=== PATIENT | female | born 1945 | race Caucasian/White ===

== ENCOUNTER 2017-07-13 13:30 | Outpatient (RCR) | payer MEDICARE, MEDICAID ==
[~2017-07-13 13:30] MED LIST: ALBU8.5H2 IH; ASP81TEC PO; ATEN-158 GT; ATOR10TA66 PO; CALC-794 PO; CODE-54 PO; FLUT10SP NS; GABA300C PO; HYDR-1231 PO; HYDR-3714 PO; HYOS0.1217 PO; HYOS0.1295 PO; Hydrocodone Bit/Acetaminophen PO; LEXAPRO PO; METO10TA3 PO; NITR100C PO; NTR.4SL SL; OMEP20TA2 PO; PNT40TEC PO; SMTR50T PO; SUMA100T2 PO; SUMA25TA3 PO; TOLT4CAP PO; TRIM100T7 PO; TROS20TA2 PO; TROS60CA3 PO; [UNRECOGNIZED DRUG - OTHER]
== END 2017-07-13 14:30 | disposition home or self-care (01) ==
PROVIDERS: ATTEND Nurse Practitioner
DX: M54.12 Radiculopathy, cervical region (principal)

== ENCOUNTER 2017-09-14 13:06 | Outpatient (CLI) | payer MEDICARE, MEDICAID ==
[~2017-09-14] VITALS: Ht 162.6 cm; Wt 90.8 kg
[~2017-09-14 13:06] MED LIST changes: +ACHD5005 PO; +ATEN50TA PO; +FLUT16SP22 NS; +NITR-68 PO; +PANT40TA3 PO; +SUMA25TA4 PO; +TRIM100T PO; +TROS20TA3 PO
[2017-09-14] MEDS ORDERED: DEXAMETHASONE 10 MG/ML (DECADRON) 1 ML VIAL ONE (13:10)
[2017-09-14 13:15] VITALS: BP 163/83
[2017-09-14 13:40] VITALS: BP 185/87
== END 2017-09-14 13:44 | disposition home or self-care (01) ==
LOC: CARD 13:06
PROVIDERS: ATTEND Pain Medicine Interventional Pain Medicine
DX: M54.12 Radiculopathy, cervical region (principal)
CPT/HCPCS: 62321

== ENCOUNTER 2017-11-04 21:10 | Emergency (ER) | payer MEDICARE, MEDICAID ==
[~2017-11-04] VITALS: Ht 162.6 cm; Wt 90.8 kg
--- NOTE | 2017-11-04 22:02 | Diagnostic Imaging Report ---
INDICATION: Chest pain Portable chest 9:56 PM There is a left subclavian central line. There is a dorsal column stimulator. Heart size and pulmonary vascularity is normal. Lungs are clear. IMPRESSION: No acute abnormalities in the chest Dictated by: Dictated on workstation # [id number]
--- NOTE | 2017-11-04 22:07 | ED General ---
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 She felt fine and then suddenly had pins and needles sensation in the skin overlying the Groshong. She states this was very tender to touch. She denied any chest tightness or shortness of breath or other chest pain. She was able to distract herself with some chores and the pain eventually subsided. She has no pain at all currently. She is concerned that this may represent port malfunction or displacement. Timing/Duration: 1/2 Hour Associated Systoms: No Chest Pain, No Cough Allergies and Home Medications Allergies Coded Allergies: hydromorphone (Verified Allergy, Unknown, 12/29/05) morphine (Verified Allergy, Unknown, 12/29/05) Home Medications Atenolol 50 Mg Tablet, 50 MG PO DAILY, (Reported) Fluticasone Propionate 16 Gm [place].susp, 2 SPRAYS NS DAILY, (Reported) Hydrocodone Bit/Acetaminophen 1 Tab Tab, 1-2 TAB PO Q4H PRN for PAIN-MODERATE TO SEVERE, (Reported) Hyoscyamine Sulfate 0.125 Mg/1 Ml Drops, 0.125 MG PO Q4-6HRS, (Reported) Nitrofurantoin Macrocrystal 100 Mg Capsule, 100 MG PO DAILY, (Reported) Pantoprazole Sodium 40 Mg Tablet.dr, 40 MG PO DAILY, (Reported) Sumatriptan Succinate 25 Mg Tablet, 25 MG PO UD, (Reported) 1 TAB AT ONSET OF FELIPE, MAY REPEAT X1 IN 2 HOURS Trimethoprim 100 Mg Tablet, 100 MG PO DAILY, (Reported) Trospium Chloride 20 Mg Tablet, 60 MG PO DAILY, (Reported) Patient Home Medication List Home Medication List Reviewed: Yes Review of Systems Constitutional: see HPI; No chills, No fever EENTM: see HPI Respiratory: no symptoms reported Cardiovascular: no symptoms reported Genitourinary: no symptoms reported Musculoskeletal: no symptoms reported Psychiatric/Neurological: No Symptoms Reported Past Asaqqii-Rllhwh-Eeelwy Hx Patient Social History Alcohol Use: Denies Use Recreational Drug Use: No Recent Foreign Travel: No Contact w/Someone Who Travel: No Recent Infectious Disease Expo: No Recent Hopitalizations: No Physical Abuse: No Sexual Abuse: No Immunizations Up To Date Tetanus Booster (TDap): More than 5yrs Date of Pneumonia Vaccine: Aug 02, 2010 Date of Influenza Vaccine: May 09, 2017 Seasonal Allergies Seasonal Allergies: No Past Medical History Surgeries: Yes (LEFT TOTAL KNEE, BACK, BLADDER SLING, CATARACTS, RIGHT ING HERNIA) 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, Orthopedic, Transurethral Resection Respiratory: No Currently Using CPAP: No Currently Using BIPAP: No Cardiac: No Neurological: No Reproductive Disorders: No Female Reproductive Disorders: Denies Sexually Transmitted Disease: No HIV/AIDS: No UTI-Chronic Gastrointestinal: Yes (CHRONIC CONSTIPATION;REFLUX; HERNIA REPAIR) Gastroesophageal Reflux Musculoskeletal: Yes (LUMBAR SPINAL STENOSIS) Arthritis Endocrine: No Cataract Loss of Vision: Denies Hearing Impairment: Denies Cancer: No Psychosocial: No Nursing Suicide Risk Score: 0 Integumentary: No Blood Disorders: No Adverse Reaction/Blood Tranf: No Family Medical History Cancer 03 FATHER Cataract 03 MOTHER Chest pain 03 MOTHER Family history: Arthritis 03 MOTHER Family history: Asthma 09 BROTHER Family history: Cardiovascular disease 03 MOTHER Family history: Hypertension 03 MOTHER Family history: Osteoporosis 03 MOTHER History of - respiratory disease 09 BROTHER Hypercholesterolemia 03 MOTHER Visual impairment 03 MOTHER No Family History of: Abdominal aortic aneurysm Jasper's disease Alcoholism Aphasia Cancer of colon Congenital heart disease Congestive heart failure Cystic fibrosis Dementia Dysphagia Family history: Allergy Family history: Alzheimer's disease Family history: Breast disease Family history: Coronary thrombosis Family history: Diabetes mellitus Family history: Gastrointestinal disease Family history: Glaucoma Family history: Thyroid disorder Headache Hearing loss Heart disease Hereditary disease History of - anemia History of - disorder History of drug abuse Human immunodeficiency virus (HIV) seropositivity Infertile Kidney disease Malignant neoplasm of lung Myocardial infarction Parkinson's disease Prostate cancer Psychotic disorder Seizure disorder Stroke Tuberculosis Physical Exam Vital Signs Vital Signs - First Documented 11/04/17 21:33 Temp 98.2 Pulse 78 Resp 18 B/P (MAP) 163/80 (107) Pulse Ox 95 Capillary Refill : Less Than 3 Seconds General Appearance: No Apparent Distress, WD/WN Eyes: Bilateral Eye Normal Inspection, Bilateral Eye PERRL, Bilateral Eye EOMI HEENT: PERRL/EOMI, TMs Normal Respiratory: No Accessory Muscle Use, No Respiratory Distress Cardiovascular: Regular Rate, Rhythm, Normal Peripheral Pulses Gastrointestinal: Non Tender, Soft Neurologic/Psychiatric: Alert, Oriented x3, No Motor/Sensory Deficits Skin: Normal Color, Warm/Dry, Other (There is a palpable nonmobile [place]shong to the left anterior upper chest wall. The overlying skin is intact without erythema ecchymosis or other abnormality. There is no tenderness to palpation at this time.) Progress/Results/Core Measures Suspected Sepsis Recent Fever Within 48 Hours: No Infection Criteria Present: None New/Unexplained Altered Menta: No Sepsis Screen: No Definite Risk SIRS Temperature:98.2 Pulse: 78 Respiratory Rate: 18 Blood Pressure 163 /80 Mean: 107 Results/Orders My Orders Orders - SILAS HERNÁNDEZ APRN Chest 1 View, Ap/Pa Only (11/04/17 21:46) Vital Signs/I&O 11/04/17 21:33 Temp 98.2 Pulse 78 Resp 18 B/P (MAP) 163/80 (107) Pulse Ox 95 Capillary Refill : Less Than 3 Seconds Blood Pressure Mean: 107 Departure Impression Primary Impression: Transient chest wall pain Disposition: 01 HOME, SELF-CARE Condition: Stable Departure-Patient Inst. Decision time for Depature: 22:14 Referrals: CYNTHIA ALATORRE MD (PCP/Family) Primary Care Physician Patient Instructions: NO INSTRUCTIONS GIVEN Add. Discharge Instructions: 1. Follow-up with Dr. Rodriguez next week 2. Return to ER for any recurrence of the symptoms or other concerns. All discharge instructions reviewed with patient and/or family. Voiced understanding. SILAS HERNÁNDEZ APRN Nov 04, 2017 22:07
[2017-11-04 22:25] VITALS: BP 163/80
--- OUTSIDE RECORDS SUMMARY | 2017-11-05 10:40 | XMS REPORT ---
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 Info Not Available Non Drug Allergy Problems Problem Type Condition Code Onset Dates Condition Status Assessment Caries K02.9 Active Assessment Dental examination Z01.20 Active Medications Medication Code System Code Instructions Start Date End Date Status Dosage Omeprazole ND 0 not defined Fluticasone Furoate [facility] [address]-82 not defined Atenolol [facility] [address]-60 not defined Lexapro [facility] [address]-32 not defined Detrol [facility] [address]-45 not defined Hydrocodone-Acetaminophen [facility] [address]-97 not defined Procedures Procedure Coding System Code Date INTRAORL-PERIAPICAL 1 FILM 39162 CPT-4 D0220 Jun 17, 2015 SURG REMOVAL ERUPTED TOOTH CPT-4 D7210 Jun 17, 2015 LTD ORAL EVALUATION - PROBLEM FOCUS CPT-4 D0140 Jun 17, 2015 Vital Signs Date/Time: Jun 17, 2015 Blood Pressure Diastolic 91 mmHg Blood Pressure Systolic 128 mmHg Results No Known Results Summary Purpose [employer] Submission
--- OUTSIDE RECORDS SUMMARY | 2017-11-05 10:41 | XMS REPORT | Continuity of Care Document ---
Author Author [facility] Organization [facility] Address Unknown Phone Unavailable Allergies Active Description Code Type Severity Reaction Onset Reported/Identified Relationship to Patient Clinical Status Yes DILAUDID SEVERE GI PROBLEMS - VOMITI Yes MORPHINE MILD GI PROBLEMS - NAUSEA Yes ciprofloxacin [id number] Drug Allergy Unknown N/A 12/29/2005 Yes hydromorphone [id number] Drug Allergy Unknown N/A 12/29/2005 Yes morphine [id number] Drug Allergy Unknown N/A 12/29/2005 Medications There is no data. Problems Date Dx Coded Attending Type Code Diagnosis Diagnosed By 03/02/2009 Ot 722.52 03/02/2009 Ot V57.1 12/09/2009 Ot 722.52 12/09/2009 Ot V43.65 12/09/2009 Ot V57.1 07/29/2011 Ot 780.50 SLEEP DISTURBANCE NOS 07/29/2011 Ot 786.09 RESPIRATORY ABNORM NEC 05/29/2013 AARON DING MD Ot 211.3 BENIGN NEOPLASM LG BOWEL 05/29/2013 AARON DING MD Ot 455.0 INT HEMORRHOID W/O COMPL 05/29/2013 AARON DING MD Ot 455.3 EXT HEMORRHOID W/O COMPL 05/29/2013 AARON DING MD Ot 562.10 DIVERTICULOSIS COLON (W/O MENT OF HEMORR 05/29/2013 AARON DING MD Ot V76.51 SCREEN MAL NEOP-COLON 08/03/2013 OLGA LIDIA SCHMITZ MD Ot 272.4 HYPERLIPIDEMIA NEC/NOS 08/03/2013 OLGA LIDIA SCHMITZ MD Ot 278.00 OBESITY, NOS 08/03/2013 OLGA LIDIA SCHMITZ MD Ot 401.9 HYPERTENSION NOS 08/03/2013 OLGA LIDIA SCHMITZ MD Ot 715.90 OSTEOARTHROS NOS-UNSPEC 08/03/2013 OLGA LIDIA SCHMITZ MD Ot 786.09 RESPIRATORY ABNORM NEC 08/03/2013 OLGA LIDIA SCHMITZ MD Ot 786.50 CHEST PAIN NOS 08/03/2013 OLGA LIDIA SCHMITZ MD Ot V43.65 KNEE JOINT REPLACEMENT STATUS 08/03/2013 OLGA LIDIA SCHMITZ MD, Ot V58.69 OTH MED,LT,CURRENT USE 08/03/2013 OLGA LIDIA SCHMITZ MD Ot V85.41 BODY MASS INDEX 40.0-44.9, ADULT 09/12/2013 RAÚL CALDERA DO Ot 327.23 OBSTRUCTIVE SLEEP APNEA (ADULT) (PEDIATR 09/12/2013 RAÚL CALDERA DO Ot 785.0 TACHYCARDIA NOS 09/13/2013 ZACHERY ROLLINS MD Ot 721.3 LUMBOSACRAL SPONDYLOSIS 09/13/2013 ZACHERY ROLLINS MD Ot 724.6 DISORDERS OF SACRUM 09/13/2013 ZACHERY ROLLINS MD Ot 729.1 MYALGIA AND MYOSITIS NOS 09/13/2013 ZACHERY ROLLINS MD Ot 737.30 IDIOPATHIC SCOLIOSIS 09/13/2013 ZACHERY ROLLINS MD, Ot V58.69 OTH MED,LT,CURRENT USE 10/11/2013 ZACHERY ROLLINS MD Ot 278.00 OBESITY, NOS 10/11/2013 ZACHERY ROLLINS MD Ot 721.3 LUMBOSACRAL SPONDYLOSIS 10/11/2013 ZACHERY ROLLINS MD Ot 724.6 DISORDERS OF SACRUM 10/11/2013 ZACHERY ROLLINS MD Ot 729.1 MYALGIA AND MYOSITIS NOS 10/11/2013 ZACHERY ROLLINS MD Ot 737.30 IDIOPATHIC SCOLIOSIS 10/11/2013 ZACHERY ROLLISN MD, Ot V58.69 OTH MED,LT,CURRENT USE 10/11/2013 ZACHERY ROLLINS MD Ot V85.39 BODY MASS INDEX 39.0-39.9, ADULT 11/11/2013 ZACHERY ROLLINS MD Ot 278.00 OBESITY, NOS 11/11/2013 ZACHERY ROLLINS MD Ot 721.3 LUMBOSACRAL SPONDYLOSIS 11/11/2013 ZACHERY ROLLINS MD Ot 724.6 DISORDERS OF SACRUM 11/11/2013 ZACHERY ROLLINS MD Ot 729.1 MYALGIA AND MYOSITIS NOS 11/11/2013 ZACHERY ROLLINS MD, Ot V58.69 OTH MED,LT,CURRENT USE 11/11/2013 ZACHERY ROLLINS MD Ot V85.38 BODY MASS INDEX 38.0-38.9, ADULT 11/19/2013 RAÚL CALDERA DO Ot 327.23 OBSTRUCTIVE SLEEP APNEA (ADULT) (PEDIATR 12/20/2013 ZACHERY ROLLINS MD Ot 278.00 OBESITY, NOS 12/20/2013 ZACHERY ROLLINS MD Ot 721.3 LUMBOSACRAL SPONDYLOSIS 12/20/2013 ZACHERY ROLLINS MD Ot 724.6 DISORDERS OF SACRUM 12/20/2013 ZACHERY ROLLINS MD Ot 729.1 MYALGIA AND MYOSITIS NOS 12/20/2013 ZACHERY ROLLINS MD, Ot V58.69 OTH MED,LT,CURRENT USE 12/20/2013 ZACHERY ROLLINS MD Ot V85.37 BODY MASS INDEX 37.0-37.9, ADULT 03/12/2014 DAWSON BUSCH MD Ot 338.29 OTHER CHRONIC PAIN 03/12/2014 DAWSON BUSCH MD Ot 457.1 OTHER LYMPHEDEMA 03/12/2014 DAWSON BUSCH MD Ot 724.3 SCIATICA 03/12/2014 DAWSON BUSCH MD Ot V57.1 PHYSICAL THERAPY NEC 05/26/2014 ZACHERY ROLLINS MD Ot 338.29 OTHER CHRONIC PAIN 05/26/2014 ZACHERY ROLLINS MD Ot 722.52 LUMB/LUMBOSAC DISC DEGEN 05/26/2014 ZACHERY ROLLINS MD Ot 722.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 06/14/2014 HARLEEN GUY MD Ot 311 06/14/2014 HARLEEN GUY MD Ot 401.9 06/14/2014 HARLEEN GUY MD Ot 530.81 06/14/2014 HARLEEN GUY MD Ot 564.00 06/14/2014 HARLEEN GUY MD Ot 599.0 06/14/2014 HARLEEN GUY MD Ot 724.02 06/14/2014 HARLEEN GUY MD Ot 820.8 06/14/2014 HARLEEN GUY MD Ot E849.0 06/14/2014 HARLEEN GUY MD Ot E885.9 06/14/2014 HARLEEN GUY MD Ot V43.65 06/16/2014 HARLEEN GUY MD Ot 276.1 HYPOSMOLALITY 06/16/2014 HARLEEN GUY MD Ot 276.69 OTHER FLUID OVERLOAD 06/16/2014 HARLEEN GUY MD Ot 311 DEPRESSIVE DISORDER NEC 06/16/2014 HARLEEN GUY MD Ot 401.9 HYPERTENSION NOS 06/16/2014 HARLEEN GUY MD Ot 530.81 ESOPHAGEAL REFLUX 06/16/2014 HARLEEN GUY MD Ot 564.00 UNSPEC CONSTIPATION 06/16/2014 HARLEEN GUY MD Ot 599.0 URIN TRACT INFECTION NOS 06/16/2014 HARLEEN GUY MD Ot 724.02 SPINAL STENOSIS, LUMBAR REG, W/OUT NEURO 06/16/2014 HARLEEN GUY MD Ot 780.60 FEVER, UNSPECIFIED 06/16/2014 HARLEEN GUY MD Ot 820.8 FX NECK OF FEMUR NOS-CL 06/16/2014 HARLEEN GUY MD Ot 873.63 TOOTH (BROKEN) (FRACTURED) (DUE TO TRAUM 06/16/2014 HARLEEN GUY MD Ot E849.0 ACCIDENT IN HOME 06/16/2014 HARLEEN GUY MD Ot E885.9 FALL FROM SLIPPING, TRIPPING, OR STUMBLI 06/16/2014 HARLEEN GUY MD Ot V43.65 KNEE JOINT REPLACEMENT STATUS 06/16/2014 Ot V76.12 06/16/2014 Ot V76.12 06/16/2014 AARON DING MD Ot V72.84 06/16/2014 RAÚL CALDERA DO Ot 278.00 06/16/2014 RAÚL CALDERA DO Ot 401.9 06/16/2014 RAÚL CALDERA DO Ot 553.3 06/16/2014 RAÚL CALDERA DO Ot 571.8 06/16/2014 RAÚL CALDERA DO Ot 716.90 06/16/2014 RAÚL CALDERA DO Ot 786.05 06/16/2014 RAÚL CALDERA DO Ot 278.00 06/16/2014 RAÚL CALDERA DO Ot 401.9 06/16/2014 RAÚL CALDERA DO Ot 786.05 06/16/2014 RAÚL CALDERA DO Ot 786.09 06/16/2014 ZACHERY ROLLINS MD Ot 278.00 06/16/2014 ZACHERY ROLLINS MD Ot 721.3 06/16/2014 ZACHERY ROLLINS MD Ot 724.6 06/16/2014 ZACHERY ROLLINS MD Ot 729.1 06/16/2014 ZACHERY ROLLINS MD Ot V58.69 06/16/2014 ZACHERY ROLLINS MD Ot V85.38 06/16/2014 ZACHERY ROLLINS MD Ot 721.3 06/16/2014 ZACHERY ROLLINS MD Ot 722.83 06/16/2014 ZACHERY ROLLINS MD Ot 724.6 06/16/2014 ZACHERY ROLLINS MD Ot 729.1 06/16/2014 ZACHERY ROLLINS MD Ot V58.69 06/16/2014 ZACHERY ROLLINS MD Ot 338.29 06/16/2014 ZACHERY ROLLINS MD Ot 722.83 06/16/2014 ZACHERY ROLLINS MD Ot V72.83 06/16/2014 ZACHERY ROLLINS MD Ot V74.8 06/26/2014 GARY SOLOMON UBALDO E Ot 285.9 06/26/2014 GARY SOLOMON UBALDO E Ot 401.9 06/26/2014 UBALDO VEGA MD E Ot 530.81 06/26/2014 GARY SOLOMON UBALDO E Ot 564.00 06/26/2014 GARY SOLOMON UBALDO E Ot 599.0 06/26/2014 UBALDO VEGA MD Ot 724.02 06/26/2014 UBALDO VEGA MD E Ot V54.13 06/26/2014 UBALDO VEGA MD E Ot V57.89 06/27/2014 GARY SOLOMON UBALDO E Ot 285.9 ANEMIA NOS 06/27/2014 GARY SOLOMON UBALDO E Ot 401.9 HYPERTENSION NOS 06/27/2014 GARY SOLOMON UBALDO E Ot 530.81 ESOPHAGEAL REFLUX 06/27/2014 GARY SOLOMON UBALDO E Ot 564.00 UNSPEC CONSTIPATION 06/27/2014 GARY SOLOMON UBALDO E Ot 599.0 URIN TRACT INFECTION NOS 06/27/2014 GARY SOLOMON UBALDO E Ot 724.02 SPINAL STENOSIS, LUMBAR REG, W/OUT NEURO 06/27/2014 GARY SOLOMON UBALDO E Ot 873.63 TOOTH (BROKEN) (FRACTURED) (DUE TO TRAUM 06/27/2014 UBALDO VEGA MD Ot E849.7 ACCID IN RESIDENT INSTIT 06/27/2014 UBALDO VEGA MD, Ot E879.8 ABN REACT-PROCEDURE NEC 06/27/2014 UBALDO VEGA MD, Ot V54.13 AFTERCARE HEALING TRAUMATIC FX HIP 06/27/2014 UBALDO VEGA MD Ot V57.89 REHABILITATION PROC NEC 07/30/2014 DAWSON BUSCH MD Ot 599.0 08/12/2014 DAWSON BUSCH MD Ot 599.0 09/05/2014 ZACHERY ROLLINS MD Ot 338.4 CHRONIC PAIN SYNDROME 09/05/2014 ZACHERY ROLLINS MD Ot 721.3 LUMBOSACRAL SPONDYLOSIS 09/05/2014 ZACHERY ROLLINS MD Ot 722.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 09/05/2014 ZACHERY ROLLINS MD Ot 724.6 DISORDERS OF SACRUM 09/05/2014 ZACHERY ROLLINS MD, Ot V58.69 OTH MED,LT,CURRENT USE 10/13/2014 ZACHERY ROLLINS MD Ot 338.4 CHRONIC PAIN SYNDROME 10/13/2014 ZACHERY ROLLINS MD Ot 721.3 LUMBOSACRAL SPONDYLOSIS 10/13/2014 ZACHERY ROLLINS MD Ot 722.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 10/13/2014 ZACHERY ROLLINS MD Ot 724.6 DISORDERS OF SACRUM 10/13/2014 ZACHERY ROLLINS MD Ot 729.1 MYALGIA AND MYOSITIS NOS 10/13/2014 ZACHERY ROLLINS MD Ot 737.30 IDIOPATHIC SCOLIOSIS 10/13/2014 ZACHERY ROLLINS MD, Ot V58.69 OTH MED,LT,CURRENT USE 10/21/2014 Ot 721.3 10/21/2014 Ot 724.00 10/30/2014 Ot 721.3 10/30/2014 Ot 724.00 11/03/2014 HARLEEN GUY MD Ot 722.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 11/03/2014 HARLEEN GUY MD Ot 791.9 ABN URINE FINDINGS NEC 11/03/2014 HARLEEN GUY MD Ot V64.3 NO PROC FOR REASONS NEC 11/17/2014 HARLEEN GUY MD Ot 401.9 HYPERTENSION NOS 11/17/2014 HARLEEN GUY MD Ot 530.81 ESOPHAGEAL REFLUX 11/17/2014 HARLEEN GUY MD Ot 553.3 DIAPHRAGMATIC HERNIA 11/17/2014 HARLEEN GUY MD Ot 722.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 11/20/2014 HARLEEN GUY MD Ot 401.9 11/20/2014 HARLEEN GUY MD Ot 530.81 11/20/2014 HARLEEN GUY MD Ot 553.3 11/20/2014 HARLEEN GUY MD Ot 722.83 11/25/2014 HARLEEN GUY MD Ot 722.83 11/25/2014 HARLEEN GUY MD Ot V72.63 11/25/2014 HARLEEN GUY MD Ot V72.81 11/25/2014 HARLEEN GUY MD Ot V74.8 12/12/2014 HARLEEN GUY MD Ot 722.83 12/12/2014 HARLEEN GUY MD Ot V72.63 12/12/2014 HARLEEN GUY MD Ot V72.81 12/12/2014 HARLEEN GUY MD Ot V74.8 05/03/2016 Ot V76.12 OTH SCREEN MAMMO-MALIGN NEOPLASM OF JACK 05/03/2016 Ot V76.12 OTH SCREEN MAMMO-MALIGN NEOPLASM OF JACK 05/03/2016 AARON DING MD Ot V72.84 EXAM PRE-OPERATIVE NOS 05/03/2016 RAÚL CALDERA DO Ot 278.00 OBESITY, NOS 05/03/2016 RAÚL CALDERA DO Ot 401.9 HYPERTENSION NOS 05/03/2016 RAÚL CALDERA DO Ot 553.3 DIAPHRAGMATIC HERNIA 05/03/2016 RAÚL CALDERA DO Ot 571.8 CHRONIC LIVER DIS NEC 05/03/2016 RAÚL CALDERA DO Ot 716.90 ARTHROPATHY NOS-UNSPEC 05/03/2016 RAÚL CALDERA DO Ot 786.05 SHORTNESS OF BREATH 05/03/2016 RAÚL CALDERA DO Ot 278.00 OBESITY, NOS 05/03/2016 RAÚL CALDERA DO Ot 401.9 HYPERTENSION NOS 05/03/2016 RAÚL CALDERA DO Ot 786.05 SHORTNESS OF BREATH 05/03/2016 RAÚL CALDERA DO Ot 786.09 RESPIRATORY ABNORM NEC 05/03/2016 ZACHERY ROLLINS MD Ot 278.00 OBESITY, NOS 05/03/2016 ZACHERY ROLLINS MD Ot 721.3 LUMBOSACRAL SPONDYLOSIS 05/03/2016 ZACHERY ROLLINS MD Ot 724.6 DISORDERS OF SACRUM 05/03/2016 ZACHERY ROLLINS MD Ot 729.1 MYALGIA AND MYOSITIS NOS 05/03/2016 ZACHERY ROLLINS MD Ot V58.69 OTH MED,LT,CURRENT USE 05/03/2016 ZACHERY ROLLINS MD Ot V85.38 BODY MASS INDEX 38.0-38.9, ADULT 05/03/2016 ZACHERY ROLLINS MD, Ot 721.3 LUMBOSACRAL SPONDYLOSIS 05/03/2016 ZACHERY ROLLINS MD, Ot 722.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 05/03/2016 ZACHERY ROLLINS MD, Ot 724.6 DISORDERS OF SACRUM 05/03/2016 ZACHERY ROLLINS MD, Ot 729.1 MYALGIA AND MYOSITIS NOS 05/03/2016 ZACHERY ROLLINS MD, Ot V58.69 OTH MED,LT,CURRENT USE 05/03/2016 ZACHERY ROLLINS MD Ot 338.29 OTHER CHRONIC PAIN 05/03/2016 ZACHERY ROLLINS MD Ot 722.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 05/03/2016 ZACHERY ROLLINS MD Ot V72.83 EXAM PRE-OPERATIVE NEC 05/03/2016 ZACHERY ROLLINS MD Ot V74.8 SCREEN-BACTERIAL DIS NEC 05/03/2016 DAWSON BUSCH MD Ot 599.0 URIN TRACT INFECTION NOS 05/03/2016 Ot 721.3 LUMBOSACRAL SPONDYLOSIS 05/03/2016 Ot 724.00 SPINAL STENOSIS NOS 05/03/2016 HARLEEN GUY MD Ot 722.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 05/03/2016 HARLEEN GUY MD Ot V72.63 PRE-PROCEDURAL LABORATORY EXAMINATION 05/03/2016 HARLEEN GUY MD Ot V72.81 [id number] CARDIOVASCULAR 05/03/2016 HARLEEN GUY MD, Ot V74.8 SCREEN-BACTERIAL DIS NEC 05/03/2016 CHANG SOLOMON, DARRELL M Ot K20.9 ESOPHAGITIS, UNSPECIFIED 05/03/2016 CHANG SOLOMON, DARRELL M Ot K44.9 DIAPHRAGMATIC HERNIA WITHOUT OBSTRUCTION 05/05/2016 CHANG SOLOMON, DARRELL M Ot K20.9 ESOPHAGITIS, UNSPECIFIED 05/05/2016 CHANG SOLOMON, DARRELL M Ot K44.9 DIAPHRAGMATIC HERNIA WITHOUT OBSTRUCTION 05/13/2016 CHANG SOLOMON, DARRELL M Ot K20.9 ESOPHAGITIS, UNSPECIFIED 05/13/2016 CHANG SOLOMON, DARRELL M Ot K44.9 DIAPHRAGMATIC HERNIA WITHOUT OBSTRUCTION 05/13/2016 CHANG SOLOMON, DARRELL M Ot K20.9 ESOPHAGITIS, UNSPECIFIED 05/13/2016 CHANG SOLOMON, DARRELL M Ot K44.9 DIAPHRAGMATIC HERNIA WITHOUT OBSTRUCTION 05/27/2017 Brown, Dawson W 599.0 URINARY TRACT INFECTION, SITE NOT SPECIFIED 05/27/2017 Brown, Dawson W N39.0 URINARY TRACT INFECTION, SITE NOT SPECIFIED 05/27/2017 Brown, Dawson W 599.0 URINARY TRACT INFECTION, SITE NOT SPECIFIED 05/27/2017 Brown, Dawson W N39.0 URINARY TRACT INFECTION, SITE NOT SPECIFIED 06/13/2017 CANDELARIA ANDERSON SENIOR SOFTWARE QA ANALYST Ot M54.12 RADICULOPATHY, CERVICAL REGION 06/20/2017 CANDELARIA ANDERSON SENIOR SOFTWARE QA ANALYST Ot M54.12 RADICULOPATHY, CERVICAL REGION 07/13/2017 CANDELARIA ANDERSON SENIOR SOFTWARE QA ANALYST Ot M54.12 RADICULOPATHY, CERVICAL REGION 08/17/2017 SARAH FU MD Ot Z45.2 ENCOUNTER FOR ADJUSTMENT AND MANAGEMENT 09/13/2017 SARAH FU MD Ot Z45.2 ENCOUNTER FOR ADJUSTMENT AND MANAGEMENT 09/14/2017 SARAH FU MD Ot Z45.2 ENCOUNTER FOR ADJUSTMENT AND MANAGEMENT 09/14/2017 CHANDRA ALVAREZ DO Ot M54.12 RADICULOPATHY, CERVICAL REGION 09/15/2017 CHANDRA ALVAREZ DO Ot M54.12 RADICULOPATHY, CERVICAL REGION 09/25/2017 SARAH FU MD, Ot Z45.2 ENCOUNTER FOR ADJUSTMENT AND MANAGEMENT 10/12/2017 SARAH FU MD, Ot Z45.2 ENCOUNTER FOR ADJUSTMENT AND MANAGEMENT Procedures Code Description Performed By Performed On 78.55 06/11/2014 Results Test Result Range Thyroid Stimulating Hormone - 06/24/16 16:45 TSH 1.27 mIU/mL 0.32-5.00 Urinalysis - 09/27/16 18:15 Icotest N/A Negative Urine Volume Urine Volume Sufficient (10mL) Urine Yeast No Yeast present Urine-Appearance Cloudy Clear Urine-Bacteria 2+ Urine-Bilirubin Negative Negative Urine-Blood Trace-intact Negative Urine-Color Yellow Colorless-Lt. Yellow Urine-Epithelial Cells 5-10/HPF Urine-Glucose Negative Negative Urine-Ketones Negative Negative Urine-Leukocytes 3+ Negative Urine-Nitrite Positive Negative Urine-Other Culture to follow Urine-pH 7.5 5-8.5 Urine-Protein 1+ Negative Urine-RBC 2-5/HPF Urine-Specific [place] 1.020 1.000-1.030 Urine-WBC TNTC Urobilinogen 0.2 0.2-1.0 Urine Culture - 09/27/16 18:15 PRELIM CULTURE RESULTS >100,000 Gram Negative Lactose Party Plan Sales Host/Hostess MONET / ID to Follow MEDIA PLATED Setup at 18:34 on 09/27/2016 CULTURE SOURCE void Sensi - 09/27/16 18:15 FINAL CULTURE RESULTS Klebsiella pneumoniae (Isolate 1) Ampicillin/Sulbactam 16/8 Ampicillin >16 Amoxicillin/K Clavulanate <=8/4 Ceftriaxone <=8 Ciprofloxacin <=1 Nitrofurantoin >64 Gentamicin <=4 Levofloxacin <=2 Trimethoprim/ Sulfamethoxazole >2/38 Tetracycline >8 Amikacin <=16 Aztreonam <=8 Ceftazidime <=1 Ceftazidime/K Clavulanate <=0.25 Cephalothin >16 Cefotaxime <=2 Cefotaxime/K Clavulanate <=0.5 Cefoxitin >16 Cefazolin 16 Cefepime <=8 Cefuroxime >16 Ertapenem <=1 Imipenem <=4 Meropenem <=4 Piperacillin/Tazobactam <=16 Piperacillin <=16 Tigecycline <=2 Tobramycin <=4 Urine Culture - 10/24/16 16:15 PRELIM CULTURE RESULTS No Growth 24 hours FINAL CULTURE RESULTS <10,000 Gram Positive Mixed Sana [id number] Skin Contaminant MEDIA PLATED Setup at 15:38 on 10/25/2016 CULTURE SOURCE void VIT B-12 - 12/23/16 17:00 Vitamin B12 744.00 pg/mL 213.00-816.00 Urine Culture - 12/23/16 21:15 PRELIM CULTURE RESULTS 20,000-50,000 Gram Positive Mixed Sana Probable Skin Contaminant FINAL CULTURE RESULTS No Further Workup done MEDIA PLATED Setup at 21:20 on 12/23/2016 CULTURE SOURCE [id number] Urine Culture - 01/10/17 16:38 PRELIM CULTURE RESULTS No Growth 24 hours FINAL CULTURE RESULTS No Growth 48 hours MEDIA PLATED Setup at 15:13 on 01/11/2017 CULTURE SOURCE void Draw Fee[i] - 05/27/17 15:45 Urine Culture - 05/27/17 15:45 PRELIM CULTURE RESULTS 20,000-50,000 Gram Negative Lactose Party Plan Sales Host/Hostess. MONET / ID to Follow. CULTURE SOURCE voided Sensi - 05/27/17 15:45 FINAL CULTURE RESULTS Escherichia coli (Isolate 1) Ampicillin/Sulbactam >16/8 Ampicillin >16 Amoxicillin/K Clavulanate 16/8 Ceftriaxone <=8 Ciprofloxacin >2 Nitrofurantoin <=32 Gentamicin >8 Levofloxacin >4 Trimethoprim/ Sulfamethoxazole >2/38 Tetracycline >8 Amikacin <=16 Aztreonam <=8 Ceftazidime <=1 Ceftazidime/K Clavulanate <=0.25 Cephalothin >16 Cefotaxime <=2 Cefotaxime/K Clavulanate <=0.5 Cefoxitin <=8 Cefazolin >16 Cefepime <=8 Cefuroxime 8 Ertapenem <=1 Imipenem <=4 Meropenem <=4 Piperacillin/Tazobactam 64 Piperacillin >64 Tigecycline <=2 Tobramycin >8 Automated blood complete blood count (hemogram) panel - 09/13/17 15:00 Blood leukocytes automated count (number/volume) 5.8 10*3/uL 4.3-11.0 Blood erythrocytes automated count (number/volume) 4.24 10*6/uL 4.35-5.85 Venous blood hemoglobin measurement (mass/volume) 12.9 g/dL 11.5-16.0 Blood hematocrit (volume fraction) 40 % 35-52 Automated erythrocyte mean corpuscular volume 93 [foz_us] 80-99 Automated erythrocyte mean corpuscular hemoglobin (mass per erythrocyte) 30 pg 25-34 Automated erythrocyte mean corpuscular hemoglobin concentration measurement ( mass/volume) 33 g/dL 32-36 Automated erythrocyte distribution width ratio 14.1 % 10.0-14.5 Automated blood platelet count (count/volume) 161 10*3/uL 130-400 Automated blood platelet mean volume measurement 10.4 [foz_us] 7.4-10.4 Comprehensive metabolic panel - 09/13/17 15:00 Serum or plasma sodium measurement (moles/volume) 142 mmol/L 135-145 Serum or plasma potassium measurement (moles/volume) 4.1 mmol/L 3.6-5.0 Serum or plasma chloride measurement (moles/volume) 109 mmol/L 98-107 Carbon dioxide 25 mmol/L 21-32 Serum or plasma anion gap determination (moles/volume) 8 mmol/L 5-14 Serum or plasma urea nitrogen measurement (mass/volume) 14 mg/dL 7-18 Serum or plasma creatinine measurement (mass/volume) 0.75 mg/dL 0.60-1.30 Serum or plasma urea nitrogen/creatinine mass ratio 19 NRG Serum or plasma creatinine measurement with calculation of estimated glomerular filtration rate > NRG Serum or plasma glucose measurement (mass/volume) 76 mg/dL 70-105 Serum or plasma calcium measurement (mass/volume) 9.1 mg/dL 8.5-10.1 Serum or plasma total bilirubin measurement (mass/volume) 0.8 mg/dL 0.1-1.0 Serum or plasma alkaline phosphatase measurement (enzymatic activity/volume) 107 U/L 40-136 Serum or plasma aspartate aminotransferase measurement (enzymatic activity/ volume) 21 U/L 5-34 Serum or plasma alanine aminotransferase measurement (enzymatic activity/volume ) 20 U/L 0-55 Serum or plasma protein measurement (mass/volume) 6.2 g/dL 6.4-8.2 Serum or plasma albumin measurement (mass/volume) 3.6 g/dL 3.2-4.5 Lipid 1996 panel - 09/13/17 15:00 Serum or plasma triglyceride measurement (mass/volume) 85 mg/dL <150 Serum or plasma cholesterol measurement (mass/volume) 207 mg/dL < 200 Serum or plasma cholesterol in HDL measurement (mass/volume) 80 mg/ dL 40-60 Cholesterol in LDL [mass/volume] in serum or plasma by direct assay 112 mg/dL 1-129 Serum or plasma cholesterol in VLDL measurement (mass/volume) 17 mg/ dL 5-40 THYROID STIMULATING HORMONE - 09/13/17 15:00 THYROID STIMULATING HORMONE 1.50 u[iU]/mL 0.35-4.94 Serum or plasma thyroxine (T4) free measurement (mass/volume) - 09/13/17 15:00 Serum or plasma thyroxine (T4) free measurement (mass/volume) 0.91 ng/dL 0.70-1.48 Hemoglobin A1c - 09/13/17 15:00 Blood hemoglobin A1C measurement (mass/volume) 4.7 % 4.0- 5.6 MEAN BLOOD GLUCOSE 88 % <=126 Encounters ACCT No. Visit Date/Time Discharge Status Pt. Type Provider Facility Loc./Unit Complaint [id number] 10/12/2017 12:47:00 10/12/2017 23:59:59 CLS Outpatient SARAH FU MD [facility] LEFT SUBCLAVIAN PORT [id number] 09/14/2017 13:06:00 09/14/2017 13:44:00 DIS Outpatient CHANDRA ALVAREZ DO [facility] CARD M54.12 CERVICAL RADICULOPATHY [id number] 07/13/2017 13:30:00 07/13/2017 14:30:00 DIS Outpatient CANDELARIA ANDERSON APRN [facility] REHAB CERVICAL RADICULOPATHY; CERVICALGIA [id number] 05/03/2016 07:46:00 05/03/2016 11:10:00 DIS Outpatient DARRELL DOWNING MD [facility] GERD [id number] 11/17/2014 07:53:00 11/17/2014 14:45:00 DIS Outpatient HARLEEN GUY MD [facility] POST OPERATIVE SPINE SYNDROME [id number] 11/03/2014 08:58:00 11/03/2014 11:20:00 DIS Outpatient HARLEEN GUY MD [facility] POST LAMINECTOMY SYNDROME [id number] 10/21/2014 13:59:00 10/21/2014 23:59:59 CLS Outpatient HARLEEN GUY MD [facility] PREOP POST LAMINECTOMY SYNDROME [id number] 10/13/2014 13:54:00 10/13/2014 15:34:00 DIS Outpatient ZACHERY ROLLINS MD [facility] CARD LUMBAR SPONDOLOYSIS [id number] 09/05/2014 09:15:00 09/05/2014 10:19:00 DIS Outpatient ZACHERY ROLLINS MD [facility] CARD LUMBAR SPONDOLOYSIS SACROLILIAC JOINT DSYFUNCTION [id number] 08/05/2014 12:03:00 08/05/2014 23:59:59 CLS Preadmit UCHE SOLOMON, ROS Zeng [facility] DYSURIA,POSSIBLE UTI [id number] 07/08/2014 12:00:00 07/08/2014 23:59:59 CLS Outpatient DAWSON BUSCH MD [facility] UTI, DYSURIA [id number] 06/16/2014 09:50:00 06/27/2014 13:30:00 DIS Inpatient GARY SOLOMON, UBALDO Hennessy [facility] IRF IRF-R FEMORAL NECK FX, UTI [id number] 06/11/2014 19:00:00 06/16/2014 09:50:00 DIS Inpatient HARLEEN GUY MD [facility] SURGICAL R FEMORAL NECK FX, UTI [id number] 05/26/2014 11:30:00 05/26/2014 16:20:00 DIS Outpatient ZACHERY ROLLINS MD [facility] SDC CHRONIC PAIN [id number] 05/20/2014 14:36:00 05/20/2014 23:59:59 CLS Outpatient ZACHERY ROLLINS MD [facility] PREOP CHRONIC PAIN [id number] 04/21/2014 14:34:00 04/21/2014 23:59:59 CLS Outpatient ZACHERY ROLLINS MD [facility] CARD SIJD [id number] 02/20/2014 15:15:00 02/20/2014 23:59:59 CLS Outpatient DAWSON BUSCH MD [facility] REHAB LYMPHEDEMA L LE; CHRONIC BACK PAIN R SCIATICA [id number] 12/20/2013 09:17:00 12/20/2013 10:39:00 DIS Outpatient ZACHERY ROLLINS MD [facility] CARD SACROILLIAC JOINT DYSFUNCTION [id number] 12/09/2013 13:20:00 12/09/2013 23:59:59 CLS Outpatient ZACHERY ROLLINS MD [facility] CARD SJD [id number] 11/18/2013 21:02:00 11/19/2013 06:45:00 DIS Outpatient RAÚL CALDERA DO [facility] SLEEP DAISHA [id number] 11/11/2013 12:13:00 11/11/2013 13:44:00 DIS Outpatient ZACHERY ROLLINS MD [facility] SACRAL ILLIAC JOINT DSYFUNCTION [id number] 10/11/2013 08:33:00 10/11/2013 09:09:00 DIS Outpatient ZACHERY ROLLINS MD [facility] CARD SACRALILLIAC JOINT DYSFUNCTION [id number] 09/13/2013 07:45:00 09/13/2013 08:40:00 DIS Outpatient ZACHERY ROLLINS MD [facility] CARD SACROILLIAC JOINT DSYFUNCTION [id number] 09/11/2013 20:57:00 09/12/2013 06:30:00 DIS Outpatient RAÚL CALDERA DO [facility] SLEEP SNORING,HTN,CHOKING/ GASPING,EDS,MOOD DISORDER [id number] 09/11/2013 14:03:00 09/11/2013 23:59:59 CLS Outpatient RAÚL CALDERA DO [facility] RT SOB,SNORING [id number] 08/09/2013 09:39:00 08/09/2013 23:59:59 CLS Outpatient RAÚL CALDERA DO [facility] RAD SOB [id number] 08/02/2013 21:30:00 08/03/2013 16:30:00 DIS Outpatient OLGA LIDIA SCHMITZ MD [facility] CATH CHEST PAIN; UNSTABLE ANGINA, DYSPNEA OR EXERTION [id number] 05/29/2013 08:21:00 05/29/2013 12:20:00 DIS Outpatient AARON DING MD [facility] SCREENING; HX POLYPS [id number] 05/23/2013 07:14:00 05/23/2013 23:59:59 CLS Outpatient AARON DING MD [facility] PREOP SCREENING; HX POLYPS [id number] 03/28/2013 16:59:00 03/28/2013 23:59:59 CLS Outpatient [id number] 02/12/2013 19:04:00 02/12/2013 23:59:59 CLS Outpatient [id number] 09/22/2014 09:17:00 Document Registration [id number] 06/11/2014 19:52:00 Document Registration [id number] 11/09/2012 13:36:00 Document Registration [id number] 11/02/2011 14:09:00 Document Registration [id number] 07/28/2011 20:20:00 Document Registration [id number] 12/09/2009 13:04:00 Document Registration [id number] 02/18/2009 12:58:00 Document Registration [id number] 09/01/2017 11:40:00 09/01/2017 23:59:59 CLS Outpatient CYNTHIA ALATORRE [facility] [id number] 05/27/2017 17:41:00 05/27/2017 23:59:00 DIS Outpatient Dawson Busch [id number] 01/10/2017 14:45:00 01/10/2017 23:59:00 DIS Outpatient Deanna Hood [id number] 12/23/2016 20:53:00 12/23/2016 23:59:00 [facility] Outpatient Dawson Busch [id number] 10/24/2016 16:15:00 10/24/2016 23:59:00 [facility] Outpatient Dawson Busch [id number] 09/27/2016 18:14:00 09/27/2016 23:59:00 [facility] Outpatient Dawson Busch [id number] 06/24/2016 16:45:00 06/24/2016 23:59:00 [facility] Outpatient Dawson Busch
[2018-01-12] MEDS ORDERED: HYDR-34 PO (11:51)
[2018-01-12] MEDS ORDERED: CLOT30LO2 TP (11:51)
== END 2017-11-04 22:25 | disposition home or self-care (01) ==
LOC: EDUNIT# 21:10 → ER 21:13
DX: T85.848A Pain due to other internal prosthetic devices, implants and grafts, initial encounter (principal); G89.18 Other acute postprocedural pain; R07.89 Other chest pain; K21.9 Gastro-esophageal reflux disease without esophagitis; Z87.39 Personal history of other diseases of the musculoskeletal system and connective tissue; Z87.442 Personal history of urinary calculi; Z90.710 Acquired absence of both cervix and uterus; Z90.79 Acquired absence of other genital organ(s); Z96.652 Presence of left artificial knee joint; Z88.5 Allergy status to narcotic agent; Z96.0 Presence of urogenital implants; Z82.49 Family history of ischemic heart disease and other diseases of the circulatory system
CPT/HCPCS: 71045

== ENCOUNTER 2018-01-11 05:35 | Outpatient (CLI) | payer MEDICARE, MEDICAID ==
[~2018-01-11] VITALS: Ht 162.6 cm; Wt 90.8 kg
[2018-01-11] MEDS ORDERED: TOLT2CAP PO (10:12)
[2018-01-12] MEDS ORDERED: CLOT30LO2 TP (11:51)
[2018-01-12] MEDS ORDERED: HYDR-34 PO (11:51)
== END 2018-01-11 10:44 | disposition home or self-care (01) ==
LOC: PREOP 05:35
PROVIDERS: ATTEND Surgery
DX: Z29.8 Encounter for other specified prophylactic measures (principal)

== ENCOUNTER 2018-04-16 13:34 | Outpatient (RCR) | payer MEDICARE, MEDICAID ==
[~2018-04-16] VITALS: Ht 162.6 cm; Wt 90.8 kg
[~2018-04-16 13:34] MED LIST changes: +CLOT30LO2 TP; +HYDR-34 PO; +TOLT2CAP PO
[2018-04-16] MEDS ORDERED: HEParin (CENTRAL IV FLUSH) 500 UNIT/5 ML SYR ONE (13:38)
[2018-04-16 13:45] VITALS: BP 130/56
[2018-04-16] MEDS ORDERED: CATHETER FLUSH 10 ML SYR IV SCH (14:15)
[2018-04-16] MEDS ORDERED: HEParin (CENTRAL IV FLUSH) 500 UNIT/5 ML SYR IV PRN (14:15)
== END 2018-04-22 | disposition home or self-care (01) ==
LOC: SDC 13:34
PROVIDERS: ATTEND Pediatrics
DX: Z45.2 Encounter for adjustment and management of vascular access device (principal)
CPT/HCPCS: 96523

== ENCOUNTER 2018-07-20 14:25 | Outpatient (RCR) | payer MEDICARE, MEDICAID ==
[2018-05-17 13:50] VITALS: BP 182/82
[2018-06-20 14:20] VITALS: BP 156/84
[~2018-07-20] VITALS: Ht 162.6 cm; Wt 90.8 kg
[~2018-07-20 14:25] MED LIST changes: +HEParin (CENTRAL IV FLUSH) 500 UNIT/5 ML SYR ONE
[2018-07-20 14:53] VITALS: BP 137/93
== END 2018-08-15 | disposition home or self-care (01) ==
LOC: SDC 14:25
PROVIDERS: ATTEND Pediatrics
DX: Z45.2 Encounter for adjustment and management of vascular access device (principal)
CPT/HCPCS: 96523

== ENCOUNTER 2018-10-10 14:05 | Outpatient (CLI) | payer MEDICARE, MEDICAID ==
[~2018-10-10 14:05] MED LIST changes: -HEParin (CENTRAL IV FLUSH) 500 UNIT/5 ML SYR ONE
--- NOTE | 2018-10-10 14:40 | NUR ---
LABS DRAWN DURING PORT FLUSH
[2018-10-10 15:12] LABS: ALBUMIN 3.7 GM/DL (3.2-4.5); BILIRUBIN,TOTAL 0.4 MG/DL (0.1-1.0); CALCIUM 9.4 MG/DL (8.5-10.1); CREATININE SERUM 0.91 MG/DL (0.60-1.30); POTASSIUM 4.5 MMOL/L (3.6-5.0); TOTAL PROTEIN 6.1 GM/DL (6.4-8.2)
== END 2018-10-10 16:30 | disposition home or self-care (01) ==
LOC: LAB 14:05
PROVIDERS: ATTEND Family Medicine
DX: E78.5 Hyperlipidemia, unspecified (principal); R73.9 Hyperglycemia, unspecified; I10 Essential (primary) hypertension; G89.4 Chronic pain syndrome
CPT/HCPCS: 36415; 80053; 80061; 82043; 83036; 85652; 86141

== ENCOUNTER 2018-10-10 14:15 | Outpatient (RCR) | payer MEDICARE, MEDICAID ==
[2018-08-21 14:30] VITALS: BP 134/86
[~2018-10-10] VITALS: Ht 162.6 cm; Wt 90.8 kg
[2018-10-10 14:14] VITALS: BP 104/67
[~2018-10-10 14:15] MED LIST changes: +CATHETER FLUSH 10 ML SYR IV SCH; +HEParin (CENTRAL IV FLUSH) 500 UNIT/5 ML SYR IV PRN
== END 2018-11-19 | disposition home or self-care (01) ==
LOC: SDC 14:15
PROVIDERS: ATTEND Family Medicine
DX: Z45.2 Encounter for adjustment and management of vascular access device (principal)
CPT/HCPCS: 36591; 96523

== ENCOUNTER 2018-11-06 14:06 | Outpatient (RCR) | payer MEDICARE, MEDICAID ==
[2018-10-31] MEDS: cefTRIAXone 1,000 MG/SWFI 10 ML IV PUSH IV SCH ×2 (12:37)
[2018-10-31 12:39] VITALS: BP 141/97
[2018-10-31 12:49] VITALS: BP 141/97
[2018-11-01 14:05] VITALS: BP 142/82
[2018-11-01] MEDS: cefTRIAXone 1,000 MG/SWFI 10 ML IV PUSH IV SCH ×2 (14:15)
[2018-11-02] MEDS: cefTRIAXone 1,000 MG/SWFI 10 ML IV PUSH IV SCH ×2 (14:22)
[2018-11-02 14:25] VITALS: BP 129/82
[2018-11-03 14:30] VITALS: BP 130/77
[2018-11-03] MEDS: cefTRIAXone 1,000 MG/SWFI 10 ML IV PUSH IV SCH ×2 (14:34)
[2018-11-04 15:40] VITALS: BP 144/86
[2018-11-04] MEDS: cefTRIAXone 1,000 MG/SWFI 10 ML IV PUSH IV SCH ×2 (15:43)
[2018-11-05] MEDS: cefTRIAXone 1,000 MG/SWFI 10 ML IV PUSH IV SCH ×2 (14:00)
[2018-11-05 14:10] VITALS: BP 135/81
[~2018-11-06] VITALS: Ht 162.6 cm; Wt 90.7 kg
[~2018-11-06 14:06] MED LIST changes: -CATHETER FLUSH 10 ML SYR IV SCH; -HEParin (CENTRAL IV FLUSH) 500 UNIT/5 ML SYR IV PRN
[2018-11-06] MEDS: cefTRIAXone 1,000 MG/SWFI 10 ML IV PUSH IV SCH ×2 (14:10)
[2018-11-06 14:20] VITALS: BP 146/86
== END 2018-11-06 15:00 | disposition home or self-care (01) ==
LOC: SDC 14:06
PROVIDERS: ATTEND Urology
DX: N39.0 Urinary tract infection, site not specified (principal)
CPT/HCPCS: 96365; 96374

== ENCOUNTER 2019-02-24 16:13 | Emergency (ER) | payer MEDICARE, MEDICAID ==
[~2019-02-24] VITALS: Ht 162.6 cm; Wt 90.7 kg
--- NOTE | 2019-02-24 16:27 | NUR ---
PT TO ED 8 W/ FAMILY FOR C/O UTI SYMPTOMS ONSET X2 WKS. REPORTS HX OF SIMILAR SYMPTOMS X1 YR AGO ET WAS TX W/ ROCEPHIN ET KEFLEX AT THAT TIME. ALSO STATES SHE WAS SEEN IN AT URGENT CARE YESTERDAY, GIVEN A SHOT OF ROCEPHIN ET A RX OF BACTRIM BUT PT REPORTS SHE DOES NOT FEEL ANY BETTER AT THIS TIME. NO OTHER C/O VOICED
[2019-02-24 16:43] LABS: BILIRUBIN,URINE NEGATIVE (NEGATIVE); CLARITY,URINE CLOUDY; COLOR,URINE YELLOW; GLUCOSE, URINE (UA) NEGATIVE (NEGATIVE); KETONES,URINE NEGATIVE (NEGATIVE); LEUKOCYTE ESTERASE ,URINE 3+ (NEGATIVE); NITRITE,URINE POSITIVE (NEGATIVE); PH,URINE 6 (5-9); PROTEIN,URINE 3+ (NEGATIVE); UROBILINOGEN,URINE NORMAL (NORMAL)
--- NOTE | 2019-02-24 16:43 | ED GU-Female ---
General Chief Complaint: - Urinary Stated Complaint: UTI Nursing Triage Note: pt is having UTI symptoms- pain, urinary frequency.. Pt was seen in clinic et got a rocephin shot but she feels like her symptoms aren't getting better. Pt is weak and shaky. Denies fever. Nursing Sepsis Screen: No Definite Risk Source: patient (DIFFICULT HISTORIAN--GIVES CONFLICTING INFORMATION) History of Present Illness Date Seen by Provider: Feb 24, 2019 Time Seen by Provider: 16:27 Initial Comments PT ARRIVES VIA POV FROM HOME C/O UTI SYMPTOMS FOR 2 WEEKS--URGENCY, FREQUENCY, PAIN, SMALL AMOUNTS STATES SHE WENT TO [facility] YESTERDAY FOR THIS PROBLEM AND WAS GIVEN A SHOT OF ROCEPHIN AND RX FOR BACTRIM "NOT BETTER" SO CAME HERE TODAY HAS HISTORY OF SAME--HAS INTERSTITIAL CYSTITIS AND GETS FREQUENT UTI'S. NO FEVER, NO SWEATS, NO CHILLS HAS HAD NAUSEA OFF AND ON AND VOMITED X 1 YESTERDAY HAS MILD LOWER ABDOMINAL DISCOMFORT NO BACK PAIN STATES SHE FEELS "WEAK AND SHAKEY" HAS NOT TAKEN ANYTHING FOR SYMPTOMS HAS NOT ATTEMPTED TO SEEK CARE UNTIL THIS WEEKEND SYMPTOMS NO DIFFERENT TODAY PCP: [facility], DR. ALATORRE Allergies and Home Medications Allergies Coded Allergies: hydromorphone (Verified Allergy, Mild, "POISONS HER SYSTEM", 01/11/18) morphine (Verified Allergy, Mild, "POISONS HER SYSTEM", 01/11/18) Home Medications Atenolol 50 Mg Tablet, 50 MG PO DAILY, (Reported) Clotrimazole/Betamethasone Dip 30 Ml Lotion, 30 ML TP BID Prescribed by: AARON DING on 01/12/18 1151 Fluticasone Propionate 16 Gm [place].susp, 2 SPRAYS NS DAILY, (Reported) Hydrocodone Bit/Acetaminophen 1 Tab Tab, 1-2 TAB PO Q4H PRN for PAIN-MODERATE TO SEVERE, (Reported) Hydrocodone Bit/Acetaminophen 1 Ea Tablet, 1 EACH PO Q4H Prescribed by: AARON DING on 01/12/18 1151 Hyoscyamine Sulfate 0.125 Mg/1 Ml Drops, 0.125 MG PO Q4-6HRS, (Reported) Nitrofurantoin Macrocrystal 100 Mg Capsule, 100 MG PO DAILY, (Reported) Pantoprazole Sodium 40 Mg Tablet.dr, 40 MG PO DAILY, (Reported) Sumatriptan Succinate 25 Mg Tablet, 25 MG PO UD, (Reported) 1 TAB AT ONSET OF FELIPE, MAY REPEAT X1 IN 2 HOURS Tolterodine Tartrate 2 Mg Cap, 2 MG PO DAILY PRN for BLADDER SPASM, (Reported) Patient Home Medication List Home Medication List Reviewed: Yes Review of Systems Review of Systems Constitutional: No chills, No diaphoresis, No dizziness, No fever; weakness Respiratory: no symptoms reported Cardiovascular: no symptoms reported Gastrointestinal: abdominal pain, nausea, vomiting Genitourinary: see HPI, burning, dysuria, frequency; denies flank pain; urgency Musculoskeletal: no symptoms reported; No back pain Skin: no symptoms reported Psychiatric/Neurological: No Symptoms Reported Endocrine: No Symptoms Reported Hematologic/Lymphatic: No Symptoms Reported Past Ylvhzbe-Zpvadg-Dctcoc Hx Patient Social History Recent Foreign Travel: No Contact w/Someone Who Travel: No Recent Infectious Disease Expo: No Recent Hopitalizations: No Immunizations Up To Date Tetanus Booster (TDap): More than 5yrs PED Vaccines UTD: No Date of Pneumonia Vaccine: May 08, 2017 Date of Influenza Vaccine: May 09, 2017 Seasonal Allergies Seasonal Allergies: Yes Past Medical History Surgeries: Yes (LEFT TOTAL KNEE; BACK SURGERY--LUMBAR LAMINECTOMY; BLADDER SLING; CATARACTS; RIGHT INGUINAL HERNIA; EGD; PORT LEFT CHEST; RIGHT HIP FX/ORIF) Abdominal, Eye Surgery, 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, Joint Replacement, Orthopedic, Transurethral Resection Respiratory: No Currently Using CPAP: No Currently Using BIPAP: No Cardiac: Yes Hypertension Neurological: Yes Headaches /Migraines Reproductive Disorders: No Female Reproductive Disorders: Denies [employer] History: 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, Menopausal Sexually Transmitted Disease: No HIV/AIDS: No Genitourinary: Yes UTI-Chronic Gastrointestinal: Yes (CHRONIC CONSTIPATION; REFLUX ; HERNIA REPAIR) Gastroesophageal Reflux, Esophagitis Musculoskeletal: Yes (LUMBAR SPINAL STENOSIS--LUMBAR LAMINECTOMY; LEFT KNEE REPLACEMENT; RIGHT HIP FX/ORIF) Arthritis, Chronic Back Pain, Fractures Endocrine: No HEENT: Yes (S/P CATARACT SURGERY) Cataract Loss of Vision: Bilateral Hearing Impairment: Denies Cancer: No Psychosocial: No Integumentary: No Blood Disorders: No Adverse Reaction/Blood Tranf: No (N/A) Family Medical History Cancer 03 FATHER Cataract 03 MOTHER Chest pain 03 MOTHER Family history: Arthritis 03 MOTHER Family history: Asthma 09 BROTHER Family history: Cardiovascular disease 03 MOTHER Family history: Hypertension 03 MOTHER Family history: Osteoporosis 03 MOTHER History of - respiratory disease 09 BROTHER Hypercholesterolemia 03 MOTHER Visual impairment 03 MOTHER No Family History of: Abdominal aortic aneurysm Nick's disease Alcoholism Aphasia Cancer of colon Congenital heart disease Congestive heart failure Cystic fibrosis Dementia Dysphagia Family history: Allergy Family history: Alzheimer's disease Family history: Breast disease Family history: Coronary thrombosis Family history: Diabetes mellitus Family history: Gastrointestinal disease Family history: Glaucoma Family history: Thyroid disorder Headache Hearing loss Heart disease Hereditary disease History of - anemia History of - disorder History of drug abuse Human immunodeficiency virus (HIV) seropositivity Infertile Kidney disease Malignant neoplasm of lung Myocardial infarction Parkinson's disease Prostate cancer Psychotic disorder Seizure disorder Stroke Tuberculosis Physical Exam Vital Signs Vital Signs - First Documented 02/24/19 16:17 Temp 98.0 Pulse 78 Resp 20 B/P (MAP) 128/98 (108) Pulse Ox 100 O2 Delivery Room Air Capillary Refill : Less Than 3 Seconds Height, Weight, BMI Height: 5'4.00" Weight: 200lbs. 0.0oz. [id number]; 34.4 BMI Method:Stated General Appearance: WD/WN, no apparent distress, other (TALKS NON-STOP AT LENGTH; FULL HEAVY MAKEUP AND PERFUME. ) Cardiovascular: regular rate, rhythm, no murmur Respiratory: normal breath sounds Gastrointestinal: normal bowel sounds, non tender, soft, no organomegaly; No tenderness Back: no CVA tenderness Extremities: no pedal edema Neurologic/Psychiatric: no motor/sensory deficits, alert, normal mood/affect Skin: normal color, warm/dry Progress/Results/Core Measures Suspected Sepsis Recent Fever Within 48 Hours: No Infection Criteria Present: None New/Unexplained Altered Menta: No Sepsis Screen: No Definite Risk SIRS Temperature:98.0 Pulse: 78 Respiratory Rate: 20 Blood Pressure 128 /98 Mean: 108 Results/Orders Lab Results Laboratory Tests Test 02/24/19 16:29 Range/Units Urine Color YELLOW Urine Clarity CLOUDY H Urine pH 6 5-9 Urine Specific [place] 1.020 1.016-1.022 Urine Protein 3+ H NEGATIVE Urine Glucose (UA) NEGATIVE NEGATIVE Urine Ketones NEGATIVE NEGATIVE Urine Nitrite POSITIVE H NEGATIVE Urine Bilirubin NEGATIVE NEGATIVE Urine Urobilinogen NORMAL NORMAL MG/DL Urine Leukocyte Esterase 3+ H NEGATIVE Urine RBC (Auto) 4+ H NEGATIVE Urine RBC 0-2 /HPF Urine WBC TNTC H /HPF Urine Squamous Epithelial Cells 2-5 /HPF Urine Crystals NONE /LPF Urine Bacteria LARGE H /HPF Urine Casts NONE /LPF Urine Mucus NEGATIVE /LPF Urine Culture Indicated YES My Orders Orders - ADAM LOPEZ DO Ua Culture If Indicated (02/24/19 16:25) Urine Culture (02/24/19 16:29) Ceftriaxone For Im Use (Rocephin For Im (02/24/19 17:00) Lidocaine 1% Inj 20 Ml (Xylocaine 1% Inj (02/24/19 17:00) Ondansetron Oral Dissolve Tab (Zofran (02/24/19 17:00) Vital Signs/I&O 02/24/19 16:17 Temp 98.0 Pulse 78 Resp 20 B/P (MAP) 128/98 (108) Pulse Ox 100 O2 Delivery Room Air Capillary Refill : Less Than 3 Seconds Blood Pressure Mean: 108 Departure Impression Primary Impression: Urinary tract infection Disposition: 01 HOME, SELF-CARE Condition: Stable Departure-Patient Inst. Referrals: CYNTHIA ALATORRE MD (PCP/Family) Primary Care Physician ROS IVEY MD Patient Instructions: Urinary Tract Infection, Adult (DC) Add. Discharge Instructions: STOP BACTRIM LOTS OF CLEAR LIQUIDS TYLENOL AND MOTRIN NEEDED FOR PAIN FOLLOW UP WITH DR. ALATORRE OR DR. IVEY IN 2-3 DAYS FOR FURTHER CARE All discharge instructions reviewed with patient and/or family. Voiced understanding. Scripts Nitrofurantoin Monohyd/M-Cryst (Macrobid 100 mg Capsule) 100 Mg Capsule 100 MG PO BID, #20 CAP Prov: ADAM LOPEZ DO 02/24/19 Ondansetron (Ondansetron Odt) 4 Mg Tab.rapdis 4 MG PO Q4H for Nausea/Vomiting, #10 TAB Prov: ADAM LOPEZ DO 02/24/19 Phenazopyridine HCl (Pyridium) 200 Mg Tablet 1 TAB PO TID for BLADDER DISCOMFORT, #15 TAB Prov: ADAM LOPEZ DO 02/24/19 Levofloxacin (Levaquin) 500 Mg Tablet 500 MG PO DAILY for INFECTION, #10 TAB Prov: ADAM LOPEZ DO 02/24/19 ADAM LOPEZ DO Feb 24, 2019 16:43
[2019-02-24 16:48] LABS: BACTERIA,URINE LARGE /HPF; RBC,URINE 0-2 /HPF; WBC,URINE TNTC /HPF
--- NOTE | 2019-02-24 16:53 | NUR ---
DR LOPEZ IN W/ PT
[2019-02-24] MEDS ORDERED: ONDANSETRON 4 MG (ZOFRAN) ORAL DISSOLVE TAB ONE (16:55)
[2019-02-24] MEDS ORDERED: LIDOCAINE 1% INJ 20 ML 20 ML VIAL INJ ONE (17:00)
[2019-02-24] MEDS ORDERED: cefTRIAXone 1,000 MG/2.86 ml vial (IM ONLY) IM SCH (17:00)
[2019-02-24] MEDS ORDERED: ONDANSETRON 4 MG (ZOFRAN) ORAL DISSOLVE TAB PO ONE (17:00)
[2019-02-24] MEDS ORDERED: PHEN-640 PO (17:04)
[2019-02-24] MEDS ORDERED: NITR-65 PO (17:04)
[2019-02-24] MEDS ORDERED: LEVO500T2 PO (17:04)
[2019-02-24] MEDS ORDERED: ONDA4TAB11 PO (17:04)
[2019-02-24 17:19] VITALS: BP 126/92
== END 2019-02-24 17:19 | disposition home or self-care (01) ==
LOC: EDUNIT# 16:13 → ER 16:14
DX: N39.0 Urinary tract infection, site not specified (principal); I10 Essential (primary) hypertension; G43.909 Migraine, unspecified, not intractable, without status migrainosus; K21.0 Gastro-esophageal reflux disease with esophagitis; H54.7 Unspecified visual loss; Z96.652 Presence of left artificial knee joint; Z88.5 Allergy status to narcotic agent; Z79.51 Long term (current) use of inhaled steroids; Z90.710 Acquired absence of both cervix and uterus; Z87.440 Personal history of urinary (tract) infections; Z82.49 Family history of ischemic heart disease and other diseases of the circulatory system
CPT/HCPCS: 81000; 87077; 87088; 87186; 96372; 99284

== ENCOUNTER → 2019-02-26 | Outpatient (CLI) | payer MEDICARE, MEDICAID ==
[~2019-02-26] MED LIST changes: +LEVO500T2 PO; +NITR-65 PO; +ONDA4TAB11 PO; +PHEN-640 PO
--- NOTE | 2019-02-26 16:39 | Diagnostic Imaging Report ---
INDICATION: Postmenopausal female. COMPARISON: None. FINDINGS: AP Spine L1-L4: History of fusion. LT Hip Neck: [BMD (g/cm2): 0.628] [T-Score: -3.0] [Z-Score: -1.6] LT Hip Total: [BMD (g/cm2): 0.662] [T-Score: -2.7] [Z-Score: -1.6] [BMD Previous: N/A] [BMD % Change: N/A] RT Hip Neck: History of right hip pinning. DEXA scan of the left forearm was performed as well, with the distal third of the radius measuring 0.483 g/cm2, with a T-score of -4.6 and a Z-score of -2.3. *Indicates significant change from prior examination based on 95% confidence level. World Health Organization criteria for BMD interpretation classify patients as Normal (T-score at or above -1.0), Osteopenic (T-score between -1.0 and -2.5) or Osteoporotic (T-score at or below -2.5). LIMITATIONS AND MODIFICATION: The lumbar spine and right hip are excluded for reasons given above. FRACTURE RISK (FRAX SCORE): Osteoporosis. IMPRESSION: 1. Osteoporosis. 2. Baseline examination. 3. See below National Osteoporosis Foundation guidelines on when to potentially initiate pharmacologic therapy. Based on the National Osteoporosis Foundation Guidelines, pharmacologic treatment should be initiated in any of the following, unless clinical conditions suggest otherwise: * Any patient with prior fragility fracture of the hip or vertebrae. A spine fracture indicates 5X risk for subsequent spine fracture and 2X risk for subsequent hip fracture. * Osteoporosis (T-score <-2.5). * Postmenopausal women and men age 50 and older with low bone mass/osteopenia (T-score between -1.0 and -2.5) by DXA and 10-year major osteoporotic fracture greater than 20% or a 10-year probability of hip fracture greater than 3%. These fracture risks are supplied above in the FRAX score, if applicable. * Clinician judgment and/or patient preferences may indicate treatment for people with 10-year fracture probabilities above or below these levels. Dictated by: Dictated on workstation # [id number]
== END ==
LOC: RAD 08:26
PROVIDERS: ATTEND Family Medicine
DX: M81.0 Age-related osteoporosis without current pathological fracture (principal); Z78.0 Asymptomatic menopausal state
CPT/HCPCS: 77080

== ENCOUNTER 2019-03-22 12:30 | Outpatient (CLI) | payer MEDICARE, MEDICAID ==
[~2019-03-22] VITALS: Ht 162.6 cm; Wt 90.7 kg
== END 2019-03-22 13:17 | disposition home or self-care (01) ==
LOC: PREOP 12:30
PROVIDERS: ATTEND Surgery
DX: Z01.818 Encounter for other preprocedural examination (principal)

== ENCOUNTER 2019-03-26 13:33 | Day surgery (SDC) | payer MEDICARE, MEDICAID ==
[~2019-03-26] VITALS: Ht 162.6 cm; Wt 90.7 kg
[2019-03-26] VITALS (7 sets, daily range): BP systolic 60–183; BP diastolic 78–89
[2019-03-26] MEDS ORDERED: LACTATED RINGERS 1,000 ML IV STA (13:35)
[2019-03-26] MEDS ORDERED: LACTATED RINGERS 1,000 ML IV ONE (13:36)
[2019-03-26] MEDS ORDERED: HURRICAINE EXT TUBE (BENZOCAINE) ONE (13:56)
[2019-03-26] MEDS ORDERED: PROPOFOL INJECTION 50 ML IV ONE ×3 (14:04→15:14)
[2019-03-26] MEDS ORDERED: ceFAZolin 2 GM/50 ML NS 50 ML ONE (14:18)
[2019-03-26] MEDS ORDERED: FAMOTIDINE 20MG/2ML IV (PEPCID) ONE (14:19)
--- NOTE | 2019-03-26 14:36 | Progress Note-Pre Operative ---
Pre-Operative Progress Note H&P Reviewed The H&P was reviewed, patient examined and no changes noted. Date Seen by Provider: Mar 26, 2019 Time Seen by Provider: 14:36 Date H&P Reviewed: Mar 26, 2019 Time H&P Reviewed: 14:36 Pre-Operative Diagnosis: +shay ventura BRETT D DO Mar 26, 2019 14:36
[2019-03-26] MEDS ORDERED: ceFAZolin 2 GM/50 ML NS 50 ML IV ONE (14:45)
[2019-03-26] MEDS ORDERED: FAMOTIDINE 20MG/2ML IV (PEPCID) IVP ONE (14:45)
[2019-03-26] MEDS ORDERED: HURRICAINE EXT TUBE (BENZOCAINE) XX ONE (15:00)
--- NOTE | 2019-03-26 16:36 | Progress Note-Post Operative ---
Post-Operative Progess Note Surgeon (s)/Debridging Machine Operator (s) Surgeon EZRA CRUZ DO Debridging Machine Operator: na Pre-Operative Diagnosis +cologuard, gerd Post-Operative Diagnosis gastritis, hiatal hernia, colon polyps Procedure & Operative Findings Date of Procedure 03/26/19 Procedure Performed/Findings egd c biopsies, colonoscopy c snare polypectomy x 6, hot bx polypectomy x 9 Anesthesia Type per motion picture film examiner Estimated Blood Loss Estimated blood loss (mL): scant Specimens/Packing Specimens Removed antrum, body stomach, colon polyps EZRA CRUZ DO Mar 26, 2019 16:36
--- NOTE | 2019-03-26 16:40 | Discharge Inst-Simple/Standard ---
Discharge Inst-Standard Patient Instructions/Follow Up Plan of Care/Instructions/FU: 2 weeks Mark Activity as Tolerated: Yes Discharge Diet: Regular Diet EZRA CRUZ DO Mar 26, 2019 16:40
--- NOTE | 2019-03-26 21:46 | OPERATIVE REPORT ---
DATE OF SERVICE: 03/26/2019 PREOPERATIVE DIAGNOSIS: Positive Cologuard gastroesophageal reflux disease. POSTOPERATIVE DIAGNOSES: Gastritis, hiatal hernia, colon polyps. PROCEDURE: EGD with biopsies, colonoscopy with snare polypectomy x6 and snare polypectomy x9. SURGEON: Ezra Flores DO ANESTHESIA: Per SECOND OPERATOR. ESTIMATED BLOOD LOSS: Scant. COMPLICATIONS: None. INDICATIONS: The patient is a 73-year-old female with positive Cologuard test and reflux symptoms. She understands risks and benefits of procedure and wished to proceed with procedure. Consent was signed in the chart. DESCRIPTION OF PROCEDURE: The patient was taken to the endoscopy suite, placed in left lateral recumbent position. Timeout was performed. Scope was inserted into the mouth, down the esophagus, stomach and into the duodenum without difficulty. There were no polyps, mass or ulcerations within the duodenum. Scope was slowly retracted back into the stomach where it was further insufflated. Gastritis appearance. Biopsy of the antrum and body were obtained. Scope was retroflexed noting a hiatal hernia, no other pathology. Scope was returned to its normal position, slowly withdrawn until the distal esophagus, which had normal appearance. Scope was then slowly retracted back until completely removed, noting no other pathology. Digital rectal exam was performed. There were no palpable polyps, masses or ulcerations. Scope was inserted in the rectum, advanced all the way to the cecum with minimal difficulty. Prep was adequate with irrigation and suction. There were no polyps, mass or ulcerations within the cecum. In the ascending colon, there were 6 polyps, which were snared, then obtained for specimen. Scope was then continuously retracted back to the hepatic flexure, which hot biopsy polypectomy was performed. Scope was then continued slowly retracted back through the transverse colon, which four more polyps were present, which hot biopsy polypectomy was performed. Scope was then continued to be slowly retracted back through the descending colon, which had one small polyp, which hot biopsy polypectomy was performed. There were no other polyps, masses or ulcerations through the rest of the descending colon into the sigmoid colon. There was another polyp, which hot biopsy polypectomy was performed. Scope was continuously retracted back into the rectum where it was also retroflexed noting no other pathology. Scope was returned to its normal position, slowly withdrawn until completely removed. The patient tolerated procedure well without any complications. She was taken to recovery room in stable condition. RECOMMENDATIONS: The patient will need repeat colonoscopy in one year. Any issues before that will be seen at that time. The patient will follow up in 2 weeks to discuss pathology results. She is to continue on current medications. Job ID: [id number] DocumentID: [id number] Dictated Date: 03/26/2019 16:44:15 Seam Taper Machine Date: 03/26/2019 21:46:08 Dictated By: EZRA FOLRES DO
[2019-03-27] MEDS ORDERED: proPOfol 200 MG/20 ML (DIPRIVAN) VIAL IV ONE (06:25)
[2019-03-27] MEDS ORDERED: fentaNYL INJECTION 100 MCG/2 ML AMP ONE (06:25)
[2019-03-27] MEDS ORDERED: ROCURONIUM 10 MG/ML 5 ML SYRINGE IV ONE (06:26)
[2019-03-27] MEDS ORDERED: LIDOCAINE PF 2% 5 ML (XYLOCAINE) VIAL ONE (06:26)
[2019-03-27] MEDS ORDERED: MIDAZOLAM 2 MG/2 ML (VERSED) VIAL ONE (06:26)
[2019-03-27] MEDS ORDERED: SEVOFLURANE (ULTANE) 15 ML INHAL SOLN ONE (06:39)
== END 2019-03-26 17:05 | disposition home or self-care (01) ==
LOC: ENDO 13:33
PROVIDERS: ATTEND Surgery
DX: D12.2 Benign neoplasm of ascending colon (principal); D12.3 Benign neoplasm of transverse colon; D12.4 Benign neoplasm of descending colon; D12.5 Benign neoplasm of sigmoid colon; K44.9 Diaphragmatic hernia without obstruction or gangrene; M19.90 Unspecified osteoarthritis, unspecified site; G43.909 Migraine, unspecified, not intractable, without status migrainosus; I10 Essential (primary) hypertension; E66.9 Obesity, unspecified; Z68.34 Body mass index [BMI] 34.0-34.9, adult; G89.29 Other chronic pain; M54.9 Dorsalgia, unspecified; M79.18 Myalgia, other site; G47.33 Obstructive sleep apnea (adult) (pediatric); Z88.5 Allergy status to narcotic agent; Z88.8 Allergy status to other drugs, medicaments and biological substances; Z79.51 Long term (current) use of inhaled steroids; Z96.652 Presence of left artificial knee joint; Z82.49 Family history of ischemic heart disease and other diseases of the circulatory system; Z82.3 Family history of stroke; Z80.0 Family history of malignant neoplasm of digestive organs; Z90.710 Acquired absence of both cervix and uterus; Z87.891 Personal history of nicotine dependence

== ENCOUNTER 2019-06-11 14:28 | Outpatient (RCR) | payer MEDICARE, MEDICAID ==
[2019-05-09 14:25] VITALS: BP 151/85
[~2019-06-11] VITALS: Ht 162.6 cm; Wt 90.7 kg
[~2019-06-11 14:28] MED LIST changes: +HEParin (CENTRAL IV FLUSH) 500 UNIT/5 ML SYR IV ONE; +HEParin (CENTRAL IV FLUSH) 500 UNIT/5 ML SYR ONE
[2019-06-11] MEDS ORDERED: HEParin (CENTRAL IV FLUSH) 500 UNIT/5 ML SYR ONE (14:36)
[2019-06-11 14:50] VITALS: BP 136/70
[2019-06-11] MEDS ORDERED: HEParin (CENTRAL IV FLUSH) 500 UNIT/5 ML SYR IV SCH (15:00)
[2019-06-11] MEDS ORDERED: CATHETER FLUSH 10 ML SYR IV SCH (15:00)
== END 2019-08-07 | disposition home or self-care (01) ==
LOC: SDC 14:28
PROVIDERS: ATTEND Family Medicine
DX: Z95.9 Presence of cardiac and vascular implant and graft, unspecified (principal)
CPT/HCPCS: 96523

== ENCOUNTER 2019-08-08 16:05 | Emergency (ER) | payer MEDICARE, MEDICAID ==
[~2019-08-08] VITALS: Ht 160 cm; Wt 91.0 kg
[~2019-08-08 16:05] MED LIST changes: -HEParin (CENTRAL IV FLUSH) 500 UNIT/5 ML SYR IV ONE; -HEParin (CENTRAL IV FLUSH) 500 UNIT/5 ML SYR ONE
--- NOTE | 2019-08-08 16:11 | ED Chest Pain ---
General Chief Complaint: Chest Pain Stated Complaint: CHEST PAIN Source: patient Exam Limitations: no limitations History of Present Illness Date Seen by Provider: Aug 08, 2019 Time Seen by Provider: 16:11 Initial Comments 74-year-old female presents with substernal chest discomfort. Patient reports that she was sitting with her sister at the cancer office. She drank some coffee. When she got some substernal pressure and had to vomit. She reports she has severe GERD and thinks this might be part of the problem but wants to have it evaluated. She did not yet diaphoretic, no shortness of breath, no radiation of the pain. The pain has improved now. She still has some slight esophageal/substernal discomfort. She denies any cough, fever, chills or any other systemic complaints at this time Allergies and Home Medications Allergies Coded Allergies: hydromorphone (Verified Allergy, Mild, "POISONS HER SYSTEM", 03/22/19) morphine (Verified Allergy, Mild, "POISONS HER SYSTEM", 03/22/19) Home Medications Fluticasone Propionate 16 Gm Bowie.susp, 2 SPRAYS NS DAILY, (Reported) Hydrocodone Bit/Acetaminophen 1 Tab Tab, 1-2 TAB PO Q4H PRN for PAIN-MODERATE TO SEVERE, (Reported) Pantoprazole Sodium 40 Mg Tablet.dr, 40 MG PO DAILY, (Reported) Sumatriptan Succinate 25 Mg Tablet, 25 MG PO UD, (Reported) 1 TAB AT ONSET OF FELIPE, MAY REPEAT X1 IN 2 HOURS Tolterodine Tartrate 2 Mg Cap, 2 MG PO DAILY PRN for BLADDER SPASM, (Reported) Patient Home Medication List Home Medication List Reviewed: Yes Review of Systems Review of Systems Constitutional: No chills, No fever Respiratory: Denies Cough Cardiovascular: See HPI, Chest Pain Gastrointestinal: See HPI, Vomiting Genitourinary: No Symptoms Reported, See HPI Skin: no symptoms reported Psychiatric/Neurological: No Symptoms Reported Endocrine: No Symptoms Reported Past Rjejrob-Woxdfc-Grekuw Hx Past Med/Social Hx: Reviewed Nursing Past Med/Soc Hx Patient Social History 2nd Hand Smoke Exposure: No Recent Foreign Travel: No Contact w/Someone Who Travel: No Recent Hopitalizations: No Immunizations Up To Date Tetanus Booster (TDap): More than 5yrs PED Vaccines UTD: No Date of Pneumonia Vaccine: May 08, 2017 Date of Influenza Vaccine: May 09, 2017 Seasonal Allergies Seasonal Allergies: Yes Past Medical History Surgeries: Yes Abdominal, Eye Surgery, 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, Joint Replacement, Orthopedic, Transurethral Resection Respiratory: No Currently Using CPAP: No Currently Using BIPAP: No Cardiac: Yes Hypertension Neurological: Yes Headaches /Migraines Reproductive Disorders: No Female Reproductive Disorders: 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, 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 Sexually Transmitted Disease: No HIV/AIDS: No Genitourinary: Yes UTI-Chronic Gastrointestinal: Yes (CHRONIC CONSTIPATION; REFLUX ; HERNIA REPAIR) Gastroesophageal Reflux, Esophagitis Musculoskeletal: Yes Arthritis, Chronic Back Pain, Fractures Endocrine: No HEENT: Yes (S/P CATARACT SURGERY) Cataract Loss of Vision: Bilateral Hearing Impairment: Denies Cancer: No Psychosocial: No Integumentary: No Blood Disorders: No Adverse Reaction/Blood Tranf: No (N/A) Family Medical History Cancer 03 FATHER Cataract 03 MOTHER Chest pain 03 MOTHER Family history: Arthritis 03 MOTHER Family history: Asthma 09 BROTHER Family history: Cardiovascular disease 03 MOTHER Family history: Hypertension 03 MOTHER Family history: Osteoporosis 03 MOTHER History of - respiratory disease 09 BROTHER Hypercholesterolemia 03 MOTHER Visual impairment 03 MOTHER No Family History of: Abdominal aortic aneurysm [place]'s disease Alcoholism Aphasia Cancer of colon Congenital heart disease Congestive heart failure Cystic fibrosis Dementia Dysphagia Family history: Allergy Family history: Alzheimer's disease Family history: Breast disease Family history: Coronary thrombosis Family history: Diabetes mellitus Family history: Gastrointestinal disease Family history: Glaucoma Family history: Thyroid disorder Headache Hearing loss Heart disease Hereditary disease History of - anemia History of - disorder History of drug abuse Human immunodeficiency virus (HIV) seropositivity Infertile Kidney disease Malignant neoplasm of lung Myocardial infarction Parkinson's disease Prostate cancer Psychotic disorder Seizure disorder Stroke Tuberculosis Physical Exam Vital Signs Vital Signs - First Documented 08/08/19 16:05 Temp 35.1 Pulse 86 Resp 18 B/P (MAP) 184/116 (138) Pulse Ox 97 O2 Delivery Room Air Capillary Refill : Height, Weight, BMI Height: 5'4.00" Weight: 200lbs. 0.0oz. [id number]; 34.3 BMI Method:Stated General Appearance: No Apparent Distress, WD/WN HEENT: PERRL/EOMI Neck: Non Tender, Supple Respiratory: Chest Non Tender, Lungs Clear, Normal Breath Sounds Cardiovascular: Regular Rate, Rhythm, No Edema, Normal Peripheral Pulses Gastrointestinal: Non Tender, Soft Neurologic/Psychiatric: Alert, Oriented x3, No Motor/Sensory Deficits, Normal Mood/Affect Skin: Normal Color, Warm/Dry Progress/Results/Core Measures Results/Orders Lab Results Laboratory Tests Test 08/08/19 16:15 Range/Units White Blood Count 5.6 4.3-11.0 10^3/uL Red Blood Count 4.56 4.35-5.85 10^6/uL Hemoglobin 11.9 11.5-16.0 G/DL Hematocrit 38 35-52 % Mean Corpuscular Volume 83 80-99 FL Mean Corpuscular Hemoglobin 26 25-34 PG Mean Corpuscular Hemoglobin Concent 31 L 32-36 G/DL Red Cell Distribution Width 16.7 H 10.0-14.5 % Platelet Count 184 130-400 10^3/uL Mean Platelet Volume 10.4 7.4-10.4 FL Neutrophils (%) (Auto) 57 42-75 % Lymphocytes (%) (Auto) 30 12-44 % Monocytes (%) (Auto) 11 0-12 % Eosinophils (%) (Auto) 2 0-10 % Basophils (%) (Auto) 1 0-10 % Neutrophils # (Auto) 3.2 1.8-7.8 X 10^3 Lymphocytes # (Auto) 1.7 1.0-4.0 X 10^3 Monocytes # (Auto) 0.6 0.0-1.0 X 10^3 Eosinophils # (Auto) 0.1 0.0-0.3 10^3/uL Basophils # (Auto) 0.0 0.0-0.1 10^3/uL Sodium Level 140 135-145 MMOL/L Potassium Level 3.8 3.6-5.0 MMOL/L Chloride Level 106 98-107 MMOL/L Carbon Dioxide Level 24 21-32 MMOL/L Anion Gap 10 5-14 MMOL/L Blood Urea Nitrogen 16 7-18 MG/DL Creatinine 0.78 0.60-1.30 MG/DL Estimat Glomerular Filtration Rate > 60 BUN/Creatinine Ratio 21 Glucose Level 99 70-105 MG/DL Calcium Level 9.1 8.5-10.1 MG/DL Corrected Calcium 9.3 8.5-10.1 MG/DL Magnesium Level 1.9 1.6-2.4 MG/DL Total Bilirubin 0.4 0.1-1.0 MG/DL Aspartate Amino Transf (AST/SGOT) 22 5-34 U/L Alanine Aminotransferase (ALT/SGPT) 17 0-55 U/L Alkaline Phosphatase 120 40-136 U/L Myoglobin 38.0 10.0-92.0 NG/ML Troponin I < 0.028 <0.028 NG/ML Total Protein 6.5 6.4-8.2 GM/DL Albumin 3.8 3.2-4.5 GM/DL My Orders Orders - SEALS,PILLO L DO Cbc With Automated Diff (08/08/19 16:11) Magnesium (08/08/19 16:11) Chest 1 View, Ap/Pa Only (08/08/19 16:11) Ekg Tracing (08/08/19 16:11) Comprehensive Metabolic Panel (08/08/19 16:11) Myoglobin Serum (08/08/19 16:11) Protime With Inr (08/08/19 16:11) Partial Thromboplastin Time (08/08/19 16:11) Monitor-Rhythm Ecg Trace Only (08/08/19 16:11) Lipid Panel (08/09/19 06:00) Ed Iv/Invasive Line Start (08/08/19 16:11) Troponin I (08/08/19 16:11) Aspirin Chewable Tablet (Baby Aspirin Ch (08/08/19 16:15) Pantoprazole Injection (Protonix Injecti (08/08/19 16:15) Lidocaine 2% Viscous 15 Ml (Xylocaine Vi (08/08/19 17:45) Mylanta Po (08/08/19 17:45) Medications Given in ED Current Medications Medications Dose Ordered Sig/Reed Route Start Time Stop Time Status Last Admin Dose Admin Aspirin 324 mg ONCE ONCE PO 08/08/19 16:15 08/08/19 16:16 DC 08/08/19 16:42 324 MG Pantoprazole 40 mg ONCE ONCE IV 08/08/19 16:15 08/08/19 16:16 DC 08/08/19 16:42 40 MG Vital Signs/I&O 08/08/19 08/08/19 16:05 16:10 Temp 35.1 Pulse 86 Resp 18 B/P (MAP) 184/116 (138) Pulse Ox 97 O2 Delivery Room Air Room Air Progress Progress Note : Time: 17:35 Progress Note Patient feels that the pain is likely from her reflux. I did review her negative initial troponin, EKG with no acute changes. Patient states that she with oxygen still little bit more for her reflux like a GI cocktail and that she would like to be discharged home I did offer her a repeat troponin along with repeat EKG. She however feel that this is unnecessary. We will do that she requested give her a GI cocktail she will be discharged home in stable condition. I recommend that she return the ER if symptoms worsen or follow-up with her primary care provider in the next couple days for recheck of symptoms and continuation of care Initial ECG Impression Date: Aug 08, 2019 Initial ECG Impression Time: 16:09 Initial ECG Rate: 87 Initial ECG Rhythm: S.Tach Initial ECG Impression: Nonspecific Changes Departure Impression Primary Impression: Gastroesophageal reflux disease Qualified Codes: K21.9 - Gastro-esophageal reflux disease without esophagitis Disposition: 01 HOME, SELF-CARE Condition: Stable Departure-Patient Inst. Referrals: CYNTHIA ALATORRE MD (PCP/Family) Primary Care Physician Patient Instructions: Acid Reflux (Gastroesophageal Reflux Disease), Adult (DC), Chest Pain (DC) Add. Discharge Instructions: Follow-up with your primary care provider in 2-3 days for continuation of care Emergency department focuses on treating and ruling out life-threatening diseases. Whenever possible, a diagnosis is given. However, most patients are given an impression based on their history, physical exam, and workup during your brief time in the ER. Information about probable diagnosis and other educational material has been provided. Please take the time to read and understand this information. It is very important that you follow up with a physician as discussed during the visit today. Failure to adhere to your follow-up instructions may lead to severe disability, injury, or so please make sure to keep your appointments or obtain one as requested. Please keep in mind the emergency department is not designed to your primary care or "family doctor" and nonurgent issues are best evaluated by an outpatient physician All discharge instructions reviewed with patient and/or family. Voiced understanding. PILLO SEALS DO Aug 08, 2019 16:11
[2019-08-08] MEDS ORDERED: PANTOPRAZOLE 40 MG (PROTONIX) VIAL IV ONE (16:15)
[2019-08-08] MEDS ORDERED: ASPIRIN 81 MG CHEW (CHILDREN'S ASA) PO ONE (16:15)
[2019-08-08 16:29] LABS: BASOPHILS % (AUTO) 1 % (0-10); EOSINOPHILS # (AUTO) 0.1 10^3/uL (0.0-0.3); EOSINOPHILS % (AUTO) 2 % (0-10); HEMATOCRIT 38 % (35-52); HEMOGLOBIN 11.9 G/DL (11.5-16.0); LYMPHOCYTES # (AUTO) 1.7 X 10^3 (1.0-4.0); LYMPHOCYTES % (AUTO) 30 % (12-44); MEAN CORPUSCULAR HEMOGLOBIN 26 PG (25-34); MEAN CORPUSCULAR HGB CONC 31 G/DL (32-36); MEAN CORPUSCULAR VOLUME 83 FL (80-99); MEAN PLATELET VOLUME 10.4 FL (7.4-10.4); MONOCYTES # (AUTO) 0.6 X 10^3 (0.0-1.0); MONOCYTES % (AUTO) 11 % (0-12); NEUTROPHILS # (AUTO) 3.2 X 10^3 (1.8-7.8); NEUTROPHILS % (AUTO) 57 % (42-75); PLATELET COUNT 184 10^3/uL (130-400); RED CELL DISTRIBUTION WIDTH 16.7 % (10.0-14.5); WHITE BLOOD COUNT 5.6 10^3/uL (4.3-11.0)
[2019-08-08 16:49] LABS: ALANINE AMINOTRANSFERASE 17 U/L (0-55); ALBUMIN 3.8 GM/DL (3.2-4.5); ALKALINE PHOSPHATASE 120 U/L (40-136); BILIRUBIN,TOTAL 0.4 MG/DL (0.1-1.0); BUN/CREATININE RATIO 21; CALCIUM 9.1 MG/DL (8.5-10.1); CARBON DIOXIDE 24 MMOL/L (21-32); CHLORIDE 106 MMOL/L (98-107); CREATININE SERUM 0.78 MG/DL (0.60-1.30); GFR ESTIMATED > 60; GLUCOSE 99 MG/DL (70-105); MAGNESIUM 1.9 MG/DL (1.6-2.4); POTASSIUM 3.8 MMOL/L (3.6-5.0); SODIUM 140 MMOL/L (135-145); TOTAL PROTEIN 6.5 GM/DL (6.4-8.2)
--- NOTE | 2019-08-08 16:51 | Diagnostic Imaging Report ---
CLINICAL INDICATION: Patient with chest pain. EXAM: Portable chest x-ray, upright view. COMPARISONS: Chest x-ray dated 01/12/2018. FINDINGS: Lungs/pleura: Stable calcified granuloma in the periphery of the right mid lung field. Otherwise, lungs are clear. There is no pneumothorax. There is no pleural effusion. Mediastinum: Unremarkable. Pulmonary vasculature: Unremarkable. Heart: Unremarkable. Bones/extrathoracic soft tissue: Neurostimulator electrode seen overlying the mid thoracic region. There is left curvature of the thoracic spine. Electronic device seen overlying the abdominal region, which may be related to neurostimulator electrode device. There is interval placement of lumbar fusion hardware noted. IMPRESSION: There is no interval radiographic evidence of acute cardiopulmonary process. Dictated by: Dictated on workstation # [id number]
--- NOTE | 2019-08-08 17:30 | NUR ---
Pt is now reporting pt believes issue to be related to acid reflux. Pt does not want to wait and have second troponin drawn.
[2019-08-08 17:34] LABS: INR 1.1 (0.8-1.4); PROTHROMBIN TIME PATIENT 14.5 SEC (12.2-14.7)
[2019-08-08] MEDS ORDERED: ANTACID SUSP 30 ML UDC (MYLANTA) PO ONE (17:45)
[2019-08-08] MEDS ORDERED: LIDOCAINE 2% VISCOUS 15 ML UDC PO ONE (17:45)
[2019-08-08 17:55] VITALS: BP 169/83
== END 2019-08-08 17:55 | disposition home or self-care (01) ==
LOC: EDUNIT# 16:05 → ER 16:06
DX: K21.0 Gastro-esophageal reflux disease with esophagitis (principal); I10 Essential (primary) hypertension; G43.909 Migraine, unspecified, not intractable, without status migrainosus; Z88.5 Allergy status to narcotic agent; Z79.51 Long term (current) use of inhaled steroids; Z90.710 Acquired absence of both cervix and uterus; Z87.440 Personal history of urinary (tract) infections; Z82.49 Family history of ischemic heart disease and other diseases of the circulatory system
CPT/HCPCS: 36415; 71045; 80053; 83735; 83874; 84484; 85025; 85610; 85730; 93005; 93041; 96374

== ENCOUNTER 2019-09-19 14:11 | Outpatient (RCR) | payer MEDICARE, MEDICAID ==
[2019-08-08 13:19] VITALS: BP 158/98
[~2019-09-19 14:11] MED LIST changes: +HEParin (CENTRAL IV FLUSH) 500 UNIT/5 ML SYR ONE
[2019-09-19 14:24] VITALS: BP 149/88
[2019-09-19] MEDS ORDERED: CATHETER FLUSH 10 ML SYR IV PRN (14:30)
[2019-09-19] MEDS ORDERED: HEParin (CENTRAL IV FLUSH) 500 UNIT/5 ML SYR IV ONE (14:30)
== END 2019-11-06 | disposition home or self-care (01) ==
LOC: SDC 14:11
PROVIDERS: ATTEND Family Medicine
DX: Z45.2 Encounter for adjustment and management of vascular access device (principal); Z95.9 Presence of cardiac and vascular implant and graft, unspecified
CPT/HCPCS: 96523

== ENCOUNTER 2019-12-12 13:59 | Outpatient (RCR) | payer MEDICARE, MEDICAID ==
[2019-12-10 14:22] VITALS: BP 130/67
[~2019-12-12] VITALS: Ht 162.6 cm; Wt 91.0 kg
[2019-12-12] MEDS ORDERED: HEParin (CENTRAL IV FLUSH) 500 UNIT/5 ML SYR IV ONE (14:30)
== END 2020-03-12 | disposition home or self-care (01) ==
LOC: SDC 13:59
PROVIDERS: ATTEND Family Medicine
DX: Z45.2 Encounter for adjustment and management of vascular access device (principal)
CPT/HCPCS: 96523

== ENCOUNTER → 2020-01-27 | Outpatient (CLI) | payer MEDICARE, MEDICAID ==
[~2020-01-27] MED LIST changes: -HEParin (CENTRAL IV FLUSH) 500 UNIT/5 ML SYR ONE
== END ==
LOC: CARD 14:11
PROVIDERS: ATTEND Internal Medicine Interventional Cardiology
DX: I10 Essential (primary) hypertension (principal); G47.33 Obstructive sleep apnea (adult) (pediatric); E66.9 Obesity, unspecified; I73.9 Peripheral vascular disease, unspecified
CPT/HCPCS: 93306

== ENCOUNTER 2020-02-27 14:01 | Outpatient (RCR) | payer MEDICARE, MEDICAID ==
[~2020-02-27] VITALS: Ht 160 cm; Wt 91.0 kg
[~2020-02-27 14:01] MED LIST changes: -PANT40TA3 PO; +PANT40TA52 PO
[2020-02-27] MEDS ORDERED: HEParin (CENTRAL IV FLUSH) 500 UNIT/5 ML SYR ONE (14:22)
[2020-02-27 14:40] VITALS: BP 132/82
[2020-02-27] MEDS ORDERED: CATHETER FLUSH 10 ML SYR IV SCH (15:00)
[2020-02-27] MEDS ORDERED: HEParin (CENTRAL IV FLUSH) 500 UNIT/5 ML SYR IV ONE (15:00)
[2020-02-27] MEDS ORDERED: HEParin (CENTRAL IV FLUSH) 500 UNIT/5 ML SYR IV SCH (15:00)
[2020-04-07] MEDS ORDERED: LISI-552 PO (14:34)
[2020-04-07] MEDS ORDERED: TOLT4CAP13 PO (14:34)
[2020-04-07] MEDS ORDERED: NITR-68 PO (14:34)
== END 2020-05-27 | disposition home or self-care (01) ==
LOC: SDC 14:01
PROVIDERS: ATTEND Family Medicine
DX: Z45.2 Encounter for adjustment and management of vascular access device (principal)
CPT/HCPCS: 96523

== ENCOUNTER 2020-03-26 08:30 | Outpatient (RCR) | payer MEDICARE, MEDICAID ==
[~2020-03-26] VITALS: Ht 160 cm; Wt 89.0 kg
[~2020-03-26 08:30] MED LIST changes: +CATHETER FLUSH 10 ML SYR IV PRN
[2020-03-26] MEDS ORDERED: REGADENOSON 0.4 MG/5 ML SYR (LEXISCAN) IV ONE ×2 (08:54→09:00)
[2020-03-26 09:03] VITALS: BP 173/97
--- NOTE | 2020-03-28 16:18 | Cardiology Stress Test Report ---
Stress Test Report Type of NM Stress Test: Test Type: LEXISCAN 0.4MG/5ML Date of Procedure/Referring: Date of Procedure: Mar 26, 2020 PCP Chen Gann MD Admitting Physician Emily Pugh MD Indications: Shortness of breath Baseline Heart Rate: 76 Baseline Blood Pressure: Blood Pressure Systolic: 173 Blood Pressure Diastolic: 97 Baseline EKG: Baseline EKG: sinus rhythm Summary & Conclusion: Summary: The patient was brought to the stress lab after informed consent was taken. Stress test was performed according to the Lexiscan protocol. 0.4 mg of IV Lexiscan was given. Low-grade exercise was performed. Baseline EKG showed sinus rhythm at 76 bpm, blood pressure 173/97 mmHg. Maximum heart rate of 80 bpm and blood pressure 164/98 mmHg. Patient did not have any chest pain, arrhythmias or ST segment changes during the stress test. 10.0 mCi of Myoview were given for rest imaging and 32.4 mCi of Myoview given for stress imaging. Transient ischemic dilatation score 1.16, EF 76 percent. Normal wall motion. Moderate apical reversible defect. Conclusion: Pharmacological stress test was negative for ischemia. Normal LV function with no wall motion abnormalities. Moderate apical reversible defect, possible apical ischemia. Clinical correlation is recommended. Chen GANN MD Mar 28, 2020 16:18
[2020-04-07] MEDS ORDERED: LISI-552 PO (14:34)
[2020-04-07] MEDS ORDERED: NITR-68 PO (14:34)
[2020-04-07] MEDS ORDERED: TOLT4CAP13 PO (14:34)
== END 2020-06-24 | disposition home or self-care (01) ==
LOC: CARD 08:30
PROVIDERS: ATTEND Internal Medicine Interventional Cardiology
DX: I11.9 Hypertensive heart disease without heart failure (principal); I73.9 Peripheral vascular disease, unspecified
CPT/HCPCS: 78452; 93017; A9502

== ENCOUNTER 2020-04-01 15:15 | Outpatient (RCR) | payer MEDICARE, MEDICAID ==
[~2020-04-01 15:15] MED LIST changes: -CATHETER FLUSH 10 ML SYR IV PRN
[2020-04-07] MEDS ORDERED: LISI-552 PO (14:34)
[2020-04-07] MEDS ORDERED: TOLT4CAP13 PO (14:34)
[2020-04-07] MEDS ORDERED: NITR-68 PO (14:34)
== END 2020-06-30 ==
LOC: CARD 15:15
PROVIDERS: ATTEND Internal Medicine Interventional Cardiology
DX: I11.9 Hypertensive heart disease without heart failure (principal); I73.9 Peripheral vascular disease, unspecified

== ENCOUNTER 2020-04-10 05:35 | Outpatient (RCR) | payer MEDICARE, MEDICAID ==
[~2020-04-10] VITALS: Ht 160 cm; Wt 89.9 kg
[~2020-04-10 05:35] MED LIST changes: +LISI-552 PO; +TOLT4CAP13 PO
== END 2020-04-10 13:03 | disposition home or self-care (01) ==
LOC: PREOP 05:35
PROVIDERS: ATTEND Surgery
DX: Z01.818 Encounter for other preprocedural examination (principal); Z01.812 Encounter for preprocedural laboratory examination; Z12.11 Encounter for screening for malignant neoplasm of colon; K21.9 Gastro-esophageal reflux disease without esophagitis; Z20.828 Contact with and (suspected) exposure to other viral communicable diseases; Z86.010 Personal history of colon polyps
CPT/HCPCS: 87635

== ENCOUNTER 2020-04-14 07:25 | Day surgery (SDC) | payer MEDICARE, MEDICAID ==
[~2020-04-14] VITALS: Ht 160 cm; Wt 89.9 kg
[2020-04-14] MEDS ORDERED: LACTATED RINGERS 1,000 ML IV ONE (07:29)
[2020-04-14] MEDS ORDERED: LACTATED RINGERS 1,000 ML IV STA (07:35)
[2020-04-14] MEDS ORDERED: MIDAZOLAM 2 MG/2 ML (VERSED) VIAL ONE (07:37)
[2020-04-14] MEDS ORDERED: ceFAZolin 2 GM IV Premixed 50 ML ONE (07:37)
[2020-04-14] MEDS ORDERED: PROPOFOL INJECTION 50 ML IV ONE (07:38)
[2020-04-14] MEDS ORDERED: ceFAZolin 2 GM IV Premixed 50 ML IV ONE (07:45)
[2020-04-14] MEDS ORDERED: HURRICAINE EXT TUBE (BENZOCAINE) XX PRN (07:45)
[2020-04-14 09:20] VITALS: BP 179/70
[2020-04-14 09:30] VITALS: BP 147/70
--- NOTE | 2020-04-14 09:30 | Progress Note-Post Operative ---
Post-Operative Progess Note Surgeon (s)/Bus Driver (s) Surgeon EZRA CRUZ DO Bus Driver: na Pre-Operative Diagnosis gerd, hx polyps Post-Operative Diagnosis transverse colon polyp, hiatal hernia, begnign appearing gastric polyp Procedure & Operative Findings Date of Procedure 04/14/20 Procedure Performed/Findings egd c biopsies colonoscopy c hot bx polypectomy Anesthesia Type per artist and repertoire manager Estimated Blood Loss Estimated blood loss (mL): na Specimens/Packing Specimens Removed antrum, ge, transverse colon polyp EZRA CRUZ DO Apr 14, 2020 09:30
--- NOTE | 2020-04-14 09:31 | Discharge Inst-Simple/Standard ---
Discharge Inst-Standard Patient Instructions/Follow Up Plan of Care/Instructions/FU: 2-3 weeks Mark Activity as Tolerated: Yes Discharge Diet: Regular Diet EZRA CRUZ DO Apr 14, 2020 09:31
[2020-04-14 10:00] VITALS: BP 150/78
[2020-04-14] MEDS ORDERED: HEParin (CENTRAL IV FLUSH) 500 UNIT/5 ML SYR IV ONE (10:00)
[2020-04-14 10:15] VITALS: BP 150/78
--- NOTE | 2020-04-14 11:25 | Anesthesia-General Post-Op ---
MAC Patient Condition Mental Status/LOC: Same as Preop Cardiovascular: Satisfactory Nausea/Vomiting: Absent Respiratory: Satisfactory Pain: Controlled Complications: Absent Post Op Complications Complications None Follow Up Care/Instructions Patient Instructions None needed. Anesthesiology Discharge Order Discharge Order Patient is doing well, no complaints, stable vital signs, no apparent adverse anesthesia problems. No complications reported per nursing. MEG FORREST CRNA Apr 14, 2020 11:25
--- NOTE | 2020-04-14 13:41 | OPERATIVE REPORT ---
DATE OF SERVICE: 04/14/2020 PREOPERATIVE DIAGNOSES: Gastroesophageal reflux disease, history of polyps. POSTOPERATIVE DIAGNOSES: Transverse colon polyp, hiatal hernia, benign appearing gastric polyp. PROCEDURE: EGD with biopsies, colonoscopy with hot biopsy polypectomy. SURGEON: Ezra Flores DO ANESTHESIA: Per CADDY. ESTIMATED BLOOD LOSS: None. COMPLICATIONS: None. INDICATIONS: The patient is a 75-year-old female with reflux symptoms and need for repeat colonoscopy due to history of colon polyps. She understands risks and benefits of procedure and wished to proceed with procedure. Consent was signed in the chart. DESCRIPTION OF PROCEDURE: The patient was taken to the endoscopy suite, placed in left lateral recumbent position. Timeout was performed. Scope was inserted in mouth, down the esophagus, stomach and into the duodenum without difficulty. There were no polyps, masses or ulcerations within the duodenum. Scope was slowly retracted back into the stomach where it was further insufflated. Slight erythematous changes of the antrum. No polyps, masses or ulcerations. Biopsy was obtained of the antrum. Scope was retroflexed noting a moderate sized hiatal hernia, benign appearing gastric polyp present as well. Scope was returned to its normal position, slowly withdrawn to distal esophagus. Biopsy of the GE junction was obtained. No polyps, masses or ulcerations. Scope was slowly retracted back until completely removed. Digital rectal exam was performed. There were no palpable polyps, masses or ulcerations. Scope was inserted in the rectum, advanced all the way to cecum. requiring lots of irrigation and suction. Once in the cecum, scope was then slowly retracted back. Visualization was slightly blurry through the colon. Lots of irrigation and suction was continued to be used. No polyps, masses or ulcerations within the cecum, ascending colon and transverse colon, a small polyp was found, which hot biopsy polypectomy was performed. Scope was then continuously retracted back. There were no polyps, masses or ulcerations in remainder of the transverse, descending and sigmoid colon. Some diverticulosis as well was present. Once in the rectum, scope was attempted to be retroflexed multiple times, but was unable to be retroflexed, so multiple insertions and retractions were made noting no other pathology. The patient tolerated procedure well without any complications. She was taken to recovery room in stable condition. RECOMMENDATIONS: The patient will follow up in the office in two to three weeks to discuss biopsy results. Does not need any further colonoscopies unless she has any changes in condition, which she should be reevaluated at that time. Job ID: [id number] DocumentID: [id number] Dictated Date: 04/14/2020 09:34:47 Fisher Diver Net Date: 04/14/2020 13:40:27 Dictated By: EZRA FLORES DO
== END 2020-04-14 10:15 | disposition home or self-care (01) ==
LOC: ENDO 07:25
PROVIDERS: ATTEND Surgery
DX: Z09 Encounter for follow-up examination after completed treatment for conditions other than malignant neoplasm (principal); D12.3 Benign neoplasm of transverse colon; K31.7 Polyp of stomach and duodenum; K29.50 Unspecified chronic gastritis without bleeding; K44.9 Diaphragmatic hernia without obstruction or gangrene; K57.30 Diverticulosis of large intestine without perforation or abscess without bleeding; Z88.5 Allergy status to narcotic agent; I10 Essential (primary) hypertension; Z79.899 Other long term (current) drug therapy; Z86.010 Personal history of colon polyps
CPT/HCPCS: 88305; 88342

== ENCOUNTER 2020-06-01 14:10 | Outpatient (RCR) | payer MEDICARE, MEDICAID ==
[2020-04-09 14:25] VITALS: BP 127/84
[~2020-06-01] VITALS: Ht 157.5 cm
[~2020-06-01 14:10] MED LIST changes: +HEParin (CENTRAL IV FLUSH) 500 UNIT/5 ML SYR IV ONE; +HEParin (CENTRAL IV FLUSH) 500 UNIT/5 ML SYR ONE
[2020-06-01] MEDS ORDERED: HEParin (CENTRAL IV FLUSH) 500 UNIT/5 ML SYR ONE (14:11)
[2020-06-01 14:25] VITALS: BP 107/82
[2020-06-01] MEDS ORDERED: CATHETER FLUSH 10 ML SYR IV PRN (14:30)
[2020-06-01] MEDS ORDERED: HEParin (CENTRAL IV FLUSH) 500 UNIT/5 ML SYR IV ONE (14:30)
== END 2020-07-08 | disposition home or self-care (01) ==
LOC: SDC 14:10
PROVIDERS: ATTEND Family Medicine
DX: Z45.2 Encounter for adjustment and management of vascular access device (principal)
CPT/HCPCS: 96523

== ENCOUNTER 2020-12-16 14:09 | Outpatient (RCR) | payer MEDICARE, MEDICAID ==
[2020-09-17 13:55] VITALS: BP 131/86
[~2020-12-16] VITALS: Ht 160 cm
[~2020-12-16 14:09] MED LIST changes: -LISI-552 PO; +LISI20TA26 PO
[2020-12-16] MEDS ORDERED: HEParin (CENTRAL IV FLUSH) 500 UNIT/5 ML SYR IV ONE (14:15)
[2020-12-16 14:25] VITALS: BP 117/73
== END 2020-12-16 14:25 | disposition home or self-care (01) ==
LOC: SDC 14:09
PROVIDERS: ATTEND Family Medicine
DX: Z45.2 Encounter for adjustment and management of vascular access device (principal)
CPT/HCPCS: 96523

== ENCOUNTER 2021-02-19 13:40 | Outpatient (RCR) | payer MEDICARE, MEDICAID ==
[2021-02-19 13:38] VITALS: BP 116/95
[~2021-02-19 13:40] MED LIST changes: -HEParin (CENTRAL IV FLUSH) 500 UNIT/5 ML SYR IV ONE; -HEParin (CENTRAL IV FLUSH) 500 UNIT/5 ML SYR ONE; -TOLT4CAP13 PO; +TOLT4CAP26 PO
[2021-02-19] MEDS ORDERED: HEParin (CENTRAL IV FLUSH) 500 UNIT/5 ML SYR ONE (13:48)
[2021-02-19] MEDS ORDERED: CATHETER FLUSH 10 ML SYR IV SCH (14:00)
[2021-02-19] MEDS ORDERED: HEParin (CENTRAL IV FLUSH) 500 UNIT/5 ML SYR IV SCH (14:00)
== END 2021-02-19 14:10 | disposition home or self-care (01) ==
LOC: SDC 13:40
PROVIDERS: ATTEND Family Medicine
DX: Z45.2 Encounter for adjustment and management of vascular access device (principal)
CPT/HCPCS: 96523

== ENCOUNTER 2021-03-30 09:00 | Day surgery (SDC) | payer MEDICARE, MEDICAID ==
[2021-03-30] VITALS (10 sets, daily range): BP systolic 107–149; BP diastolic 56–83
[~2021-03-30] VITALS: Ht 162 cm; Wt 86.0 kg
[2021-03-30 07:58] LABS: HEMATOCRIT 38 % (35-52); HEMOGLOBIN 11.7 g/dL (11.5-16.0); MEAN CORPUSCULAR HEMOGLOBIN 26 pg (25-34); MEAN CORPUSCULAR HGB CONC 31 g/dL (32-36); MEAN CORPUSCULAR VOLUME 84 fL (80-99); MEAN PLATELET VOLUME 9.3 fL (9.0-12.2); PLATELET COUNT 192 10^3/uL (130-400); WHITE BLOOD COUNT 7.4 10^3/uL (4.3-11.0)
[2021-03-30 08:13] LABS: PROTHROMBIN TIME PATIENT 13.9 SEC (12.2-14.7)
[2021-03-30 08:18] LABS: ALBUMIN 3.8 GM/DL (3.2-4.5); BILIRUBIN,TOTAL 0.6 MG/DL (0.1-1.0); CREATININE SERUM 0.82 MG/DL (0.60-1.30); POTASSIUM 4.2 MMOL/L (3.6-5.0); TOTAL PROTEIN 6.5 GM/DL (6.4-8.2)
[~2021-03-30 09:00] MED LIST changes: +ACET-2267 PO; +ASPI-1238 PO; +FLUT9.9S NS; +HEParin (CATH LAB) 2,000 ML IV ONE; +HYOS-6 PO; +LIDOCAINE 1% INJ 20 ML 20 ML VIAL ONE; +NS IV 1000 ML 1,000 ML IV SCH; +NS IV 1000 ML 1,000 ML ONE; +PHEN95TA PO; +RT-ALBUINH INH; +SUMA100T3 PO
[2021-03-30] MEDS ORDERED: MIDAZOLAM 5 MG/5 ML (VERSED) VIAL ONE (09:07)
[2021-03-30] MEDS ORDERED: fentaNYL INJ 100 MCG/2 ML AMP ONE ×2 (09:07→09:57)
[2021-03-30] MEDS ORDERED: ceFAZolin INJECTION 1,000 MG ONE (09:46)
[2021-03-30] MEDS ORDERED: ADENOSINE 90 MG/30 ML (ADENOSCAN) VIAL IV ONE (09:54)
[2021-03-30] MEDS ORDERED: HEParin 1000 UNIT/ML (10ML VIAL) FOR BOLUS ONE (09:57)
--- NOTE | 2021-03-30 10:14 | Cardiac Procedure Note-CS/ASA ---
Pre-Procedure Note Pre-Op Procedure Note H&P Reviewed The H&P was reviewed, patient examined and no changes noted. Date H&P Reviewed: Mar 30, 2021 Time H&P Reviewed: 09:45 Conscious Sedation Pre-Proced Time 09:45 ASA Score 3 For ASA 3 and 4: Consider anesthesia and medical clearance. Also, for patients with a history of failed moderate sedation consider anesthesia. Airway Lungs Heart ASA score ASA 1: a normal healthy patient ASA 2: a patient with a mild systemic disease (mid diabetes, controlled hypertension, obesity ASA 3: a patient with a severe systemic disease that limits activity (angina, COPD, prior Myocardial infarction) ASA 4: a patient with an incapacitating disease that is a constant threat to life (CHF, renal failure) ASA 5: a moribund patient not expected to survive 24 hrs. (ruptured aneurysm) ASA 6: a declared brain- patient whose organs are being harvested. For emergent operations, add the letter E after the classification Mallampati Classification Grade 2 Sedation Plan Analgesia, Amnesia, Plan communicated to team members, Discussed options with patient/fam, Discussed risks with patient/fam The patient is an appropriate candidate to undergo the planned procedure, sedation, and anesthesia. The patient immediately re-assessed prior to indication. WALE WILKINS MD FACP FAC CCDS Mar 30, 2021 10:14
--- NOTE | 2021-03-30 10:26 | Discharge Inst-Cardiology ---
Discharge Inst-Cardiac Discharge Medications Continued Medications: Acetaminophen (Tylenol Extra Strength) 500 Mg Tablet 1000 MG PO Q8H PRN for PAIN-MILD (1-4), TAB Albuterol Sulfate (Proair Hfa) 1 Puff Puff 2 PUFF INH Q6H PRN for SHORTNESS OF BREATH, EACH Aspirin (Aspirin EC) 81 Mg Tablet.dr 81 MG PO DAILY, TAB Fluticasone Propionate (Flonase Allergy Relief) 9.9 Ml [place].susp 1 SPRAY NS DAILY PRN for ALLERGIES, EACH Hydrocodone/Acetaminophen (Hydrocodone-Acetamin 5-325 mg) 1 Each Tablet 1 TAB PO Q8H PRN for PAIN-MODERATE (5-7), TAB Hyoscyamine Sulfate (Hyoscyamine Sulfate) 0.125 Mg Tab.rapdis 0.125-0.25 MG PO Q4H PRN for URINARY SPARMS, TAB TAKES 1-2 (0.125MG) TABLETS Lisinopril (Lisinopril) 20 Mg Tablet 20 MG PO DAILY, TAB Pantoprazole Sodium (Pantoprazole Sodium) 40 Mg Tablet.dr 40 MG PO BID, TAB LAST FILLED 01/19/2021 #60 30 DAY SUPPLY Phenazopyridine HCl (Phenazopyridine HCl) 95 Mg Tablet 190 MG PO DAILY PRN for URINARY PAIN, TAB TAKES 2 (95MG) TABLETS Sumatriptan Succinate (Sumatriptan Succinate) 100 Mg Tablet 100 MG PO UD PRN for HEADACHE, TAB 1 TABLET AT ONSET OF HEADACHE, MAY REPEAT x1 IN 2 HOURS Tolterodine Tartrate (Tolterodine Tartrate ER) 4 Mg Cap.er.24h 4 MG PO BID, WALE WARD MD FACP FAC CCDS Mar 30, 2021 10:26
--- NOTE | 2021-03-30 10:27 | Discharge Inst-Post CATH ---
Discharge Inst-CATH/EP Post Cardiac Cath/EP D/C Inst Follow Up/Plan F/u with Dr Sosa in 2 weeks ACTIVITY * Go Home directly and rest. * Limit activity of the leg (or wrist if it was used) for 7 days including aerobics, swimming, jogging, bicycling, etc. * Restrict stair-climbing for 7 days if possible, if not, climb up with your n on-cath leg, then bring together on the same step. * Avoid lifting, pushing, pulling or excessive movement of the affected ex tremity for 7 days. * Customary sexual activity may be resumed after 2 days-use caution not to use a position that strains or causes pain to the affected extremity. * No driving for 24 hours. * NO SMOKING. * Avoid straining for bowel movements for 7 days. * Gentle walking on level ground is allowed. * Returning to work will depend on the type of procedure and the results. Your doctor will discuss this with you. CALL YOUR DOCTOR FOR ANY OF THE FOLLOWING: *If bleeding from the puncture site occurs- Apply gentle pressure to site with clean cloth and call your doctor or EMS. * If a knot or lump forms under the skin, increases in size, or causes pain. * If bruising appears to be worsening or moving further down your leg instead of disappearing. * Temperature above 101 F. CARE OF YOUR GROIN INCISION; * Bruising or purple discoloration of the skin near the puncture site is common. * You may shower only, no bathtub bathing for 5 days. Be careful to avoid slipping as your leg may feel stiff. * If a closure device was used on your femoral artery, please see the attached guide regarding care of the device and your leg. * Leave dressing on FOR 24 hours. CARE OF YOUR WRIST INCISION; * Bruising or purple discoloration of the skin near the puncture site is common. * You may shower. * DO NOT submerge wrist. * Leave dressing on FOR 24 hours. WALE SOSA MD FACP FAC CCDS Mar 30, 2021 10:27
[2021-03-30] MEDS ORDERED: PATIENT MAY USE OWN MEDS, ALL PO SCH (10:30)
[2021-03-30] MEDS ORDERED: NS IV 1000 ML 1,000 ML IV SCH (10:30)
--- NOTE | 2021-03-30 10:51 | CARDIAC CATHETERIZATION ---
DATE OF SERVICE: 03/30/2021 CARDIAC CATHETERIZATION REPORT The patient is a 75-year-old lady with multiple coronary artery disease risk factors, who has been having shortness of breath. In myocardial perfusion imaging study carried out by Dr. Gann on 03/26/2020 was reported to have shown moderate apical ischemia. Given these data, cardiac catheterization was recommended. Informed consent was obtained. DESCRIPTION OF PROCEDURE: She was brought to the cardiac catheterization laboratory in a fasting state. Right groin was prepared and draped in the usual sterile fashion. Lidocaine 1% was used for local anesthesia. Modified Seldinger technique was used to advance a 5-Algerian sheath in right femoral artery, 5-Algerian JL4 catheter was used for left coronary angiography, 5-Algerian JR4 catheter for right coronary angiography, 5-Algerian pigtail catheter was used for left heart catheterization and left ventricular angiography. Angiography of the right femoral artery was carried out through the sheath. At the end of the procedure, Mynx was used to achieve hemostasis. Prior to the use of Mynx, we did proceed with a fractional flow reserve measurement in the proximal right coronary artery and it is described below. FRACTIONAL FLOW RESERVE IN THE RIGHT CORONARY ARTERY: The right coronary artery was exhibiting approximately 40% stenosis with some haziness. We proceeded with fractional flow reserve measurement. We exchanged the sheath over a wire for a 6-Algerian sheath. We gave 4000 units of intravenous heparin. We used a 6-Algerian JR4 guide catheter with side holes to engage the right coronary artery and advanced a wire across the lesion and the tip was placed in the distal vessel. The catheter was flushed with saline and disengaged from the right coronary ostium. A 140 mcg per kilogram per minute of adenosine was given for 2-1/2 minutes. Fractional flow reserve was 0.95, indicating hemodynamic nonsignificance of the proximal right coronary artery lesion. The patient tolerated the procedure well. HEMODYNAMICS: Left ventricular end-diastolic pressure following coronary angiography was 11 mmHg. There is no significant pressure gradient on pullback across the aortic valve. CORONARY ANGIOGRAPHY: Left main coronary artery, left anterior descending artery, left circumflex artery exhibits mild plaques. Right coronary artery is dominant and had approximately 40% proximal stenosis and fractional flow reserve across that lesion is 0.95, indicating hemodynamic nonsignificance. LEFT VENTRICULAR ANGIOGRAPHY: Left ventricular angiography was carried out in the right anterior oblique projection. Global left ventricular systolic function is normal. No regional wall motion abnormality is seen in this view. Left ventricular ejection fraction is approximately 60%. CONCLUSIONS: 1. Mild coronary artery disease without evidence of any hemodynamic significance. 2. Normal global left ventricular systolic function with ejection fraction approximately 40%. 3. Left ventricular end-diastolic pressure is 11 mmHg. DISCUSSION AND RECOMMENDATIONS: Based on results of the study, it appears appropriate to continue a conservative approach. Risk factor modification has been reviewed. Outpatient followup is advised. Job ID: [id number] DocumentID: [id number] Dictated Date: 03/30/2021 10:21:21 Ibm Bpm Architect Date: 03/30/2021 10:51:04 Dictated By: WALE WILKINS MD, MA, FACP, FACC, MTDD
== END 2021-03-30 14:15 | disposition home or self-care (01) ==
LOC: CATH 09:00 → SDC 10:30 → CATH 14:15
PROVIDERS: ATTEND Internal Medicine Cardiovascular Disease
DX: I25.10 Atherosclerotic heart disease of native coronary artery without angina pectoris (principal); Z88.5 Allergy status to narcotic agent; Z79.899 Other long term (current) drug therapy; Z79.82 Long term (current) use of aspirin; E66.9 Obesity, unspecified; G47.33 Obstructive sleep apnea (adult) (pediatric); I10 Essential (primary) hypertension; M54.9 Dorsalgia, unspecified; G89.29 Other chronic pain; Z96.652 Presence of left artificial knee joint; Z87.891 Personal history of nicotine dependence; Z79.891 Long term (current) use of opiate analgesic; Z11.2 Encounter for screening for other bacterial diseases
CPT/HCPCS: 80053; 80061; 85027; 85610; 85730; 87081; 93458; 93571; C1760; C1769; C1887; C1894 ×2; 36415

== ENCOUNTER → 2021-04-21 | Outpatient (CLI) | payer MEDICARE, MEDICAID ==
[~2021-04-21] MED LIST changes: -HEParin (CATH LAB) 2,000 ML IV ONE; -LIDOCAINE 1% INJ 20 ML 20 ML VIAL ONE; -NS IV 1000 ML 1,000 ML IV SCH; -NS IV 1000 ML 1,000 ML ONE
[2021-04-21 12:10] LABS: BASOPHILS # (AUTO) 0.1 10^3/uL (0.0-0.1); BASOPHILS % (AUTO) 1 % (0-10); EOSINOPHILS # (AUTO) 0.1 10^3/uL (0.0-0.3); EOSINOPHILS % (AUTO) 1 % (0-10); HEMATOCRIT 37 % (35-52); HEMOGLOBIN 11.3 g/dL (11.5-16.0); LYMPHOCYTES # (AUTO) 1.6 10^3/uL (1.0-4.0); LYMPHOCYTES % (AUTO) 29 % (12-44); MEAN CORPUSCULAR HEMOGLOBIN 26 pg (25-34); MEAN CORPUSCULAR HGB CONC 30 g/dL (32-36); MEAN CORPUSCULAR VOLUME 87 fL (80-99); MONOCYTES # (AUTO) 0.6 10^3/uL (0.0-1.0); MONOCYTES % (AUTO) 11 % (0-12); NEUTROPHILS # (AUTO) 3.3 10^3/uL (1.8-7.8); NEUTROPHILS % (AUTO) 58 % (42-75); PLATELET COUNT 228 10^3/uL (130-400); WHITE BLOOD COUNT 5.6 10^3/uL (4.3-11.0)
[2021-04-21 12:32] LABS: ALBUMIN 3.7 GM/DL (3.2-4.5); BILIRUBIN,TOTAL 0.6 MG/DL (0.1-1.0); CALCIUM 9.8 MG/DL (8.5-10.1); CREATININE SERUM 0.93 MG/DL (0.60-1.30); POTASSIUM 4.4 MMOL/L (3.6-5.0); TOTAL PROTEIN 6.4 GM/DL (6.4-8.2)
== END ==
LOC: LAB 11:39
PROVIDERS: ATTEND Family Medicine
DX: L03.115 Cellulitis of right lower limb (principal)
CPT/HCPCS: 36415; 80053; 85025; 86141; 87040

== ENCOUNTER 2021-12-29 05:42 | Outpatient (CLI) | payer MEDICARE, MEDICAID ==
[~2021-12-29] VITALS: Ht 162.6 cm; Wt 88.4 kg
[2021-12-29] MEDS ORDERED: SUCR1TAB PO (14:25)
[2021-12-29] MEDS ORDERED: ESTR42.511 VG (14:25)
[2021-12-29] MEDS ORDERED: NITR100C PO (14:25)
== END 2021-12-29 14:28 | disposition home or self-care (01) ==
LOC: PREOP 05:42
PROVIDERS: ATTEND Surgery
DX: Z01.818 Encounter for other preprocedural examination (principal)

== ENCOUNTER 2022-01-11 07:22 | Day surgery (SDC) | payer MEDICARE, MEDICAID ==
[~2022-01-11] VITALS: Ht 175 cm; Wt 88.4 kg
[~2022-01-11 07:22] MED LIST changes: +ESTR42.511 VG; +SUCR1TAB PO
[2022-01-11] MEDS ORDERED: LACTATED RINGERS 1,000 ML IV STA (07:31)
[2022-01-11 07:40] VITALS: BP 150/77
[2022-01-11] MEDS ORDERED: proPOfol 200 MG/20 ML (DIPRIVAN) VIAL IV ONE (07:40)
[2022-01-11] MEDS ORDERED: HURRICAINE EXT TUBE (BENZOCAINE) XX PRN (07:45)
--- NOTE | 2022-01-11 08:41 | Anesthesia-General Post-Op ---
MAC Patient Condition Mental Status/LOC: Same as Preop Cardiovascular: Satisfactory Nausea/Vomiting: Absent Respiratory: Satisfactory Pain: Controlled Complications: Absent Post Op Complications Complications None Follow Up Care/Instructions Patient Instructions None needed. Anesthesiology Discharge Order Discharge Order Patient is doing well, no complaints, stable vital signs, no apparent adverse anesthesia problems. No complications reported per nursing. NIMO SALMON CRNA Jan 11, 2022 08:41
[2022-01-11 08:44] VITALS: BP 138/64
--- NOTE | 2022-01-11 08:44 | Progress Note-Post Operative ---
Post-Operative Progess Note Surgeon (s)/Pier Runner (s) Surgeon EZRA CRUZ DO Pier Runner: na Pre-Operative Diagnosis gerd, epigastric pain Post-Operative Diagnosis hiatal hernia, mucosal changes proximal stomach, inflamed gastric polyp Procedure & Operative Findings Date of Procedure 01/11/22 Procedure Performed/Findings egd c biopsies, snare polypectomy gastric polyp Anesthesia Type per blood bank order control clerk Estimated Blood Loss Estimated blood loss (mL): scant Specimens/Packing Specimens Removed antrum, proximal stomach, gastric polyp EZRA CRUZ DO Jan 11, 2022 08:44
--- NOTE | 2022-01-11 08:46 | Discharge Inst-Simple/Standard ---
Discharge Inst-Standard Patient Instructions/Follow Up Plan of Care/Instructions/FU: 2 weeks Mark Activity as Tolerated: Yes Discharge Diet: Regular Diet EZRA CRUZ DO Jan 11, 2022 08:46
[2022-01-11 09:13] VITALS: BP 113/76
--- NOTE | 2022-01-11 15:23 | OPERATIVE REPORT ---
DATE OF SERVICE: 01/11/2022 PREOPERATIVE DIAGNOSES: Gastroesophageal reflux disease, epigastric abdominal pain. POSTOPERATIVE DIAGNOSES: Hiatal hernia, mucosal change proximal stomach, inflamed gastric polyp. PROCEDURE: EGD with biopsies and snare polypectomy, gastric polyp. SURGEON: Ezra Flores DO ANESTHESIA: Per LACQUER SHADER. ESTIMATED BLOOD LOSS: Scant. COMPLICATIONS: None. INDICATIONS: The patient is a 76-year-old female who has been having some epigastric abdominal pain and GERD symptoms. She understands risks and benefits of procedure and wishes to proceed. Consent was signed in the chart. DESCRIPTION OF PROCEDURE: The patient was taken to the endoscopy suite, placed in left lateral recumbent position. Timeout was performed. Scope was inserted in mouth, down the esophagus, stomach and into the duodenum without difficulty. There were no polyps, masses or ulcerations within the duodenum. Scope was slowly retracted back into the stomach where it was further insufflated. No polyps, masses or ulcerations within the stomach towards the antrum. A biopsy of the antrum was obtained. Scope was retroflexed noting a hiatal hernia. No other pathology. Scope was then slowly retracted back, proximal portion of the stomach through the hiatal hernia. There were inflamed gastric polyp present, which snare polypectomy was performed. Also, there is some proximal mucosal changes in this area as well, which cold biopsies were obtained. Scope was slowly retracted back to the GE junction. No abnormality visualized. No polyps, masses or ulcerations. Scope was slowly retracted back until completely removed. The patient tolerated the procedure well without any complications. She was taken to recovery room in stable condition. RECOMMENDATIONS: The patient will need follow up on pathology. We will continue on current medications. We will see how she is doing at that time and will see depending upon pathology, possible need for repeat endoscopy in one year. Job ID: [id number] DocumentID: [id number] Dictated Date: 01/11/2022 08:49:09 Automation Sales Manager Date: 01/11/2022 15:22:51 Dictated By: EZRA FLORES DO
== END 2022-01-11 09:47 | disposition home or self-care (01) ==
LOC: ENDO 07:22
PROVIDERS: ATTEND Surgery
DX: K31.7 Polyp of stomach and duodenum (principal); K44.9 Diaphragmatic hernia without obstruction or gangrene; K21.9 Gastro-esophageal reflux disease without esophagitis; K29.50 Unspecified chronic gastritis without bleeding; Z88.5 Allergy status to narcotic agent
CPT/HCPCS: 88305

== ENCOUNTER 2022-02-08 17:07 | Emergency (ER) | payer MEDICARE, MEDICAID ==
[~2022-02-08] VITALS: Ht 160 cm; Wt 88.0 kg
[2022-02-08 17:16] VITALS: BP 151/106
[2022-02-08 17:58] LABS: BASOPHILS % (AUTO) 0 % (0-10); EOSINOPHILS # (AUTO) 0.1 10^3/uL (0.0-0.3); EOSINOPHILS % (AUTO) 1 % (0-10); HEMATOCRIT 33 % (35-52); HEMOGLOBIN 10.3 g/dL (11.5-16.0); LYMPHOCYTES # (AUTO) 2.1 10^3/uL (1.0-4.0); LYMPHOCYTES % (AUTO) 36 % (12-44); MEAN CORPUSCULAR HEMOGLOBIN 25 pg (25-34); MEAN CORPUSCULAR HGB CONC 31 g/dL (32-36); MEAN CORPUSCULAR VOLUME 82 fL (80-99); MEAN PLATELET VOLUME 10.5 fL (9.0-12.2); MONOCYTES # (AUTO) 0.7 10^3/uL (0.0-1.0); MONOCYTES % (AUTO) 13 % (0-12); NEUTROPHILS # (AUTO) 2.9 10^3/uL (1.8-7.8); NEUTROPHILS % (AUTO) 49 % (42-75); PLATELET COUNT 176 10^3/uL (130-400); WHITE BLOOD COUNT 5.9 10^3/uL (4.3-11.0)
--- NOTE | 2022-02-08 17:59 | ED Abdominal Pain ---
General Chief Complaint: Abdominal/GI Problems Stated Complaint: STOMACH HURTS,ALTERED MENTAL STATUS Nursing Triage Note: PT AMB TO RM 6. PT CO "FEELING SICK", DIZZINESS, N, V, WEAKNESS, TIRED AND LIGHT HEADED. Source of Information: Patient Exam Limitations: No Limitations History of Present Illness Date Seen by Provider: Feb 08, 2022 Time Seen by Provider: 18:00 Initial Comments Patient is a 76-year-old female who presents ED with upper abdominal discomfort. Symptoms started a few days ago with not feeling well. Started feeling tired not thinking straight. She states family member this past week. Started having some abdominal discomfort with indigestion burning sensation to her upper abdomen. She had a EGD performed by Dr. Flores that noted polyp. Currently following up in 6 months. She denies of any dark tarry stool, bright red blood stool. Patient is being treated for a UTI. Currently on antibiotic that she cannot recall. She did vomit a few times a day. Symptoms became worse today. Denies any current chest pain, cough, shortness of breath, sore throat, headache, nasal, visual changes, urinary symptoms, unilateral muscle weakness or sensory changes. Allergies and Home Medications Allergies Coded Allergies: hydromorphone (Verified Allergy, Mild, "POISONS HER SYSTEM", 03/22/19) morphine (Verified Allergy, Mild, "POISONS HER SYSTEM", 03/22/19) Patient Home Medication List Home Medication List Reviewed: Yes Albuterol Sulfate (Proair Hfa) 1 Puff Puff, 2 PUFF INH Q6H PRN for SHORTNESS OF BREATH, (Reported) Entered as Reported by: HAZEL KEENE on 03/30/21 08 Aspirin (Aspirin EC) 81 Mg Tablet.dr, 81 MG PO DAILY, (Reported) Entered as Reported by: HAZEL KEENE on 03/30/21 08 Cephalexin (Cephalexin) 500 Mg Tablet, 500 MG PO TID Prescribed by: SAVITA SONG on 02/08/22 1857 Estradiol (Estradiol) 0.01 % Cream.appl, 42.5 GM VG UD, (Reported) Entered as Reported by: SARAH MCKEON on 12/29/21 1425 Fluticasone Propionate (Flonase Allergy Relief) 9.9 Ml [place].susp, 1 SPRAY NS DAILY PRN for ALLERGIES, (Reported) Entered as Reported by: HAZEL KEENE on 03/30/21830 Hydrocodone/Acetaminophen (Hydrocodone-Acetamin 5-325 mg) 1 Each Tablet, 1 TAB PO Q8H PRN for PAIN-MODERATE (5-7), (Reported) Entered as Reported by: HAZEL KEENE on 03/30/21830 Lisinopril (Lisinopril) 20 Mg Tablet, 20 MG PO DAILY, (Reported) Entered as Reported by: HAZEL KEENE on 03/30/21830 Nitrofurantoin Macrocrystal (Nitrofurantoin) 100 Mg Capsule, 100 MG PO DAILY, (Reported) Entered as Reported by: SARAH MCKEON on 12/29/21 142 Pantoprazole Sodium (Pantoprazole Sodium) 40 Mg Tablet.dr, 40 MG PO BID, (Reported) Entered as Reported by: DELMA DIANE on 08/16/17 1640 Sucralfate (Sucralfate) 1 Gram Tablet, 1 GM PO ACHS, (Reported) Entered as Reported by: SARAH MCKEON on 12/29/21 142 Sumatriptan Succinate (Sumatriptan Succinate) 100 Mg Tablet, 100 MG PO UD PRN for HEADACHE, (Reported) Entered as Reported by: HAZEL KEENE on 03/30/21830 Tolterodine Tartrate (Tolterodine Tartrate ER) 4 Mg Cap.er.24h, 4 MG PO BID, (Reported) Entered as Reported by: NATHANIEL LEÓN on 04/07/20 1434 Review of Systems Review of Systems Constitutional: No chills; malaise, weakness EENTM: No Eye Pain, No Mouth Pain Respiratory: Denies Cough, Denies Orthopnea Cardiovascular: Denies Chest Pain Gastrointestinal: Abdominal Pain; Denies Blood Streaked Stools, Denies Diarrhea, Denies Nausea; Vomiting Genitourinary: Denies Burning, Denies Discharge Musculoskeletal: No back pain, No joint pain Skin: No change in color, No change in hair/nails All Other Systems Reviewed Negative Unless Noted: Yes Past Ztiwjmk-Uokeby-Sgrunv Hx Patient Social History Tobacco Use?: No Smoking Status: Never a Smoker Substance use?: No Alcohol Use?: No Pt feels they are or have been: No Immunizations Up To Date Tetanus Booster (TDap): More than 5yrs PED Vaccines UTD: No First/Initial COVID19 Vaccinat: 2020 Second COVID19 Vaccination Bernabe: 2020 Third COVID19 Vaccination Date: NO Seasonal Allergies Seasonal Allergies: Yes Past Medical History Surgery/Hospitalization HX: SURGERY; R KNEE, R HIP, BACK SURGERY PMH; HTN, ARTHRITIS, "BAD BACK" 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: 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, Menopausal Sexually Transmitted Disease: No HIV/AIDS: No Genitourinary: Yes UTI-Chronic Gastrointestinal: Yes (CHRONIC CONSTIPATION; REFLUX ; HERNIA REPAIR) Gastroesophageal Reflux, Polyps, Esophagitis Musculoskeletal: Yes Arthritis, Chronic Back Pain, Fractures Endocrine: No HEENT: Yes (S/P CATARACT SURGERY) Cataract Loss of Vision: Bilateral Hearing Impairment: Denies Cancer: No Psychosocial: No Integumentary: No Blood Disorders: No Adverse Reaction/Blood Tranf: No (N/A) Family Medical History Cancer 03 FATHER Cataract 03 MOTHER Chest pain 03 MOTHER Family history: Arthritis 03 MOTHER Family history: Asthma 09 BROTHER Family history: Cardiovascular disease 03 MOTHER Family history: Hypertension 03 MOTHER Family history: Osteoporosis 03 MOTHER History of - respiratory disease 09 BROTHER Hypercholesterolemia 03 MOTHER Visual impairment 03 MOTHER No Family History of: Abdominal aortic aneurysm Thomas's disease Alcoholism Aphasia Cancer of colon Congenital heart disease Congestive heart failure Cystic fibrosis Dementia Dysphagia Family history: Allergy Family history: Alzheimer's disease Family history: Breast disease Family history: Coronary thrombosis Family history: Diabetes mellitus Family history: Gastrointestinal disease Family history: Glaucoma Family history: Thyroid disorder Headache Hearing loss Heart disease Hereditary disease History of - anemia History of - disorder History of drug abuse Human immunodeficiency virus (HIV) seropositivity Infertile Kidney disease Malignant neoplasm of lung Myocardial infarction Parkinson's disease Prostate cancer Psychotic disorder Seizure disorder Stroke Tuberculosis Physical Exam Vital Signs Vital Signs - First Documented 02/08/22 17:16 Temp 36.6 Pulse 78 Resp 20 B/P (MAP) 151/106 (121) Pulse Ox 97 O2 Delivery Room Air Capillary Refill : Less Than 3 Seconds Height/Weight/BMI Height: 5'4.00" Weight: 200lbs. 0.0oz. 90.520457es; 34.00 BMI Method:Stated General Appearance: WD/WN, no apparent distress HEENT: PERRL/EOMI, normal ENT inspection, TMs normal Neck: non-tender, full range of motion, supple, normal inspection Respiratory: chest non-tender, lungs clear, normal breath sounds, no respiratory distress, no accessory muscle use Cardiovascular: regular rate, rhythm, no edema, no gallop Gastrointestinal: normal bowel sounds, soft, no organomegaly, no pulsatile mass, tenderness (Epigastric tenderness.) Extremities: normal range of motion, non-tender, normal inspection, no pedal edema Back: normal inspection, no CVA tenderness Neurologic/Psychiatric: reeling operator II-XII nml as tested, no motor/sensory deficits, alert, normal mood/affect, oriented x 3 Skin: normal color, warm/dry Progress/Results/Core Measures Results/Orders Lab Results Laboratory Tests Test 02/08/22 17:40 02/08/22 17:54 02/08/22 18:25 Range/Units White Blood Count 5.9 4.3-11.0 10^3/uL Red Blood Count 4.08 3.80-5.11 10^6/uL Hemoglobin 10.3 L 11.5-16.0 g/dL Hematocrit 33 L 35-52 % Mean Corpuscular Volume 82 80-99 fL Mean Corpuscular Hemoglobin 25 25-34 pg Mean Corpuscular Hemoglobin Concent 31 L 32-36 g/dL Red Cell Distribution Width 16.3 H 10.0-14.5 % Platelet Count 176 130-400 10^3/uL Mean Platelet Volume 10.5 9.0-12.2 fL Immature Granulocyte % (Auto) 0 % Neutrophils (%) (Auto) 49 42-75 % Lymphocytes (%) (Auto) 36 12-44 % Monocytes (%) (Auto) 13 H 0-12 % Eosinophils (%) (Auto) 1 0-10 % Basophils (%) (Auto) 0 0-10 % Neutrophils # (Auto) 2.9 1.8-7.8 10^3/uL Lymphocytes # (Auto) 2.1 1.0-4.0 10^3/uL Monocytes # (Auto) 0.7 0.0-1.0 10^3/uL Eosinophils # (Auto) 0.1 0.0-0.3 10^3/uL Basophils # (Auto) 0.0 0.0-0.1 10^3/uL Immature Granulocyte # (Auto) 0.0 0.0-0.1 10^3/uL Sodium Level 138 135-145 MMOL/L Potassium Level 3.8 3.6-5.0 MMOL/L Chloride Level 105 98-107 MMOL/L Carbon Dioxide Level 23 21-32 MMOL/L Anion Gap 10 5-14 MMOL/L Blood Urea Nitrogen 16 7-18 MG/DL Creatinine 0.78 0.60-1.30 MG/DL Estimat Glomerular Filtration Rate 78 BUN/Creatinine Ratio 21 Glucose Level 99 70-105 MG/DL Calcium Level 9.3 8.5-10.1 MG/DL Corrected Calcium 9.6 8.5-10.1 MG/DL Total Bilirubin 0.4 0.1-1.0 MG/DL Aspartate Amino Transf (AST/SGOT) 21 5-34 U/L Alanine Aminotransferase (ALT/SGPT) 16 0-55 U/L Alkaline Phosphatase 106 40-136 U/L C-Reactive Protein High Sensitivity 0.41 0.00-0.50 MG/DL Total Protein 6.1 L 6.4-8.2 GM/DL Albumin 3.6 3.2-4.5 GM/DL Lipase 23 8-78 U/L Procalcitonin 0.05 <0.10 NG/ML Troponin I < 0.028 <0.028 NG/ML Urine Color YELLOW Urine Clarity SL CLOUDY Urine pH 7.0 5-9 Urine Specific [place] 1.015 L 1.016-1.022 Urine Protein NEGATIVE NEGATIVE Urine Glucose (UA) NEGATIVE NEGATIVE Urine Ketones 1+ H NEGATIVE Urine Nitrite NEGATIVE NEGATIVE Urine Bilirubin NEGATIVE NEGATIVE Urine Urobilinogen 0.2 < = 1.0 MG/DL Urine Leukocyte Esterase TRACE H NEGATIVE Urine RBC (Auto) TRACE-I H NEGATIVE Urine RBC NONE /HPF Urine WBC 5-10 H /HPF Urine Squamous Epithelial Cells 2-5 /HPF Urine Renal Epithelial Cells 0-2 /HPF Urine Crystals PRESENT H /LPF Urine Amorphous Sediment MOD JAVIER PHOSPHATE H /LPF Urine Bacteria LARGE H /HPF Urine Casts NONE /LPF Urine Mucus MODERATE H /LPF Urine Culture Indicated YES My Orders Orders - JOSELIN CAAL Cbc With Automated Diff (02/08/22 17:52) Comprehensive Metabolic Panel (02/08/22 17:52) Lipase (02/08/22 17:52) Procalcitonin (Pct) (02/08/22 17:52) Hs C Reactive Protein (02/08/22 17:52) Urinalysis (02/08/22 17:52) Ekg Tracing (02/08/22 17:52) Chest 1 View, Ap/Pa Only (02/08/22 17:52) Lidocaine 2% Viscous 15 Ml (Xylocaine Vi (02/08/22 18:00) Antacid Suspension (Mylanta Suspension (02/08/22 18:00) Troponin I [place] (02/08/22 18:19) Urine Culture (02/08/22 18:25) Ceftriaxone 1 Gm Pre-Mix (Rocephin 1 Gm (02/08/22 18:55) Medications Given in ED Current Medications Medications Dose Ordered Sig/Reed Route Start Time Stop Time Status Last Admin Dose Admin Al Hydrox/Mg Hydrox/Simethicone 30 ml ONCE ONCE PO 02/08/22 18:00 02/08/22 18:01 DC 02/08/22 18:03 30 ML Lidocaine HCl 15 ml ONCE ONCE PO 02/08/22 18:00 02/08/22 18:01 DC 02/08/22 18:03 15 ML Vital Signs/I&O 02/08/22 17:16 Temp 36.6 Pulse 78 Resp 20 B/P (MAP) 151/106 (121) Pulse Ox 97 O2 Delivery Room Air Blood Pressure Mean: 121 Departure Communication (PCP) Patient with epigastric discomfort. Dr. Flores perform an EGD 1 month ago that showed gastric polyp with cauterization. Thickening of the stomach. History of GERD and hiatal hernia which was noted. Abdominal discomfort today not felt well with episode of vomiting. She does take Protonix daily for GERD. She was given GI cocktail with resolution of pain. Secondary to the indigestion and location of pain cardiac work-up was ordered. EKG without evidence of ST elevation depression. Cardiac work-up unremarkable. Chest x-ray unremarkable. Describes the pain as more of a burning sensation and discomfort. No cough, shortness of breath, wheezing. Urinalysis concerning for UTI. Patient was recently placed on Macrobid last week and is concerned that her symptoms may not be resolving. This may be result of not feeling well but not the epigastric pain. She was given dose of Rocephin here. Will discharge with Keflex for 7 days. Recommend recheck with urinalysis with primary care physician in 5 days. Discussed diet changes. Continue with your Protonix. She denies of any dark tarry stool. She feels better with a GI cocktail. If any worsening symptoms return back to ED for further evaluation. Impression Primary Impression: Epigastric pain Additional Impression: UTI (urinary tract infection) Disposition: 01 HOME, SELF-CARE Condition: Stable Departure-Patient Inst. Decision time for Depature: 18:56 Referrals: CYNTHIA ALATORRE MD (PCP/Family) Primary Care Physician Patient Instructions: Urinary Tract Infection, Adult ED Scripts Cephalexin (Cephalexin) 500 Mg Tablet 500 MG PO TID for 7 Days, #21 TAB Prov: JOSELIN CAAL 02/08/22 JOSELIN CAAL Feb 08, 2022 17:59
[2022-02-08] MEDS ORDERED: ANTACID SUSP 30 ML UDC (MYLANTA) PO ONE (18:00)
[2022-02-08] MEDS ORDERED: LIDOCAINE 2% VISCOUS 15 ML UDC PO ONE (18:00)
[2022-02-08 18:01] LABS: ALBUMIN 3.6 GM/DL (3.2-4.5); POTASSIUM 3.8 MMOL/L (3.6-5.0)
[2022-02-08 18:02] LABS: CALCIUM 9.3 MG/DL (8.5-10.1)
[2022-02-08 18:03] LABS: TOTAL PROTEIN 6.1 GM/DL (6.4-8.2)
[2022-02-08 18:05] LABS: BILIRUBIN,TOTAL 0.4 MG/DL (0.1-1.0)
[2022-02-08 18:07] LABS: CREATININE SERUM 0.78 MG/DL (0.60-1.30)
--- NOTE | 2022-02-08 18:08 | Diagnostic Imaging Report ---
INDICATION: Chest pain. COMPARISON: 08/08/2019. FINDINGS: The lungs are clear. No failure, effusion, or pneumothorax. IMPRESSION: No acute appearing abnormality. Dictated by: Dictated on workstation # [id number]
[2022-02-08 18:37] LABS: BILIRUBIN,URINE NEGATIVE (NEGATIVE); CLARITY,URINE SL CLOUDY; COLOR,URINE YELLOW; GLUCOSE, URINE (UA) NEGATIVE (NEGATIVE); KETONES,URINE 1+ (NEGATIVE); LEUKOCYTE ESTERASE ,URINE TRACE (NEGATIVE); NITRITE,URINE NEGATIVE (NEGATIVE); PROTEIN,URINE NEGATIVE (NEGATIVE)
[2022-02-08 18:45] LABS: AMORPHOUS SEDIMENT,UR MOD AMOR PHOSPHATE /LPF; BACTERIA,URINE LARGE /HPF; RENAL EPITHELIAL CELLS,URINE 0-2 /HPF
[2022-02-08] MEDS ORDERED: cefTRIAXone 1 GM PRE-MIX 50 ML IV STA (18:55)
[2022-02-08] MEDS ORDERED: CEPH500T PO (18:57)
== END 2022-02-08 19:52 | disposition home or self-care (01) ==
LOC: EDUNIT# 17:07 → ER 17:10
DX: R10.13 Epigastric pain (principal); N39.0 Urinary tract infection, site not specified; Z87.19 Personal history of other diseases of the digestive system; Z79.2 Long term (current) use of antibiotics
CPT/HCPCS: 36415; 36591; 71045; 80053; 81000; 83690; 84145; 84484; 85025; 86141; 87077; 87088; 87186; 93005

== ENCOUNTER → 2022-03-14 | Outpatient (CLI) | payer MEDICARE, MEDICAID ==
[~2022-03-14] MED LIST changes: +CEPH500T PO; +HEParin (CENTRAL IV FLUSH) 500 UNIT/5 ML SYR IV ONE; +HEParin (CENTRAL IV FLUSH) 500 UNIT/5 ML SYR ONE
[2022-03-14 12:00] LABS: BASOPHILS % (AUTO) 1 % (0-10); EOSINOPHILS # (AUTO) 0.2 10^3/uL (0.0-0.3); EOSINOPHILS % (AUTO) 5 % (0-10); HEMATOCRIT 35 % (35-52); HEMOGLOBIN 10.9 g/dL (11.5-16.0); LYMPHOCYTES # (AUTO) 1.3 10^3/uL (1.0-4.0); LYMPHOCYTES % (AUTO) 25 % (12-44); MEAN CORPUSCULAR HEMOGLOBIN 25 pg (25-34); MEAN CORPUSCULAR HGB CONC 31 g/dL (32-36); MEAN CORPUSCULAR VOLUME 80 fL (80-99); MEAN PLATELET VOLUME 10.9 fL (9.0-12.2); MONOCYTES # (AUTO) 0.6 10^3/uL (0.0-1.0); MONOCYTES % (AUTO) 12 % (0-12); NEUTROPHILS # (AUTO) 2.9 10^3/uL (1.8-7.8); NEUTROPHILS % (AUTO) 58 % (42-75); PLATELET COUNT 170 10^3/uL (130-400); WHITE BLOOD COUNT 5.1 10^3/uL (4.3-11.0)
[2022-03-14 12:28] LABS: ALBUMIN 3.6 GM/DL (3.2-4.5); BILIRUBIN,TOTAL 0.5 MG/DL (0.1-1.0); CALCIUM 9.4 MG/DL (8.5-10.1); CREATININE SERUM 0.85 MG/DL (0.60-1.30); POTASSIUM 4.2 MMOL/L (3.6-5.0); TOTAL PROTEIN 6.2 GM/DL (6.4-8.2)
== END ==
LOC: LAB 11:32
PROVIDERS: ATTEND Family Medicine
DX: E78.5 Hyperlipidemia, unspecified (principal); M81.0 Age-related osteoporosis without current pathological fracture; I10 Essential (primary) hypertension
CPT/HCPCS: 36415; 80053; 80061; 82306; 85025

== ENCOUNTER 2022-04-14 14:23 | Emergency (ER) | payer MEDICARE, MEDICAID ==
[~2022-04-14] VITALS: Ht 160 cm; Wt 88.5 kg
[~2022-04-14 14:23] MED LIST changes: -HEParin (CENTRAL IV FLUSH) 500 UNIT/5 ML SYR IV ONE; -HEParin (CENTRAL IV FLUSH) 500 UNIT/5 ML SYR ONE
--- NOTE | 2022-04-14 14:42 | ED Chest Pain ---
General Chief Complaint: Chest Pain Stated Complaint: CHEST/BACK PAIN Nursing Triage Note: PT TO RM 8 BY WC WITH COMPLAINT OF CP. STATES PAIN STARTED AROUND 9A. COMPLAINS OF HAVING SOA AND WEAKNESS. STATES IS CURRENTLY BEING TREATED FOR BLADDER INFECTION. Source: patient Exam Limitations: no limitations History of Present Illness Date Seen by Provider: Apr 14, 2022 Time Seen by Provider: 14:30 Initial Comments Patient is a 77 yo F who presents to the ED with epigastric/lower substernal pain that began earlier today. Pt states she was at rest when the symptoms s tarted. She states the pain worsened after she ate. Denies any other aggravating or alleviating factors. Denies any nausea/vomiting, fever, URI symptoms, shortness of breath. States she has also had some upper back pain. States the pain is now improved from when it began. She has not taken anything for the symptoms. States she has a hiatal hernia that caused similar symptoms in the past but not as high up in the chest as is located today. Pt denies any specific history of cardiopulmonary disease. Denies any current or history of smoking. 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 NTG SL SYRUP MACHINE LABORER: No Associated Symptoms: back pain Allergies and Home Medications Allergies Coded Allergies: hydromorphone (Verified Allergy, Mild, "POISONS HER SYSTEM", 03/22/19) morphine (Verified Allergy, Mild, "POISONS HER SYSTEM", 03/22/19) Patient Home Medication List Home Medication List Reviewed: Yes Albuterol Sulfate (Proair Hfa) 1 Puff Puff, 2 PUFF INH Q6H PRN for SHORTNESS OF BREATH, (Reported) Entered as Reported by: HAZEL KEENE on 03/30/21 0831 Aspirin (Aspirin EC) 81 Mg Tablet.dr, 81 MG PO DAILY, (Reported) Entered as Reported by: HAZEL KEENE on 03/30/21 0831 Cephalexin (Cephalexin) 500 Mg Tablet, 500 MG PO TID Prescribed by: SAVITA SONG on 02/08/22 1857 Estradiol (Estradiol) 0.01 % Cream.appl, 42.5 GM VG UD, (Reported) Entered as Reported by: SARAH MCKEON on 12/29/21 142 Fluticasone Propionate (Flonase Allergy Relief) 9.9 Ml [place].susp, 1 SPRAY NS DAILY PRN for ALLERGIES, (Reported) Entered as Reported by: HAZEL KEENE on 03/30/21 08 Hydrocodone/Acetaminophen (Hydrocodone-Acetamin 5-325 mg) 1 Each Tablet, 1 TAB PO Q8H PRN for PAIN-MODERATE (5-7), (Reported) Entered as Reported by: HAZEL KEENE on 03/30/21830 Lisinopril (Lisinopril) 20 Mg Tablet, 20 MG PO DAILY, (Reported) Entered as Reported by: HAZEL KEENE on 03/30/21 08 Nitrofurantoin Macrocrystal (Nitrofurantoin) 100 Mg Capsule, 100 MG PO DAILY, (Reported) Entered as Reported by: SARAH MCKEON on 12/29/21 142 Pantoprazole Sodium (Pantoprazole Sodium) 40 Mg Tablet.dr, 40 MG PO BID, (Reported) Entered as Reported by: DELMA DIANE on 08/16/17 1640 Sucralfate (Sucralfate) 1 Gram Tablet, 1 GM PO ACHS, (Reported) Entered as Reported by: SARAH MCKEON on 12/29/21 142 Sumatriptan Succinate (Sumatriptan Succinate) 100 Mg Tablet, 100 MG PO UD PRN for HEADACHE, (Reported) Entered as Reported by: HAZEL KEENE on 03/30/21830 Tolterodine Tartrate (Tolterodine Tartrate ER) 4 Mg Cap.er.24h, 4 MG PO BID, (Reported) Entered as Reported by: NATHANIEL LEÓN on 04/07/20 1434 Review of Systems Review of Systems Constitutional: no symptoms reported EENTM: No Symptoms Reported Respiratory: No Symptoms Reported Cardiovascular: Chest Pain; Denies Irregular Heart Rate, Denies Lightheadedness, Denies Palpitations, Denies Syncope Gastrointestinal: Abdominal Pain Skin: no symptoms reported Past Ixarqcg-Hosxfo-Hnmpuy Hx Patient Social History Tobacco Use?: No Use of E-Cig and/or Vaping dev: No Substance use?: No Alcohol Use?: No Immunizations Up To Date Tetanus Booster (TDap): More than 5yrs PED Vaccines UTD: No First/Initial COVID19 Vaccinat: 2020 Second COVID19 Vaccination Bernabe: 2020 Third COVID19 Vaccination Date: NO Seasonal Allergies Seasonal Allergies: Yes Past Medical History Surgery/Hospitalization HX: SURGERY; R KNEE, R HIP, BACK SURGERY PMH; HTN, ARTHRITIS, "BAD BACK" 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 [place] History: 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, Menopausal Sexually Transmitted Disease: No HIV/AIDS: No Genitourinary: Yes UTI-Chronic Gastrointestinal: Yes (CHRONIC CONSTIPATION; REFLUX ; HERNIA REPAIR) Gastroesophageal Reflux, Polyps, Esophagitis Musculoskeletal: Yes Arthritis, Chronic Back Pain, Fractures Endocrine: No HEENT: Yes (S/P CATARACT SURGERY) Cataract Loss of Vision: Bilateral Hearing Impairment: Denies Cancer: No Psychosocial: No Integumentary: No Blood Disorders: No Adverse Reaction/Blood Tranf: No (N/A) Family Medical History Cancer 03 FATHER Cataract 03 MOTHER Chest pain 03 MOTHER Family history: Arthritis 03 MOTHER Family history: Asthma 09 BROTHER Family history: Cardiovascular disease 03 MOTHER Family history: Hypertension 03 MOTHER Family history: Osteoporosis 03 MOTHER History of - respiratory disease 09 BROTHER Hypercholesterolemia 03 MOTHER Visual impairment 03 MOTHER No Family History of: Abdominal aortic aneurysm Nick's disease Alcoholism Aphasia Cancer of colon Congenital heart disease Congestive heart failure Cystic fibrosis Dementia Dysphagia Family history: Allergy Family history: Alzheimer's disease Family history: Breast disease Family history: Coronary thrombosis Family history: Diabetes mellitus Family history: Gastrointestinal disease Family history: Glaucoma Family history: Thyroid disorder Headache Hearing loss Heart disease Hereditary disease History of - anemia History of - disorder History of drug abuse Human immunodeficiency virus (HIV) seropositivity Infertile Kidney disease Malignant neoplasm of lung Myocardial infarction Parkinson's disease Prostate cancer Psychotic disorder Seizure disorder Stroke Tuberculosis Physical Exam Vital Signs Vital Signs - First Documented 04/14/22 04/14/22 14:24 16:30 Temp 36.4 Pulse 83 Resp 16 B/P (MAP) 114/59 (77) Pulse Ox 97 O2 Delivery Room Air Capillary Refill : Height, Weight, BMI Height: 5'4.00" Weight: 200lbs. 0.0oz. 90.652649ci; 34.00 BMI Method:Stated General Appearance: No Apparent Distress, WD/WN HEENT: PERRL/EOMI, TMs Normal, Normal ENT Inspection, Pharynx Normal Neck: Full Range of Motion, Normal Inspection, Non Tender Respiratory: Chest Non Tender, Lungs Clear, Normal Breath Sounds, No Accessory Muscle Use, No Respiratory Distress Cardiovascular: Regular Rate, Rhythm, No Edema, No Gallop, No JVD, No Murmur, Normal Peripheral Pulses Gastrointestinal: Normal Bowel Sounds, No Organomegaly, No Pulsatile Mass, Tenderness (epigastric) Extremity: Normal Capillary Refill, Normal Inspection, Normal Range of Motion, Non Tender, No Calf Tenderness, No Pedal Edema Neurologic/Psychiatric: Alert, Oriented x3, No Motor/Sensory Deficits, Normal Mood/Affect Skin: Normal Color, Warm/Dry Progress/Results/Core Measures Results/Orders Lab Results Laboratory Tests Test 04/14/22 14:35 Range/Units White Blood Count 6.0 4.3-11.0 10^3/uL Red Blood Count 4.24 3.80-5.11 10^6/uL Hemoglobin 10.6 L 11.5-16.0 g/dL Hematocrit 34 L 35-52 % Mean Corpuscular Volume 80 80-99 fL Mean Corpuscular Hemoglobin 25 25-34 pg Mean Corpuscular Hemoglobin Concent 31 L 32-36 g/dL Red Cell Distribution Width 18.3 H 10.0-14.5 % Platelet Count 177 130-400 10^3/uL Mean Platelet Volume 10.3 9.0-12.2 fL Immature Granulocyte % (Auto) 0 % Neutrophils (%) (Auto) 61 42-75 % Lymphocytes (%) (Auto) 25 12-44 % Monocytes (%) (Auto) 13 H 0-12 % Eosinophils (%) (Auto) 1 0-10 % Basophils (%) (Auto) 1 0-10 % Neutrophils # (Auto) 3.6 1.8-7.8 10^3/uL Lymphocytes # (Auto) 1.5 1.0-4.0 10^3/uL Monocytes # (Auto) 0.8 0.0-1.0 10^3/uL Eosinophils # (Auto) 0.1 0.0-0.3 10^3/uL Basophils # (Auto) 0.0 0.0-0.1 10^3/uL Immature Granulocyte # (Auto) 0.0 0.0-0.1 10^3/uL Prothrombin Time 14.5 12.2-14.7 SEC INR Comment 1.1 0.8-1.4 Activated Partial Thromboplast Time 33 24-35 SEC Sodium Level 139 135-145 MMOL/L Potassium Level 4.2 3.6-5.0 MMOL/L Chloride Level 107 98-107 MMOL/L Carbon Dioxide Level 24 21-32 MMOL/L Anion Gap 8 5-14 MMOL/L Blood Urea Nitrogen 14 7-18 MG/DL Creatinine 0.83 0.60-1.30 MG/DL Estimat Glomerular Filtration Rate 72 BUN/Creatinine Ratio 17 Glucose Level 102 70-105 MG/DL Calcium Level 9.1 8.5-10.1 MG/DL Corrected Calcium 9.5 8.5-10.1 MG/DL Magnesium Level 2.1 1.6-2.4 MG/DL Total Bilirubin 0.4 0.1-1.0 MG/DL Aspartate Amino Transf (AST/SGOT) 19 5-34 U/L Alanine Aminotransferase (ALT/SGPT) 12 0-55 U/L Alkaline Phosphatase 106 40-136 U/L Troponin I < 0.028 <0.028 NG/ML Total Protein 6.1 L 6.4-8.2 GM/DL Albumin 3.5 3.2-4.5 GM/DL My Orders Orders - RAÚL SEPULVEDA LINUX ADMIN Cbc With Automated Diff (04/14/22 14:43) Magnesium (04/14/22 14:43) Chest 1 View, Ap/Pa Only (04/14/22 14:43) Ekg Tracing (04/14/22 14:43) Comprehensive Metabolic Panel (04/14/22 14:43) Protime With Inr (04/14/22 14:43) Partial Thromboplastin Time (04/14/22 14:43) O2 (04/14/22 14:43) Monitor-Rhythm Ecg Trace Only (04/14/22 14:43) Ed Iv/Invasive Line Start (04/14/22 14:43) Troponin I [place] (04/14/22 14:43) Aspirin Chewable Tablet (Baby Aspirin Ch (04/14/22 14:45) Antacid Suspension ([place] Suspension (04/14/22 14:45) Lidocaine 2% Viscous 15 Ml (Xylocaine Vi (04/14/22 14:45) Heparin (Central Iv Flush) (Heparin ([place] (04/14/22 16:15) Medications Given in ED Current Medications Medications Dose Ordered Sig/Reed Route Start Time Stop Time Status Last Admin Dose Admin Al Hydrox/Mg Hydrox/Simethicone 30 ml ONCE ONCE PO 04/14/22 14:45 04/14/22 14:47 DC 04/14/22 15:01 30 ML Aspirin 324 mg ONCE ONCE PO 04/14/22 14:45 04/14/22 14:47 DC 04/14/22 14:57 324 MG Heparin Sodium (Porcine) 500 unit ONCE ONCE IV 04/14/22 16:15 04/14/22 16:21 DC 04/14/22 16:23 300 UNIT Lidocaine HCl 5 ml ONCE ONCE PO 04/14/22 14:45 04/14/22 14:47 DC 04/14/22 15:01 5 ML Vital Signs/I&O 04/14/22 04/14/22 14:24 16:30 Temp 36.4 Pulse 83 83 Resp 16 16 B/P (MAP) 114/59 (77) 114/59 Pulse Ox 97 97 O2 Delivery Room Air Room Air Blood Pressure Mean: 77 Progress Progress Note : Progress Note Pt is nontoxic and well hydrated on exam. Vital signs are reassuring. Epigastric TTP noted on exam. Will obtain labs, EKG, and chest xray. Laboratory evaluation is reassuring with negative troponin. Chest xray acutely negative. EKG without acute ischemic change or arrhythmia. Patient had near complete resolution of symptoms after GI cocktail was administered. She is requesting discharge. This seems appropriate. Low suspicion of ACS, aortic dissection, pneumothorax, or other emergent etiologies of her pain. Discussed supportive care and close follow-up with PCP for persistent symptoms. Return precautions for urgent symptomology discussed. Patient verbalized understanding. EKG : EKG Time: 14:29 Rate: 78 Rhythm: Normal Sinus Intervals: Normal ECG Impression: Nonspecific Changes Departure Impression Primary Impression: Epigastric pain Disposition: HOME, SELF-CARE Condition: Improved Departure-Patient Inst. Decision time for Depature: 16:00 Referrals: CYNTHIA ALATORRE MD (PCP/Family) Primary Care Physician Patient Instructions: Acid Reflux and GERD in Adults (DC) RAÚL SEPULVEDA APRN Apr 14, 2022 14:42
[2022-04-14] MEDS ORDERED: ASPIRIN 81 MG CHEW (CHILDREN'S ASA) PO ONE (14:45)
[2022-04-14] MEDS ORDERED: LIDOCAINE 2% VISCOUS 15 ML UDC PO ONE (14:45)
[2022-04-14] MEDS ORDERED: ANTACID SUSP 30 ML UDC (MYLANTA) PO ONE (14:45)
[2022-04-14 14:51] LABS: BASOPHILS % (AUTO) 1 % (0-10); EOSINOPHILS # (AUTO) 0.1 10^3/uL (0.0-0.3); EOSINOPHILS % (AUTO) 1 % (0-10); HEMATOCRIT 34 % (35-52); HEMOGLOBIN 10.6 g/dL (11.5-16.0); LYMPHOCYTES # (AUTO) 1.5 10^3/uL (1.0-4.0); LYMPHOCYTES % (AUTO) 25 % (12-44); MEAN CORPUSCULAR HEMOGLOBIN 25 pg (25-34); MEAN CORPUSCULAR HGB CONC 31 g/dL (32-36); MEAN CORPUSCULAR VOLUME 80 fL (80-99); MEAN PLATELET VOLUME 10.3 fL (9.0-12.2); MONOCYTES # (AUTO) 0.8 10^3/uL (0.0-1.0); MONOCYTES % (AUTO) 13 % (0-12); NEUTROPHILS # (AUTO) 3.6 10^3/uL (1.8-7.8); NEUTROPHILS % (AUTO) 61 % (42-75); PLATELET COUNT 177 10^3/uL (130-400)
[2022-04-14 15:02] LABS: ALBUMIN 3.5 GM/DL (3.2-4.5); POTASSIUM 4.2 MMOL/L (3.6-5.0)
[2022-04-14 15:03] LABS: INR 1.1 (0.8-1.4); PROTHROMBIN TIME PATIENT 14.5 SEC (12.2-14.7)
[2022-04-14 15:04] LABS: CALCIUM 9.1 MG/DL (8.5-10.1)
[2022-04-14 15:05] LABS: TOTAL PROTEIN 6.1 GM/DL (6.4-8.2)
[2022-04-14 15:07] LABS: BILIRUBIN,TOTAL 0.4 MG/DL (0.1-1.0)
[2022-04-14 15:08] LABS: CREATININE SERUM 0.83 MG/DL (0.60-1.30)
[2022-04-14 15:11] LABS: MAGNESIUM 2.1 MG/DL (1.6-2.4)
--- NOTE | 2022-04-14 15:23 | Diagnostic Imaging Report ---
CHEST 1 VIEW, AP/PA ONLY Indication: Chest pain. Comparison: 02/08/2022 Findings: No focal airspace disease in the visualized lungs. Please note that the posterior lower lobes are poorly evaluated by portable radiography. No pleural effusion or pneumothorax. Normal heart size. Stable small hiatal hernia. Impression: 1. No acute cardiopulmonary process by portable radiography. Dictated by: Dictated on workstation # [id number]
[2022-04-14] MEDS ORDERED: HEParin (CENTRAL IV FLUSH) 500 UNIT/5 ML SYR IV ONE (16:15)
[2022-04-14 16:30] VITALS: BP 114/59
== END 2022-04-14 16:31 | disposition home or self-care (01) ==
LOC: EDUNIT# 14:23 → ER 14:25
DX: R10.13 Epigastric pain (principal)
CPT/HCPCS: 36415; 71045; 80053; 83735; 84484; 85025; 85610; 85730; 93005

== ENCOUNTER 2022-04-28 15:01 | Emergency (ER) | payer MEDICARE, MEDICAID ==
[~2022-04-28] VITALS: Ht 160 cm; Wt 86.1 kg
--- NOTE | 2022-04-28 15:10 | ED Abdominal Pain ---
General Stated Complaint: PAINFUL WITH URINATION History of Present Illness Date Seen by Provider: Apr 28, 2022 Time Seen by Provider: 15:09 Initial Comments Patient presents to the emergency department for UTI like symptoms for the past few days. History of UTIs in the past. Has surgery scheduled next week and wants to get rid of this infection prior to surgery so that it does not get postponed. Denies nausea, vomiting, diarrhea or fever or flank pain. Does have suprapubic pain. Timing/Duration: 2-3 Days Severity/Quality: Moderate Location: Suprapubic Radiation: No Radiation Activities at Onset: None Modifying Factors: Worsens With Urinating Associated Symptoms: No Back Pain, No Fever/Chills, No Nausea/Vomiting Allergies and Home Medications Allergies Coded Allergies: hydromorphone (Verified Allergy, Mild, "POISONS HER SYSTEM", 03/22/19) morphine (Verified Allergy, Mild, "POISONS HER SYSTEM", 03/22/19) Patient Home Medication List Home Medication List Reviewed: Yes Albuterol Sulfate (Proair Hfa) 1 Puff Puff, 2 PUFF INH Q6H PRN for SHORTNESS OF BREATH, (Reported) Entered as Reported by: HAZEL KEENE on 03/30/21830 Aspirin (Aspirin EC) 81 Mg Tablet.dr, 81 MG PO DAILY, (Reported) Entered as Reported by: HAZEL KEENE on 03/30/21830 Cephalexin (Cephalexin) 500 Mg Tablet, 500 MG PO TID Prescribed by: SAVITA SONG on 02/08/22 1857 Estradiol (Estradiol) 0.01 % Cream.appl, 42.5 GM VG UD, (Reported) Entered as Reported by: SARAH MCKEON on 12/29/21 1425 Fluticasone Propionate (Flonase Allergy Relief) 9.9 Ml [place].susp, 1 SPRAY NS DAILY PRN for ALLERGIES, (Reported) Entered as Reported by: HAZEL KEENE on 03/30/21830 Hydrocodone/Acetaminophen (Hydrocodone-Acetamin 5-325 mg) 1 Each Tablet, 1 TAB PO Q8H PRN for PAIN-MODERATE (5-7), (Reported) Entered as Reported by: HAZEL KEENE on 03/30/21830 Lisinopril (Lisinopril) 20 Mg Tablet, 20 MG PO DAILY, (Reported) Entered as Reported by: HAZEL KEENE on 03/30/21 0831 Nitrofurantoin Macrocrystal (Nitrofurantoin) 100 Mg Capsule, 100 MG PO DAILY, (Reported) Entered as Reported by: SARAH MCKEON on 12/29/21 1425 Pantoprazole Sodium (Pantoprazole Sodium) 40 Mg Tablet.dr, 40 MG PO BID, (Reported) Entered as Reported by: DELMA DIANE on 08/16/17 1640 Sucralfate (Sucralfate) 1 Gram Tablet, 1 GM PO ACHS, (Reported) Entered as Reported by: SARAH MCKEON on 12/29/21 142 Sumatriptan Succinate (Sumatriptan Succinate) 100 Mg Tablet, 100 MG PO UD PRN for HEADACHE, (Reported) Entered as Reported by: HAZEL KEENE on 03/30/21 0831 Tolterodine Tartrate (Tolterodine Tartrate ER) 4 Mg Cap.er.24h, 4 MG PO BID, (Reported) Entered as Reported by: NATHANIEL LEÓN on 04/07/20 1434 Review of Systems Review of Systems Constitutional: No chills, No fever Respiratory: No Symptoms Reported Cardiovascular: No Symptoms Reported Gastrointestinal: Abdominal Pain (suprapubic); Denies Diarrhea, Denies Nausea, Denies Vomiting Genitourinary: Burning; Denies Discharge; Frequency; Denies Flank Pain, Denies Hematuria; Incontinence, Pain, Urgency Musculoskeletal: No back pain Skin: no symptoms reported All Other Systems Reviewed Negative Unless Noted: Yes Past Lumfofa-Hnfpwo-Snnmuv Hx Immunizations Up To Date Tetanus Booster (TDap): More than 5yrs PED Vaccines UTD: No First/Initial COVID19 Vaccinat: 2020 Second COVID19 Vaccination Bernabe: 2020 Third COVID19 Vaccination Date: NO Seasonal Allergies Seasonal Allergies: Yes Past Medical History Surgery/Hospitalization HX: SURGERY; R KNEE, R HIP, BACK SURGERY PMH; HTN, ARTHRITIS, "BAD BACK" 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, Menopausal Sexually Transmitted Disease: No HIV/AIDS: No Genitourinary: Yes UTI-Chronic Gastrointestinal: Yes (CHRONIC CONSTIPATION; REFLUX ; HERNIA REPAIR) Gastroesophageal Reflux, Polyps, Esophagitis Musculoskeletal: Yes Arthritis, Chronic Back Pain, Fractures Endocrine: No HEENT: Yes (S/P CATARACT SURGERY) Cataract Loss of Vision: Bilateral Hearing Impairment: Denies Cancer: No Psychosocial: No Integumentary: No Blood Disorders: No Adverse Reaction/Blood Tranf: No (N/A) Family Medical History Reviewed Nursing Family Hx Cancer 03 FATHER Cataract 03 MOTHER Chest pain 03 MOTHER Family history: Arthritis 03 MOTHER Family history: Asthma 09 BROTHER Family history: Cardiovascular disease 03 MOTHER Family history: Hypertension 03 MOTHER Family history: Osteoporosis 03 MOTHER History of - respiratory disease 09 BROTHER Hypercholesterolemia 03 MOTHER Visual impairment 03 MOTHER No Family History of: Abdominal aortic aneurysm Nick's disease Alcoholism Aphasia Cancer of colon Congenital heart disease Congestive heart failure Cystic fibrosis Dementia Dysphagia Family history: Allergy Family history: Alzheimer's disease Family history: Breast disease Family history: Coronary thrombosis Family history: Diabetes mellitus Family history: Gastrointestinal disease Family history: Glaucoma Family history: Thyroid disorder Headache Hearing loss Heart disease Hereditary disease History of - anemia History of - disorder History of drug abuse Human immunodeficiency virus (HIV) seropositivity Infertile Kidney disease Malignant neoplasm of lung Myocardial infarction Parkinson's disease Prostate cancer Psychotic disorder Seizure disorder Stroke Tuberculosis Physical Exam Vital Signs Vital Signs - First Documented 04/28/22 04/28/22 15:13 17:36 Temp 35.9 Pulse 96 Resp 16 B/P (MAP) 138/83 (101) Pulse Ox 98 O2 Delivery Room Air Capillary Refill : Height/Weight/BMI Height: 5'4.00" Weight: 200lbs. 0.0oz. 90.429310an; 34.00 BMI Method:Stated General Appearance: no apparent distress Respiratory: chest non-tender, lungs clear, normal breath sounds, no respiratory distress, no accessory muscle use Cardiovascular: regular rate, rhythm, no edema Gastrointestinal: normal bowel sounds, non tender, soft Extremities: normal range of motion, non-tender Back: No CVA tenderness (R), No CVA tenderness (L) Neurologic/Psychiatric: alert, normal mood/affect, oriented x 3 Skin: normal color, warm/dry Progress/Results/Core Measures Results/Orders Lab Results Laboratory Tests Test 04/28/22 15:14 04/28/22 16:37 Range/Units Urine Color YELLOW Urine Clarity CLEAR Urine pH 6.0 5-9 Urine Specific [place] <=1.005 1.016-1.022 Urine Protein NEGATIVE NEGATIVE Urine Glucose (UA) NEGATIVE NEGATIVE Urine Ketones NEGATIVE NEGATIVE Urine Nitrite NEGATIVE NEGATIVE Urine Bilirubin NEGATIVE NEGATIVE Urine Urobilinogen 0.2 < = 1.0 MG/DL Urine Leukocyte Esterase NEGATIVE NEGATIVE Urine RBC (Auto) NEGATIVE NEGATIVE Urine RBC NONE /HPF Urine WBC NONE /HPF Urine Squamous Epithelial Cells 5-10 /HPF Urine Crystals NONE /LPF Urine Bacteria NEGATIVE /HPF Urine Casts NONE /LPF Urine Mucus NEGATIVE /LPF Urine Culture Indicated NO White Blood Count 5.1 4.3-11.0 10^3/uL Red Blood Count 4.48 3.80-5.11 10^6/uL Hemoglobin 11.2 L 11.5-16.0 g/dL Hematocrit 37 35-52 % Mean Corpuscular Volume 82 80-99 fL Mean Corpuscular Hemoglobin 25 25-34 pg Mean Corpuscular Hemoglobin Concent 31 L 32-36 g/dL Red Cell Distribution Width 18.4 H 10.0-14.5 % Platelet Count 183 130-400 10^3/uL Mean Platelet Volume 10.5 9.0-12.2 fL Immature Granulocyte % (Auto) 0 % Neutrophils (%) (Auto) 51 42-75 % Lymphocytes (%) (Auto) 35 12-44 % Monocytes (%) (Auto) 13 H 0-12 % Eosinophils (%) (Auto) 1 0-10 % Basophils (%) (Auto) 1 0-10 % Neutrophils # (Auto) 2.6 1.8-7.8 10^3/uL Lymphocytes # (Auto) 1.8 1.0-4.0 10^3/uL Monocytes # (Auto) 0.7 0.0-1.0 10^3/uL Eosinophils # (Auto) 0.1 0.0-0.3 10^3/uL Basophils # (Auto) 0.0 0.0-0.1 10^3/uL Immature Granulocyte # (Auto) 0.0 0.0-0.1 10^3/uL Sodium Level 136 135-145 MMOL/L Potassium Level 4.4 3.6-5.0 MMOL/L Chloride Level 106 98-107 MMOL/L Carbon Dioxide Level 23 21-32 MMOL/L Anion Gap 7 5-14 MMOL/L Blood Urea Nitrogen 9 7-18 MG/DL Creatinine 0.79 0.60-1.30 MG/DL Estimat Glomerular Filtration Rate 77 BUN/Creatinine Ratio 11 Glucose Level 94 70-105 MG/DL Calcium Level 9.3 8.5-10.1 MG/DL Corrected Calcium 9.5 8.5-10.1 MG/DL Total Bilirubin 0.4 0.1-1.0 MG/DL Aspartate Amino Transf (AST/SGOT) 21 5-34 U/L Alanine Aminotransferase (ALT/SGPT) 11 0-55 U/L Alkaline Phosphatase 111 40-136 U/L Total Protein 6.5 6.4-8.2 GM/DL Albumin 3.7 3.2-4.5 GM/DL My Orders Orders - COMPA BEAR APRN Ua Culture If Indicated (04/28/22 15:10) Cbc With Automated Diff (04/28/22 16:14) Comprehensive Metabolic Panel (04/28/22 16:14) Abdomen/Kub 1view (04/28/22 16:14) Vital Signs/I&O 04/28/22 04/28/22 15:13 17:36 Temp 35.9 Pulse 96 71 Resp 16 B/P (MAP) 138/83 (101) 160/84 Pulse Ox 98 99 O2 Delivery Room Air Progress Progress Note : Progress Note Patient presents to the emergency department for UTI like symptoms. Will check UA and determine further treatment from there. 1612: Spoke to patient in regards to UA being negative. Will obtain labs and XR to determine cause of abdominal pain. Patient agreeable to plan of care. Does not think that she is constipated at this time. 1727: Spoke to patient in regards to imaging and labs. Instructed that the XR did show that she was indeed constipated. Home treatments discussed with patient along with reasons to return to the ER. She reports that she has the medications she needs at home for constipation. Reasons to return to the ER were discussed with patient and she verbalized understanding. Diagnostic Imaging Diagonstic Imaging: Xray Plain Films/CT/US/NM/MRI: abdomen Comments NAME: YVETTE MCGOVERN MED REC#: [id number] PT STATUS: REG ER : 1945 PHYSICIAN: COMPA BEAR APRN ADMIT DATE: 04/28/22/ER Draft Date of Exam:04/28/22 ABDOMEN/KUB 1VIEW EXAM: Abdomen/KUB 1 view INDICATION: Abdominal pain. COMPARISON: None. FINDINGS: Nonspecific bowel gas pattern. Large amount of stool throughout the colon and rectum. Presumed epidural spinal stimulator pack. Postoperative changes in the lower lumbar spine and right hip. IMPRESSION: 1. Nonspecific bowel gas pattern. 2. Large amount of stool throughout the colon and rectum compatible with constipation. Dictated on workstation # [id number] Dict: 04/28/221703 Trans: 04/28/221705 [facility] [id number] Interpreted by: PEÑA ROSE MD Electronically signed by: Departure Impression Primary Impression: Constipation Qualified Codes: K59.00 - Constipation, unspecified Disposition: 01 HOME, SELF-CARE Condition: Stable Departure-Patient Inst. Decision time for Depature: 17:31 Referrals: CYNTHIA ALATORRE MD (PCP/Family) Primary Care Physician Patient Instructions: Constipation in Adults Add. Discharge Instructions: 1. Home and rest. 2. Push fluids. 3. Follow up with PCP as needed. 4. Your UA today was negative for infection. 5. Increase fiber in diet. 6. Return here if worse or concerns. COMPA BEAR APRN Apr 28, 2022 15:10
[2022-04-28 15:45] LABS: BILIRUBIN,URINE NEGATIVE (NEGATIVE); CLARITY,URINE CLEAR; COLOR,URINE YELLOW; GLUCOSE, URINE (UA) NEGATIVE (NEGATIVE); KETONES,URINE NEGATIVE (NEGATIVE); LEUKOCYTE ESTERASE ,URINE NEGATIVE (NEGATIVE); NITRITE,URINE NEGATIVE (NEGATIVE); PROTEIN,URINE NEGATIVE (NEGATIVE)
[2022-04-28 16:10] LABS: BACTERIA,URINE NEGATIVE /HPF
[2022-04-28 16:44] LABS: BASOPHILS % (AUTO) 1 % (0-10); EOSINOPHILS # (AUTO) 0.1 10^3/uL (0.0-0.3); EOSINOPHILS % (AUTO) 1 % (0-10); HEMATOCRIT 37 % (35-52); HEMOGLOBIN 11.2 g/dL (11.5-16.0); LYMPHOCYTES # (AUTO) 1.8 10^3/uL (1.0-4.0); LYMPHOCYTES % (AUTO) 35 % (12-44); MEAN CORPUSCULAR HEMOGLOBIN 25 pg (25-34); MEAN CORPUSCULAR HGB CONC 31 g/dL (32-36); MEAN CORPUSCULAR VOLUME 82 fL (80-99); MEAN PLATELET VOLUME 10.5 fL (9.0-12.2); MONOCYTES # (AUTO) 0.7 10^3/uL (0.0-1.0); MONOCYTES % (AUTO) 13 % (0-12); NEUTROPHILS # (AUTO) 2.6 10^3/uL (1.8-7.8); NEUTROPHILS % (AUTO) 51 % (42-75); PLATELET COUNT 183 10^3/uL (130-400); WHITE BLOOD COUNT 5.1 10^3/uL (4.3-11.0)
[2022-04-28 16:52] LABS: ALBUMIN 3.7 GM/DL (3.2-4.5); POTASSIUM 4.4 MMOL/L (3.6-5.0)
[2022-04-28 16:53] LABS: CALCIUM 9.3 MG/DL (8.5-10.1)
[2022-04-28 16:55] LABS: TOTAL PROTEIN 6.5 GM/DL (6.4-8.2)
[2022-04-28 16:56] LABS: BILIRUBIN,TOTAL 0.4 MG/DL (0.1-1.0)
[2022-04-28 16:58] LABS: CREATININE SERUM 0.79 MG/DL (0.60-1.30)
--- NOTE | 2022-04-28 17:07 | Diagnostic Imaging Report ---
EXAM: Abdomen/KUB 1 view INDICATION: Abdominal pain. COMPARISON: None. FINDINGS: Nonspecific bowel gas pattern. Large amount of stool throughout the colon and rectum. Presumed epidural spinal stimulator pack. Postoperative changes in the lower lumbar spine and right hip. IMPRESSION: 1. Nonspecific bowel gas pattern. 2. Large amount of stool throughout the colon and rectum compatible with constipation. Dictated by: Dictated on workstation # [id number]
[2022-04-28 17:36] VITALS: BP 160/84
== END 2022-04-28 17:36 | disposition home or self-care (01) ==
LOC: EDUNIT# 15:01 → ER 15:02
DX: K59.00 Constipation, unspecified (principal)
CPT/HCPCS: 36415; 74018; 80053; 81000; 85025

== ENCOUNTER → 2022-05-26 | Outpatient (CLI) | payer MEDICARE, MEDICAID ==
[~2022-05-26] MED LIST changes: +ALBU8.5H6 INH; +HEParin (CENTRAL IV FLUSH) 500 UNIT/5 ML SYR ONE; +ONDA8TAB13 SL; -RT-ALBUINH INH
[2022-05-26 17:04] LABS: HEMATOCRIT 36 % (35-52); HEMOGLOBIN 11.1 g/dL (11.5-16.0); MEAN CORPUSCULAR HEMOGLOBIN 25 pg (25-34); MEAN CORPUSCULAR HGB CONC 31 g/dL (32-36); MEAN CORPUSCULAR VOLUME 81 fL (80-99); PLATELET COUNT 181 10^3/uL (130-400); WHITE BLOOD COUNT 4.9 10^3/uL (4.3-11.0)
== END ==
LOC: LAB 16:28
PROVIDERS: ATTEND Nurse Practitioner Family
DX: T81.41XA Infection following a procedure, superficial incisional surgical site, initial encounter (principal); G89.18 Other acute postprocedural pain; M54.9 Dorsalgia, unspecified
CPT/HCPCS: 36415; 85027

== ENCOUNTER 2022-05-28 12:49 | Emergency (ER) | payer MEDICARE, MEDICAID ==
[~2022-05-28] VITALS: Ht 160 cm; Wt 86.0 kg
[~2022-05-28 12:49] MED LIST changes: -HEParin (CENTRAL IV FLUSH) 500 UNIT/5 ML SYR ONE; -ONDA8TAB13 SL
--- NOTE | 2022-05-28 14:11 | ED Back Pain ---
General Chief Complaint: Back Problems Stated Complaint: RIGHT LOWER BACK PAIN Nursing Triage Note: PT IS BROUGHT TO ED FOR RIGHT SIDED BACK PAIN X'S ONE WEEK. PER PT SHE HAD HER SPINAL CORD STIMULATOR ,OF SEVEN YEARS, REMOVED ON 05/09/22. PT REPORTS SHE GETS A SHARP PAIN WITH WALKING. PT BROUGHT TO ROOM 06 VIA . Source of Information: Patient, Family Exam Limitations: No Limitations History of Present Illness Date Seen by Provider: May 28, 2022 Time Seen by Provider: 13:45 Initial Comments Patient is a 77-year-old female who presents to the emergency department with a chief complaint of right lower lumbar sharp back pain onset over the last several weeks. She states she had a spinal cord stimulator removed by Dr. ANDERSON from [facility] on May 09. She states ever since it was removed she gets a sharp pain in her low back with walking and with sitting at 90 degrees and pushing back into her recliner chair. The pain is nonradiating. She states it feels like it is going to "kill her" ". No nausea or vomiting. No abdominal pain. No swelling in the area of redness or rashes. She denies numbness tingling or weakness to her lower extremities. No incontinence of bowel or bladder. She takes hydrocodone at home which helps "a little bit". She did have some blood work done here on May 26 and was supposed to follow-up to get an ultrasound of the area to help assess for foreign body. She is hopeful she can get an ultrasound here at [facility] today. I did explain to her and the family that we do not have ultrasound available except for emergencies that fall into certain categories and they would not come in to assess for foreign body. I reviewed the lab work obtained on 05-26-2022. All she had ordered was a CBC. It was normal. Discussed further evaluation with the family, we will obtain a CRP and sed rate for Dr. ANDERSON to review when she follows up on Monday. Will add some nausea medications to her at home pain medicine regimen. She is requesting some pain medicine today we will give her some fentanyl as it has worked for her in the past as well as a hydrocodone. Her last dose was at 9 AM this morning Location: Lumbar Spine Timing/Duration: 1 Week Severity: Moderate Pain/Injury Location: Back Modifying Factors: Improves With Other (leaning back against a chair intensifies the sharp pain) Associated Symptoms: denies symptoms Allergies and Home Medications Allergies Coded Allergies: hydromorphone (Verified Allergy, Mild, "POISONS HER SYSTEM", 03/22/19) morphine (Verified Allergy, Mild, "POISONS HER SYSTEM", 03/22/19) Patient Home Medication List Home Medication List Reviewed: Yes Albuterol Sulfate (Ventolin Hfa) 1 Puff Puff, 2 PUFF INH Q6H PRN for SHORTNESS OF BREATH, (Reported) Entered as Reported by: HAZEL KEENE on 03/30/21830 Aspirin (Aspirin EC) 81 Mg Tablet.dr, 81 MG PO DAILY, (Reported) Entered as Reported by: HAZEL KEENE on 03/30/21830 Cephalexin (Cephalexin) 500 Mg Tablet, 500 MG PO TID Prescribed by: SAVITA SONG on 02/08/22 185 Estradiol (Estradiol) 0.01 % Cream.appl, 42.5 GM VG UD, (Reported) Entered as Reported by: SARAH MCKEON on 12/29/21 142 Fluticasone Propionate (Flonase Allergy Relief) 9.9 Ml Melfa.susp, 1 SPRAY NS DAILY PRN for ALLERGIES, (Reported) Entered as Reported by: HAZEL KEENE on 03/30/21830 Hydrocodone/Acetaminophen (Hydrocodone-Acetamin 5-325 mg) 1 Each Tablet, 1 TAB PO Q8H PRN for PAIN-MODERATE (5-7), (Reported) Entered as Reported by: HAZEL KEENE on 03/30/21830 Lisinopril (Lisinopril) 20 Mg Tablet, 20 MG PO DAILY, (Reported) Entered as Reported by: HAZEL KEENE on 03/30/21830 Nitrofurantoin Macrocrystal (Nitrofurantoin) 100 Mg Capsule, 100 MG PO DAILY, (Reported) Entered as Reported by: SARAH MCKEON on 12/29/21 142 Pantoprazole Sodium (Pantoprazole Sodium) 40 Mg Tablet.dr, 40 MG PO BID, (Reported) Entered as Reported by: DELMA DIANE on 08/16/17 1640 Sucralfate (Sucralfate) 1 Gram Tablet, 1 GM PO ACHS, (Reported) Entered as Reported by: SARAH MCKEON on 12/29/21 1425 Sumatriptan Succinate (Sumatriptan Succinate) 100 Mg Tablet, 100 MG PO UD PRN for HEADACHE, (Reported) Entered as Reported by: HAZEL KEENE on 03/30/21 0831 Tolterodine Tartrate (Tolterodine Tartrate ER) 4 Mg Cap.er.24h, 4 MG PO BID, (Reported) Entered as Reported by: NATHANIEL LEÓN on 04/07/20 1434 Review of Systems Constitutional: see HPI Cardiovascular: no symptoms reported Gastrointestinal: no symptoms reported Genitourinary: no symptoms reported Musculoskeletal: back pain Skin: no symptoms reported All Other Systems Reviewed Negative Unless Noted: Yes Past Nuueowv-Arjcdx-Uxrdtx Hx Patient Social History Tobacco Use?: No Substance use?: No Alcohol Use?: No Pt feels they are or have been: No Immunizations Up To Date Tetanus Booster (TDap): More than 5yrs PED Vaccines UTD: No First/Initial COVID19 Vaccinat: 2020 Second COVID19 Vaccination Bernabe: 2020 Third COVID19 Vaccination Date: NO 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 SURGERY; SPINAL CORD STIMULATOR REMOVED 05/09/22, SPINAL STIMULATER PLACED 2014, RIGHT KNEE REPAIR, AND MULTIPLE BACK SURGIES. 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 Sexually Transmitted Disease: No HIV/AIDS: No Genitourinary: Yes UTI-Chronic Gastrointestinal: Yes (CHRONIC CONSTIPATION; REFLUX ; HERNIA REPAIR) Gastroesophageal Reflux, Polyps, Esophagitis Musculoskeletal: Yes Arthritis, Chronic Back Pain, Fractures Endocrine: No HEENT: Yes (S/P CATARACT SURGERY) Cataract Loss of Vision: Bilateral Hearing Impairment: Denies Cancer: No Psychosocial: No Integumentary: No Blood Disorders: No Adverse Reaction/Blood Tranf: No (N/A) Family Medical History Cancer 03 FATHER Cataract 03 MOTHER Chest pain 03 MOTHER Family history: Arthritis 03 MOTHER Family history: Asthma 09 BROTHER Family history: Cardiovascular disease 03 MOTHER Family history: Hypertension 03 MOTHER Family history: Osteoporosis 03 MOTHER History of - respiratory disease 09 BROTHER Hypercholesterolemia 03 MOTHER Visual impairment 03 MOTHER No Family History of: Abdominal aortic aneurysm Nick's disease Alcoholism Aphasia Cancer of colon Congenital heart disease Congestive heart failure Cystic fibrosis Dementia Dysphagia Family history: Allergy Family history: Alzheimer's disease Family history: Breast disease Family history: Coronary thrombosis Family history: Diabetes mellitus Family history: Gastrointestinal disease Family history: Glaucoma Family history: Thyroid disorder Headache Hearing loss Heart disease Hereditary disease History of - anemia History of - disorder History of drug abuse Human immunodeficiency virus (HIV) seropositivity Infertile Kidney disease Malignant neoplasm of lung Myocardial infarction Parkinson's disease Prostate cancer Psychotic disorder Seizure disorder Stroke Tuberculosis Physical Exam Vital Signs Vital Signs - First Documented 05/28/22 13:16 Temp 36.4 Pulse 87 Resp 18 B/P (MAP) 106/75 (85) Pulse Ox 97 O2 Delivery Room Air Capillary Refill : Less Than 3 Seconds Height, Weight, BMI Height: 5'4.00" Weight: 200lbs. 0.0oz. 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 The area to the lateralmost aspect of the right lower lumbar spine has an intact suture line with overlying Steri-Strips. No warmth, redness or tenderness at the site. I did use bedside ultrasound to examine the immediate subcu tissues. No pocket of fluid was identified consistent with abscess, seroma. It is difficult to reproduce the "sharp" sensation that she feels when she is sitting or laying. No obvious foreign body.) Progress/Results/Core Measures Results/Orders Lab Results Laboratory Tests Test 05/28/22 14:22 Range/Units My Orders Orders - EMILY HAMILTON MD Hs C Reactive Protein (05/28/22 14:06) Erythrocyte Sedimentation Rate (05/28/22 14:06) Fentanyl Inj (Sublimaze Injection) (05/28/22 14:15) Hydrocodone/Apap 5/325 Tablet (Lortab 5 (05/28/22 14:15) Ondansetron Oral Dissolve Tab (Zofran (05/28/22 14:15) Medications Given in ED Current Medications Medications Dose Ordered Sig/Reed Route Start Time Stop Time Status Last Admin Dose Admin Acetaminophen/ Hydrocodone Bitart 1 ea ONCE ONCE PO 05/28/22 14:15 05/28/22 14:16 DC 05/28/22 14:23 1 EA Fentanyl Citrate 50 mcg ONCE ONCE IM 05/28/22 14:15 05/28/22 14:16 DC 05/28/22 14:25 50 MCG Ondansetron HCl 4 mg ONCE ONCE PO 05/28/22 14:15 05/28/22 14:16 DC 05/28/22 14:22 4 MG Vital Signs/I&O 05/28/22 13:16 Temp 36.4 Pulse 87 Resp 18 B/P (MAP) 106/75 (85) Pulse Ox 97 O2 Delivery Room Air Blood Pressure Mean: 85 Progress Progress Note : Time: 14:37 Progress Note Discussed plan of care with patient and family. Recommend she continue her hydrocodone, she can increase to 1-1/2 tablets every 6 hours as needed. She could also take 1 hydrocodone and 1 plain Tylenol tablet which may help. She is requesting some nausea medication for home. She will follow-up with Dr. ANDERSON on Monday. I have told her that these inflammatory markers will be available for his review on Monday as well. Return precautions provided to include fever, redness, swelling or any new constitutional symptoms of concern. Family verbalized understanding. All questions are sought and answered. Departure Impression Primary Impression: Back pain Qualified Codes: M54.50 - Low back pain, unspecified Disposition: 01 HOME, SELF-CARE Condition: Stable Departure-Patient Inst. Decision time for Depature: 14:38 Referrals: CYNTHIA ALATORRE MD (PCP/Family) Primary Care Physician Patient Instructions: Wound Care ED Add. Discharge Instructions: Keep an eye on the wounds on your back. Monitor for redness, swelling, rashes. You can take your hydrocodone with 1 extra strength Tylenol at the same time zelda ry 6 hours as needed for pain. OR You could also take 1 hydrocodone plus another half tablet every 6 hours as needed for pain. Moist heat may help with discomfort to your back. You could try an pcwv-lhe-lpezjzj lidocaine patch over the area of pain. These are available at your pharmacy. If you develop redness, swelling, rash please come back to the emergency room for reevaluation. We have added "inflammatory marker" blood work today. Dr. Anderson's office can call [facility] on Monday to get these results. I have sent a prescription for Zofran, 8 mg tablets these are orally dissolving. You can take 1 every 8 hours as needed for upset stomach. Scripts Ondansetron (Ondansetron Odt) 8 Mg Tab.rapdis 8 MG SL Q8H PRN for NAUSEA/VOMITING, #10 TAB Prov: EMILY HAMILTON MD 05/28/22 Copy Copies To 1: CYNTHIA ALATORRE MD, KATHRYN M MD May 28, 2022 14:11
[2022-05-28] MEDS ORDERED: HYDROcodone/APAP 5 MG/325 MG (LORTAB) TAB PO ONE (14:15)
[2022-05-28] MEDS ORDERED: ONDANSETRON 4 MG (ZOFRAN) ORAL DISSOLVE TAB PO ONE (14:15)
[2022-05-28] MEDS ORDERED: fentaNYL INJ 100 MCG/2 ML AMP IM ONE (14:15)
[2022-05-28] MEDS ORDERED: ONDA8TAB13 SL (14:41)
[2022-05-28 14:48] VITALS: BP 122/81
== END 2022-05-28 14:48 | disposition home or self-care (01) ==
LOC: EDUNIT# 12:49 → ER 12:52
DX: M54.50 Low back pain, unspecified (principal); Z98.890 Other specified postprocedural states; Z88.5 Allergy status to narcotic agent
CPT/HCPCS: 36415; 85652; 86141; 99284

== ENCOUNTER 2022-08-31 05:32 | Outpatient (CLI) | payer MEDICARE, MEDICAID ==
[~2022-08-31] VITALS: Ht 162.6 cm; Wt 88.3 kg
[~2022-08-31 05:32] MED LIST changes: +ONDA8TAB13 SL
[2022-08-31] MEDS ORDERED: FLUC100T10 PO (11:05)
== END 2022-08-31 11:06 ==
LOC: PREOP 05:32
PROVIDERS: ATTEND Surgery
DX: Z01.818 Encounter for other preprocedural examination (principal)

== ENCOUNTER 2022-09-13 07:59 | Day surgery (SDC) | payer MEDICARE, MEDICAID ==
[~2022-09-13] VITALS: Ht 162.6 cm; Wt 88.3 kg
[~2022-09-13 07:59] MED LIST changes: +FLUC100T10 PO
[2022-09-13] MEDS ORDERED: LACTATED RINGERS 1,000 ML IV STA (08:11)
[2022-09-13] MEDS ORDERED: HURRICAINE EXT TUBE (BENZOCAINE) XX PRN (08:15)
[2022-09-13 08:45] VITALS: BP 129/84
[2022-09-13] MEDS ORDERED: FAMOTIDINE 20MG/2ML IV (PEPCID) ONE (08:54)
[2022-09-13] MEDS ORDERED: proPOfol 200 MG/20 ML (DIPRIVAN) VIAL IV ONE (09:31)
[2022-09-13 09:45] VITALS: BP 126/58
--- NOTE | 2022-09-13 09:48 | Discharge Inst-Simple/Standard ---
Discharge Inst-Standard Patient Instructions/Follow Up Plan of Care/Instructions/FU: follow up with Mark in 2 weeks Activity as Tolerated: Yes Discharge Diet: No Restrictions EZRA CRUZ DO Sep 13, 2022 09:48
[2022-09-13 09:50] VITALS: BP 124/64
--- NOTE | 2022-09-13 09:50 | Progress Note-Post Operative ---
Post-Operative Progess Note Surgeon (s)/Commercial Lines Account Assistant (s) Surgeon EZRA CRUZ DO Commercial Lines Account Assistant: N/A Pre-Operative Diagnosis gerd, epigastric pain Post-Operative Diagnosis Hiatal Hernia Procedure & Operative Findings Date of Procedure 09/13/22 Procedure Performed/Findings EGD w/ Biopsies Anesthesia Type per AMMONIA PRINT OPERATOR Estimated Blood Loss Estimated blood loss (mL): None Specimens/Packing Specimens Removed Antral, Body, GEJ EZRA CRUZ DO Sep 13, 2022 09:50
[2022-09-13 09:55] VITALS: BP 126/66
[2022-09-13 10:31] VITALS: BP 126/66
--- NOTE | 2022-09-13 13:21 | OPERATIVE REPORT ---
DATE OF SERVICE: 09/13/2022 PREOPERATIVE DIAGNOSIS: Gastroesophageal reflux disease. POSTOPERATIVE DIAGNOSES: Hiatal hernia, gastritis. PROCEDURE: EGD with biopsy. SURGEON: Ezra Flores DO ANESTHESIA: Per INVENTORY MANAGEMENT SPECIALIST. ESTIMATED BLOOD LOSS: Scant. COMPLICATIONS: None. INDICATIONS: The patient is a 77-year-old female with GERD symptoms. She understands risks and benefits of procedure and wishes to proceed. Consent was signed in chart. DESCRIPTION OF PROCEDURE: The patient was taken to the endoscopy suite, placed in left lateral recumbent position. Timeout was performed. Scope was inserted in the mouth, down the esophagus, stomach and duodenum without difficulty. No polyps, masses or ulcerations within the duodenum. Scope was slowly retracted back to the stomach where it was further insufflated. Gastritis appearance. Biopsy of the antrum and body were obtained. Scope was retroflexed noting a moderate hiatal hernia, no other pathology. Scope was returned to its normal position, slowly withdrawn until distal esophagus. Biopsy of GE junction was obtained. No polyps, masses or ulcerations. Scope was slowly retracted back until completely removed. The patient tolerated the procedure well without any complications, taken to recovery room in stable condition. RECOMMENDATIONS: The patient will await biopsy results. Continue current medications. The patient will follow up in 2 weeks. Job ID: [id number] DocumentID: [id number] Dictated Date: 09/13/2022 09:48:45 Mold Changer Date: 09/13/2022 13:20:00 Dictated By: EZRA FLORES DO
--- NOTE | 2022-09-13 14:57 | Anesthesia-General Post-Op ---
MAC Patient Condition Mental Status/LOC: Same as Preop Cardiovascular: Satisfactory Nausea/Vomiting: Absent Respiratory: Satisfactory Pain: Controlled Complications: Absent Post Op Complications Complications None Follow Up Care/Instructions Patient Instructions None needed. Anesthesiology Discharge Order Discharge Order Patient is doing well, no complaints, stable vital signs, no apparent adverse anesthesia problems. No complications reported per nursing. SHARRON PADGETT CRNA Sep 13, 2022 14:57
== END 2022-09-13 10:29 | disposition home or self-care (01) ==
LOC: ENDO 07:59
PROVIDERS: ATTEND Surgery
DX: K29.70 Gastritis, unspecified, without bleeding (principal); K44.9 Diaphragmatic hernia without obstruction or gangrene; K21.00 Gastro-esophageal reflux disease with esophagitis, without bleeding; K31.89 Other diseases of stomach and duodenum; E66.9 Obesity, unspecified; Z87.891 Personal history of nicotine dependence; Z68.33 Body mass index [BMI] 33.0-33.9, adult

== ENCOUNTER → 2022-12-21 | Outpatient (CLI) | payer MEDICARE, MEDICAID ==
[~2022-12-21] VITALS: Ht 160 cm; Wt 88.3 kg
[~2022-12-21] MED LIST changes: +CATHETER FLUSH 10 ML SYR IVP PRN; +HEParin (CENTRAL IV FLUSH) 500 UNIT/5 ML SYR IV ONE
[2022-12-21 13:58] VITALS: BP 113/77
== END ==
LOC: SDC 13:21
PROVIDERS: ATTEND Family Medicine
DX: Z45.2 Encounter for adjustment and management of vascular access device (principal)
CPT/HCPCS: 96523

== ENCOUNTER → 2023-01-18 | Outpatient (CLI) | payer MEDICARE, MEDICAID ==
[~2023-01-18] VITALS: Ht 160 cm; Wt 88.3 kg
[~2023-01-18] MED LIST changes: -CATHETER FLUSH 10 ML SYR IVP PRN; +HEParin (CENTRAL IV FLUSH) 500 UNIT/5 ML SYR ONE
[2023-01-18 12:27] VITALS: BP 127/66
== END ==
LOC: SDC 12:04
PROVIDERS: ATTEND Family Medicine
DX: Z45.2 Encounter for adjustment and management of vascular access device (principal)
CPT/HCPCS: 96523

== ENCOUNTER 2023-02-06 09:10 | Emergency (ER) | payer MEDICARE, MEDICAID ==
[~2023-02-06] VITALS: Ht 160 cm; Wt 86.0 kg
[~2023-02-06 09:10] MED LIST changes: -HEParin (CENTRAL IV FLUSH) 500 UNIT/5 ML SYR IV ONE; -HEParin (CENTRAL IV FLUSH) 500 UNIT/5 ML SYR ONE
--- NOTE | 2023-02-06 09:12 | ED Lower Extremity ---
General Stated Complaint: LT KNEE PAIN History of Present Illness Date Seen by Provider: Feb 06, 2023 Time Seen by Provider: 09:12 Initial Comments 77-year-old female presents with left knee pain. Patient reports that she has had a knee replacement about 18 years ago. She reports that this morning she went to the restroom and when did all her normal routines. Then she just developed some pain and difficulty ambulating due to the pain. She does report she has a walker and a wheelchair at home. No reports of fevers chills nausea or vomiting.. She has a mild ecchymosis on the medial aspect Allergies and Home Medications Allergies Coded Allergies: hydromorphone (Verified Adverse Reaction, Mild, "POISONS HER SYSTEM" has taken Tylenol w/Codeine & Lortab, 06/07/22) has taken Tylenol w/Codeine & Lortab multiple times morphine (Verified Adverse Reaction, Mild, "POISONS HER SYSTEM" has taken Tylenol w/Codeine & Lortab, 06/07/22) has taken Tylenol w/Codeine & Lortab multiple times Patient Home Medication List Home Medication List Reviewed: Yes Albuterol Sulfate (Ventolin Hfa) 1 Puff Puff, 2 PUFF INH Q6H PRN for SHORTNESS OF BREATH, (Reported) Entered as Reported by: HAZEL KEENE on 03/30/21830 Aspirin (Aspirin EC) 81 Mg Tablet.dr, 81 MG PO DAILY, (Reported) Entered as Reported by: HAZEL KEENE on 03/30/21830 Estradiol (Estradiol) 0.01 % Cream.appl, 42.5 GM VG UD, (Reported) Entered as Reported by: SARAH MCKEON on 12/29/21 1425 Fluconazole (Fluconazole) 100 Mg Tablet, 100 MG PO DAILY, (Reported) Entered as Reported by: SARAH MCKEON on 08/31/22 1105 Hydrocodone/Acetaminophen (Hydrocodone-Acetamin 5-325 mg) 1 Each Tablet, 1 TAB PO Q8H PRN for PAIN-MODERATE (5-7), (Reported) Entered as Reported by: HAZEL KEENE on 03/30/21830 Lisinopril (Lisinopril) 20 Mg Tablet, 20 MG PO DAILY, (Reported) Entered as Reported by: HAZEL KEENE on 9/7/21 0831 Ondansetron (Ondansetron Odt) 8 Mg Tab.rapdis, 8 MG SL Q8H PRN for NAUSEA/VOMITING Prescribed by: EMILY HAMILTON on 05/28/22 1441 Pantoprazole Sodium (Pantoprazole Sodium) 40 Mg Tablet.dr, 40 MG PO BID, (Reported) Entered as Reported by: DELMA DIANE on 08/16/17 1640 Sucralfate (Sucralfate) 1 Gram Tablet, 1 GM PO ACHS, (Reported) Entered as Reported by: SARAH MCKEON on 12/29/21 1425 Sumatriptan Succinate (Sumatriptan Succinate) 100 Mg Tablet, 100 MG PO UD PRN for HEADACHE, (Reported) Entered as Reported by: HAZEL KEENE on 03/30/21 0831 Tolterodine Tartrate (Tolterodine Tartrate ER) 4 Mg Cap.er.24h, 4 MG PO BID, (Reported) Entered as Reported by: NATHANIEL LEÓN on 04/07/20 1434 Review of Systems Constitutional: No chills, No fever EENTM: no symptoms reported Respiratory: no symptoms reported Cardiovascular: no symptoms reported Gastrointestinal: no symptoms reported Musculoskeletal: see HPI Skin: see HPI Physical Exam Vital Signs Vital Signs - First Documented 02/06/23 09:10 Temp 36.8 Pulse 80 Resp 20 B/P (MAP) 146/76 (99) Pulse Ox 100 Capillary Refill : Height, Weight, BMI Height: '" Weight: lbs. oz. kg; BMI Method: General Appearance: WD/WN, no apparent distress Cardiovascular: normal peripheral pulses, regular rate, rhythm Respiratory: lungs clear, normal breath sounds Gastrointestinal: non tender, soft Hips: bilateral hip non-tender Legs: bilateral leg non-tender, bilateral leg normal inspection Knees: left knee ecchymosis (Medial aspect), left knee soft tissue tenderness Neurologic/Psychiatric: alert, normal mood/affect, oriented x 3 Skin: ecchymosis Progress/Results/Core Measures Results/Orders Lab Results Laboratory Tests Test 02/06/23 10:13 Range/Units White Blood Count 4.4 4.3-11.0 10^3/uL Red Blood Count 4.11 3.80-5.11 10^6/uL Hemoglobin 10.7 L 11.5-16.0 g/dL Hematocrit 35 35-52 % Mean Corpuscular Volume 84 80-99 fL Mean Corpuscular Hemoglobin 26 25-34 pg Mean Corpuscular Hemoglobin Concent 31 L 32-36 g/dL Red Cell Distribution Width 17.2 H 10.0-14.5 % Platelet Count 153 130-400 10^3/uL Mean Platelet Volume 10.4 9.0-12.2 fL Immature Granulocyte % (Auto) 0 % Neutrophils (%) (Auto) 53 42-75 % Lymphocytes (%) (Auto) 30 12-44 % Monocytes (%) (Auto) 13 H 0-12 % Eosinophils (%) (Auto) 3 0-10 % Basophils (%) (Auto) 1 0-10 % Neutrophils # (Auto) 2.3 1.8-7.8 10^3/uL Lymphocytes # (Auto) 1.3 1.0-4.0 10^3/uL Monocytes # (Auto) 0.6 0.0-1.0 10^3/uL Eosinophils # (Auto) 0.1 0.0-0.3 10^3/uL Basophils # (Auto) 0.0 0.0-0.1 10^3/uL Immature Granulocyte # (Auto) 0.0 0.0-0.1 10^3/uL Sodium Level 139 135-145 MMOL/L Potassium Level 4.1 3.6-5.0 MMOL/L Chloride Level 109 H 98-107 MMOL/L Carbon Dioxide Level 22 21-32 MMOL/L Anion Gap 8 5-14 MMOL/L Blood Urea Nitrogen 12 7-18 MG/DL Creatinine 0.81 0.60-1.30 MG/DL Estimat Glomerular Filtration Rate 74 BUN/Creatinine Ratio 15 Glucose Level 78 70-105 MG/DL Calcium Level 9.4 8.5-10.1 MG/DL Corrected Calcium 9.7 8.5-10.1 MG/DL Total Bilirubin 0.5 0.1-1.0 MG/DL Aspartate Amino Transf (AST/SGOT) 18 5-34 U/L Alanine Aminotransferase (ALT/SGPT) 12 0-55 U/L Alkaline Phosphatase 101 40-136 U/L C-Reactive Protein High Sensitivity 0.71 H 0.00-0.50 MG/DL Total Protein 6.0 L 6.4-8.2 GM/DL Albumin 3.6 3.2-4.5 GM/DL My Orders Orders - PILLO SEALS DO Cbc With Automated Diff (02/06/23 09:19) Comprehensive Metabolic Panel (02/06/23 09:19) Hs C Reactive Protein (02/06/23 09:19) Knee, Left, 3 Views (02/06/23 09:19) Vital Signs/I&O 02/06/23 09:10 Temp 36.8 Pulse 80 Resp 20 B/P (MAP) 146/76 (99) Pulse Ox 100 Progress Progress Note : Progress Note Patient's diagnostic studies were ordered reviewed and interpreted by me. Patient had just a very minimal elevated CRP otherwise normal labs with no significant findings. Patient's knee x-ray was ordered reviewed with initial interpretation negative by me with final interpretation per radiology report. Patient is not having any weakness per se but complains more of not been walking due to pain. Patient is scheduled to have an injection in her right knee tomor row. I discussed with her that we will give her a shot of Toradol and provide her with some anti-inflammatories but at this time no further work-up is indicated. She does have some very minor swelling and mild ecchymosis on the medial aspect so I suspect she has a mild contusion from an unknown cause of bumping her knee or similar type injury. Patient should follow-up with her [facility] care provider in a couple days if symptoms or not improving. She is stable and discharged home Diagnostic Imaging Diagonstic Imaging: Xray Plain Films/CT/US/NM/MRI: knee Comments Date of Exam:02/06/23 KNEE, LEFT, 3 VIEWS INDICATION: Left knee pain. AP and oblique and lateral views left knee are obtained. FINDINGS: Left knee prosthesis is noted in good alignment. There is no sign of fracture or overt device loosening. There is no acute bony abnormality. IMPRESSION: Well aligned left knee prosthesis with no overt acute abnormality. Dictated by: Reviewed: Reviewed by Me, Reviewed/Discussed Departure Impression Primary Impression: Pain in left knee Qualified Codes: M25.562 - Pain in left knee Disposition: HOME, SELF-CARE Condition: Stable Departure-Patient Inst. Add. Discharge Instructions: 4% topical lidocaine with menthol cream or gel use on left knee as needed. Voltaren/diclofenac cream or gel use of the left knee as needed. Follow-up with your primary care provider and 4 to 5 days if symptoms or not improving or if they continue to worsen. Scripts Naproxen (Naprosyn) 500 Mg Tablet 500 MG PO BID, #30 TAB 0 Refills Prov: PILLO SEALS DO 02/06/23 PILLO SEALS DO Feb 06, 2023 09:12
--- NOTE | 2023-02-06 09:46 | Diagnostic Imaging Report ---
INDICATION: Left knee pain. AP and oblique and lateral views left knee are obtained. FINDINGS: Left knee prosthesis is noted in good alignment. There is no sign of fracture or overt device loosening. There is no acute bony abnormality. IMPRESSION: Well aligned left knee prosthesis with no overt acute abnormality. Dictated by: Dictated on workstation # [id number]
[2023-02-06 10:20] LABS: BASOPHILS % (AUTO) 1 % (0-10); EOSINOPHILS # (AUTO) 0.1 10^3/uL (0.0-0.3); EOSINOPHILS % (AUTO) 3 % (0-10); HEMATOCRIT 35 % (35-52); HEMOGLOBIN 10.7 g/dL (11.5-16.0); LYMPHOCYTES # (AUTO) 1.3 10^3/uL (1.0-4.0); LYMPHOCYTES % (AUTO) 30 % (12-44); MEAN CORPUSCULAR HEMOGLOBIN 26 pg (25-34); MEAN CORPUSCULAR HGB CONC 31 g/dL (32-36); MEAN CORPUSCULAR VOLUME 84 fL (80-99); MEAN PLATELET VOLUME 10.4 fL (9.0-12.2); MONOCYTES # (AUTO) 0.6 10^3/uL (0.0-1.0); MONOCYTES % (AUTO) 13 % (0-12); NEUTROPHILS # (AUTO) 2.3 10^3/uL (1.8-7.8); NEUTROPHILS % (AUTO) 53 % (42-75); PLATELET COUNT 153 10^3/uL (130-400); WHITE BLOOD COUNT 4.4 10^3/uL (4.3-11.0)
[2023-02-06 10:30] LABS: ALBUMIN 3.6 GM/DL (3.2-4.5); POTASSIUM 4.1 MMOL/L (3.6-5.0)
[2023-02-06 10:31] LABS: CALCIUM 9.4 MG/DL (8.5-10.1)
[2023-02-06 10:35] LABS: BILIRUBIN,TOTAL 0.5 MG/DL (0.1-1.0)
[2023-02-06 10:37] LABS: CREATININE SERUM 0.81 MG/DL (0.60-1.30)
[2023-02-06] MEDS ORDERED: KETOROLAC 30 MG/ML VIAL IM STA (10:49)
[2023-02-06] MEDS ORDERED: NAPR-1071 PO (10:54)
[2023-02-06 11:25] VITALS: BP 114/65
== END 2023-02-06 11:25 | disposition home or self-care (01) ==
LOC: EDUNIT# 09:10 → ER 09:12
DX: M25.562 Pain in left knee (principal); M79.89 Other specified soft tissue disorders; R58 Hemorrhage, not elsewhere classified; R79.82 Elevated C-reactive protein (CRP); Z96.652 Presence of left artificial knee joint
CPT/HCPCS: 36415; 73562; 80053; 85025; 86141

== ENCOUNTER → 2023-03-01 | Outpatient (CLI) | payer MEDICARE, MEDICAID ==
[~2023-03-01] MED LIST changes: +HEParin (CENTRAL IV FLUSH) 500 UNIT/5 ML SYR IV ONE; +HEParin (CENTRAL IV FLUSH) 500 UNIT/5 ML SYR ONE; +NAPR-1071 PO
[2023-03-01 12:55] VITALS: BP 99/65
== END ==
LOC: SDC 12:49
PROVIDERS: ATTEND Family Medicine
DX: Z45.2 Encounter for adjustment and management of vascular access device (principal)
CPT/HCPCS: 96523

== ENCOUNTER 2023-04-04 12:22 | Outpatient (CLI) | payer MEDICARE, MEDICAID ==
[~2023-04-04] VITALS: Ht 160 cm; Wt 86.0 kg
[~2023-04-04 12:22] MED LIST changes: -HEParin (CENTRAL IV FLUSH) 500 UNIT/5 ML SYR IV ONE; -HEParin (CENTRAL IV FLUSH) 500 UNIT/5 ML SYR ONE
[2023-04-04] MEDS ORDERED: HEParin (CENTRAL IV FLUSH) 500 UNIT/5 ML SYR ONE (12:40)
[2023-04-04 12:55] VITALS: BP 112/72
[2023-04-04] MEDS ORDERED: HEParin (CENTRAL IV FLUSH) 500 UNIT/5 ML SYR IV ONE (13:15)
== END 2023-04-04 12:55 | disposition home or self-care (01) ==
LOC: SDC 12:22
PROVIDERS: ATTEND Family Medicine
DX: Z45.2 Encounter for adjustment and management of vascular access device (principal)
CPT/HCPCS: 96523

== ENCOUNTER → 2023-05-02 | Outpatient (CLI) | payer MEDICARE, MEDICAID ==
--- NOTE | 2023-05-02 14:04 | Diagnostic Imaging Report ---
PROCEDURE: US Gallbladder. TECHNIQUE: Multiple real-time grayscale images were obtained over the right upper quadrant in various projections. INDICATION: Epigastric pain. COMPARISON: None. FINDINGS: The liver is normal in size, shape and echo texture. There are no focal lesions. Portal vein shows hepatopetal flow. No intra or extrahepatic biliary dilatation is present. The common bile duct is not dilated and measures 4 mm. There is no evidence of cholelithiasis, gallbladder wall thickening, or pericholecystic fluid. The visualized portions of the head and proximal body of the pancreas are within normal limits. The distal body and tail of the pancreas are not visualized due to overlying bowel gas. There is no ascites. The right kidney measures approximately 9 cm in length and has a normal appearance. The visualized portions of the IVC and aorta are normal. IMPRESSION: No cholelithiasis or sonographic evidence of acute cholecystitis. Negative liver/gallbladder sonogram. Dictated by: Dictated on workstation # [id number]
== END ==
LOC: RAD 12:46
PROVIDERS: ATTEND Surgery
DX: R10.13 Epigastric pain (principal)
CPT/HCPCS: 76705

== ENCOUNTER → 2023-05-10 | Outpatient (CLI) | payer MEDICARE, MEDICAID ==
[~2023-05-10] MED LIST changes: +morphine INJ 4 MG/ML 1 ML (VIAL/SYRINGE) ONE
--- NOTE | 2023-05-10 12:27 | Diagnostic Imaging Report ---
Indication: Epigastric pain. Patient was administered 5.4 mCi technetium 99m Choletec intravenously and imaging over the abdomen was performed. After 60 minutes, the gallbladder was nonvisualized; therefore, 2.0 mg morphine sulfate was administered and additional imaging was performed. There is homogeneous uptake of activity throughout the liver. There is prompt excretion of activity into the common duct with passage into the small bowel. After morphine administration the gallbladder was visualized. IMPRESSION: Cystic duct and common bile duct patency. Dictated by: Dictated on workstation # [id number]
== END ==
LOC: CARD 08:29
PROVIDERS: ATTEND Surgery
DX: R10.13 Epigastric pain (principal)
CPT/HCPCS: 78226

== ENCOUNTER → 2023-06-01 | Outpatient (CLI) | payer MEDICARE, MEDICAID ==
[~2023-06-01] VITALS: Ht 162.6 cm; Wt 86.6 kg
[~2023-06-01] MED LIST changes: +DOCU-143 PO; +HYOS0.1281 PO; +NF-VITD400 PO; +NYST15CR36 TP; +NYST15OI13 TP; +OMEP40CA6 PO; -morphine INJ 4 MG/ML 1 ML (VIAL/SYRINGE) ONE
== END | disposition home or self-care (01) ==
LOC: PREOP 05:38
PROVIDERS: ATTEND Surgery
DX: Z01.818 Encounter for other preprocedural examination (principal)

== ENCOUNTER 2023-06-08 09:20 | Day surgery (SDC) | payer MEDICARE, MEDICAID ==
[2023-06-08] VITALS (11 sets, daily range): BP systolic 98–153; BP diastolic 53–85
[~2023-06-08] VITALS: Ht 162.6 cm; Wt 86.6 kg
[~2023-06-08 09:20] MED LIST changes: -DOCU-143 PO
[2023-06-08] MEDS ORDERED: ceFAZolin INJECTION 2,000 MG in NS (IVPB) 50 ML 50 ML IV ONE (09:45)
[2023-06-08] MEDS: LACTATED RINGERS 1,000 ML 1,000 ML IV PRN ×2 (10:02→14:20)
--- NOTE | 2023-06-08 10:05 | Progress Note-Pre Operative ---
Pre-Operative Progress Note Date H&P Reviewed: Jun 08, 2023 Time H&P Reviewed: 10:05 History & Physical: H&P Reviewed, Patient Examed, No changes noted Pre-Operative Diagnosis: biliary dyskinesia EZRA CRUZ DO Jun 08, 2023 10:05
[2023-06-08] MEDS ORDERED: LIDOCAINE 2% w/EPI 1:100,000 20 ML VIAL ONE (11:00)
[2023-06-08] MEDS ORDERED: ROCURONIUM 50 MG/5 ML VIAL IV ONE (11:43)
[2023-06-08] MEDS ORDERED: LIDOCAINE PF 2% 5 ML VIAL ONE (11:43)
[2023-06-08] MEDS ORDERED: SEVOFLURANE (ULTANE) 15 ML INHAL SOLN ONE (11:43)
[2023-06-08] MEDS ORDERED: MIDAZOLAM INJ 2 MG/2 ML VIAL ONE (11:43)
[2023-06-08] MEDS ORDERED: proPOfol INJECTION 200 MG/20 ML VIAL IV ONE (11:43)
[2023-06-08] MEDS ORDERED: fentaNYL INJECTION 100 MCG/2 ML VIAL ONE ×3 (11:43→13:22)
[2023-06-08] MEDS ORDERED: NEOSTIGMINE 1 MG/1ML 10 ML VIAL ONE (12:33)
[2023-06-08] MEDS ORDERED: GLYCOPYRROLATE INJ 0.2 MG/ML 2 ML VIAL ONE (12:33)
[2023-06-08] MEDS ORDERED: ACHD5005 PO (12:41)
[2023-06-08] MEDS ORDERED: DOCU-143 PO (12:41)
--- NOTE | 2023-06-08 12:42 | Discharge Inst-Simple/Standard ---
Discharge Inst-Standard Discharge Medications New, Converted or Re-Newed RX: Transmitted to Pharmacy Patient Instructions/Follow Up Plan of Care/Instructions/FU: 2 weeks Mark Activity as Tolerated: No Discharge Diet: Regular Diet Other Inst to Patient Follow up Appt: Make appointment for 2 weeks. Instructions: No lifting greater than 10 pounds. No strenuous activity. May shower in 24 hours, no tub bath or soaking. Use incentive spirometer at home as directed. No Smoking Skin/Wound Care: You have special glue over incision, it will fall off on it's own. Symptoms to Report: Appetite Changes, Extremity Discoloration, Numbness/Tingling, Swelling Increased, Bleeding Excessive, Eyesight Changes, Pain Increased, Urine Color Change, Constipation(Persistent), Fever over 101 degree F, Pain/Pressure in chest, Urinating Difficulty, Cough Up/Vomit Blood, Heart Beat Irreg/Pounding, Pain/Pressure in jaw, Vaginal Bleeding Increase, Cramps in feet or legs, Lightheadedness, Pain/Pressure in shoulder, Diarrhea(Persistent), Memory Changes Suddenly, Questions/Concerns, Weight gain consecutive days, Dizziness/Fainting, Nausea/Vomiting, Shortness of Breath, Weight gain over 2 pounds. If eyes or skin turn yellow notify physician. If questions or concerns contact your physician Or seek help at emergency department. EZRA CRUZ DO Jun 08, 2023 12:42
--- NOTE | 2023-06-08 12:44 | Progress Note-Post Operative ---
Post-Operative Progess Note Surgeon (s)/Broomcorn Grader (s) Surgeon EZRA CRUZ DO Broomcorn Grader: Dr. Cook to assist in retraction dissection and closure. Pre-Operative Diagnosis biliary dyskinesia Post-Operative Diagnosis same Procedure & Operative Findings Date of Procedure 06/08/23 Procedure Performed/Findings PROCEDURE: Laparoscopic cholecystectomy with intraoperative cholangiogram. COMPLICATIONS: None. PROCEDURE: The patient was taken to the operating suite and was prepped and draped in sterile fashion. A surgical pause was performed. Just superior to the umbilicus, a 12 mm incision was made. Dissection was taken down to the fascia, which was then scored and grasped with a Sam and the abdomen was then entered. A 0 Vicryl suture was placed in a [id number] fashion and a Streeter trocar was placed and secured. Pneumoperitoneum was achieved. A 5mm trochar place in the subxyphoid and 2 in the right upper quadrant. The gallbladder was then grasped and elevated by Dr. Cook. The cystic duct, and cystic artery were then dissected out. Clip was placed on the distal portion of the cystic duct which was then partially transected. An arrow catheter was inserted into the duct. The cholangiogram was then performed. No filing defects and contrast made its way into the duodenum. Catheter removed. Clips were placed on proximal portion of the cystic duct and then the duct was then transected. Clips were placed along the proximal and distal portion of the cystic artery which was then transected. Hook cautery was used to dissect the gallbladder from the gallbladder fossa achieving hemostasis. The gallbladder was placed in an Endobag and removed through the 12 mm trocar site. The abdomen was then reinspected. Copious amounts of irrigation were used to irrigate the abdomen and there were no signs of active bleeding. Hemostasis had been achieved. The 12 mm fascial defect was then closed with 0 Vicryl suture that had been placed in a tuglrm-dr-wbsol fashion. The abdomen was then desufflated, the trocars were removed. The abdomen was then washed and dried. The skin was then closed using 4-0 Monocryl in a subcuticular fashion. The abdomen was washed and dried and Skin Affix was place over incisions. Patient tolerated the procedure well without any complications and was taken to the recovery room in stable condition. Anesthesia Type general Estimated Blood Loss Estimated blood loss (mL): minimal Specimens/Packing Specimens Removed gallbladder EZRA CRUZ DO Jun 08, 2023 12:44
[2023-06-08] MEDS ORDERED: ONDANSETRON INJECTION 4 MG/2 ML (SDV) ONE (13:22)
[2023-06-08] MEDS ORDERED: ONDANSETRON INJECTION 4 MG/2 ML (SDV) IVP PRN (13:30)
[2023-06-08] MEDS ORDERED: fentaNYL INJECTION 100 MCG/2 ML VIAL IVP ONE (13:30)
--- NOTE | 2023-06-08 13:45 | Anesthesia-General Post-Op ---
General Patient Condition Mental Status/LOC: Same as Preop Cardiovascular: Satisfactory Nausea/Vomiting: Absent Respiratory: Satisfactory Pain: Controlled Complications: Absent Post Op Complications Complications None Follow Up Care/Instructions Patient Instructions None needed. Anesthesia/Patient Condition Patient Condition Patient was having some pain and nausea, but it is better currently after fentanyl and zofran. She is ready for return to [facility] [place]. No apparent adverse anesthesia problems. No complications reported per nursing. RIA FLETCHER DO Jun 08, 2023 13:45
[2023-06-08] MEDS ORDERED: PROMETHAZINE INJ 25 MG/ML VIAL IVP ONE ×2 (14:15→15:30)
[2023-06-08] MEDS ORDERED: PROMETHAZINE INJ 25 MG/ML VIAL ONE (14:17)
[2023-06-08] MEDS ORDERED: HYDROcodone/ACETAMINOPHEN 5 MG/325 MG TABLET ONE (14:36)
[2023-06-08] MEDS ORDERED: HYDROcodone/ACETAMINOPHEN 5 MG/325 MG TABLET PO ONE ×2 (14:45→15:30)
--- NOTE | 2023-06-08 15:41 | Diagnostic Imaging Report ---
INDICATION: Cholecystectomy Operative cholangiogram performed in routine fashion with the portable intensifier in surgery. 80 views are obtained, 28.7 seconds of fluoroscopy time was used. 13.70 mGy of exposure. Contrast injection demonstrates some extravasation of the injection site but there are no filling defects in the common duct detected. Study is partially limited. IMPRESSION: Intraoperative fluoroscopy views show no overt common duct stone. There is extravasation at the injection site. Dictated by: Dictated on workstation # [id number]
== END 2023-06-08 17:10 | disposition home or self-care (01) ==
LOC: SDC 09:20
PROVIDERS: ATTEND Surgery
DX: K82.8 Other specified diseases of gallbladder (principal); K81.1 Chronic cholecystitis; Z87.891 Personal history of nicotine dependence; E66.9 Obesity, unspecified; Z68.32 Body mass index [BMI] 32.0-32.9, adult
CPT/HCPCS: 76000; 87081